=== PATIENT | male | born 1945 | race Caucasian/White ===

== ENCOUNTER 2023-03-12 09:05 | Emergency (ER) | payer MEDICARE, OTHER, SELFPAY ==
[2023-03-12 09:18] VITALS: BP 182/90; PULSE 52; RESP 16; TEMP 36.7; O2SAT 100; BMI 27.5
--- NOTE | 2023-03-12 09:23 | XR_ITS ---
The [address] [address] Patient Name: DAVID MCKINNEY MRN: [id number] date: 1945 Sex: M Assigned Patient Location: ER Current Patient Location: ED.MAIN Accession/Order Number: [id number] Exam Date: 03/12/2023 09:35 Report Date: 03/12/2023 10:13 At the request of: RADHA MCCALL Procedure: XR finger RT min 2V EXAM: XR finger RT min 2V HISTORY: injury , laceration to right middle finger COMPARISON: None. TECHNIQUE: 3 views of the right digit, third finger. FINDINGS: Metallic BB [place] area of concern. Bones: No acute or aggressive appearing bony lesion. Joints: Slight ulnar apex/flexion deformity of the third DIP joint, likely chronic in nature-clinical correlation is necessary. 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 Significant degenerative changes of the second DIP joint are also noted. Mild osteoarthritis of the third MCP joint. Soft tissues: There is focal soft tissue swelling at location of metallic BB in patient with known laceration. No radiopaque foreign body is demonstrated. XR/XR finger RT min 2V IMPRESSION: Significant soft tissue swelling at location of laceration without evidence of underlying acute bony change. Chronic findings as above. Electronically authenticated by: THALIA BLACKMON Date: 03/12/2023 10:13
[2023-03-12] MEDS: ADACEL DIPH,PERTUSS(ACELL),TET VAC/PF 0.5 ML ADULT SYRINGE IM (09:33)
[2023-03-12] MEDS: LIDOCAINE HCL 1% PF 20 MG/2 ML VIAL 5 ML INJ (09:59)
--- NOTE | 2023-03-12 10:26 | ED_ITS ---
HPI - General Adult General Chief complaint: Wound/Laceration Stated complaint: CUT FINGER ON R HAND Time Seen by Provider: 03/12/23 09:37 Source: patient Mode of arrival: walk-in Limitations: no limitations History of Present Illness HPI narrative: Patient is a 77-year-old male who is presenting to the Emergency Room with chief complaint of a right middle finger laceration of 3 cm, concave oblique laceration over the right proximal PIP joint of the right middle finger. Patient was working at home, this is not worker's comp related injury. Patient accidentally cut himself a piece of aluminum sheet metal when he is working on a project at home. Patient needs a tetanus update today. Patient is left-hand dominant. Patient is retired. 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 Patient had no pulsatile bleeding. Patient had no loss of motor or sensory function to the right middle finger. Patient has no other injury or acute complaints at this time. Patient blood pressure is elevated, it was checked manually in triage. Patient does take blood pressure medication. Patient is compliant medication. . All systems are negative except as noted/marked. All systems reviewed and otherwise negative. . Nurses note and vital signs reviewed and patient is not hypoxic. General: The patient appears well and in no apparent distress. Patient is resting comfortably on cart. Patient is not toxic, lethargic, or listless Skin: Warm, dry, no pallor noted. There is no rash noted. No petechiae, purpura. Patient has a 3 cm concave laceration with a oblique nature of the laceration over the right middle finger PIP joint, dorsal aspect. No venous or pulsatile bleeding at this time. Patient has full flexion and extension of the right middle finger with no difficulty. No tendon laceration noted. Patient has superficial and deep flexor tendons intact. Head: Normocephalic, atraumatic Eye: Normal conjunctiva, no drainage, EOMI. PERRL Ears, Nose, Mouth, and Throat: oral mucosa is moist. Nares patent. Mouth without vesicles. Cardiovascular: Regular Rate and Rhythm, no murmur, gallop, rub Respiratory: Patient is in no distress, no accessory muscle use, lungs are clear to auscultation, no wheezing, rales or rhonchi Musculoskeletal: Patient has full range of motion of all of the extremities, no motor, sensory, or focal neurological deficits. see skin assessment above Neurological: A&O x3, normal speech Psychiatric: Cooperative Related Data Previous Rx's Medication Instructions Recorded cephalexin 500 mg capsule 500 mg PO Q12H 7 days #14 caps 03/12/23 Allergies Allergy/AdvReac Type Severity Reaction Status Date / Time No Known Drug Allergies Allergy Verified 03/12/23 09:20 Exam Constitutional Vital Signs, click to edit/add: Last Vital Signs Temp 98.1 F 03/12/23 09:18 Pulse 52 L 03/12/23 09:18 Resp 16 03/12/23 09:18 BP 182/90 H 03/12/23 09:18 Pulse Ox 100 03/12/23 09:18 O2 Del Method Room Air 03/12/23 09:18 Course Vital Signs Vital signs: Vital Signs Temperature 98.1 F 03/12/23 09:18 Pulse Rate 52 L 03/12/23 09:18 Respiratory Rate 16 03/12/23 09:18 Blood Pressure 182/90 H 03/12/23 09:18 Pulse Oximetry 100 03/12/23 09:18 Oxygen Delivery Method Room Air 03/12/23 09:18 Temperature 98.1 F 03/12/23 09:18 Pulse Rate 52 L 03/12/23 09:18 Respiratory Rate 16 03/12/23 09:18 Blood Pressure 182/90 H 03/12/23 09:18 Pulse Oximetry 100 03/12/23 09:18 Oxygen Delivery Method Room Air 03/12/23 09:18 Medical Decision Making MDM Narrative Medical decision making narrative: Patient had a laceration working construction home project. Patient is left-hand dominant. Patient had a 3 cm concave somewhat irregular border stellate laceration over the right PIP joint of the right middle finger. Patient is left- hand dominant. Patient had 5 simple sutures placed. Patient's heart procedure well without difficulty. Patient is placed on Keflex prophylactically. Patient was sutures out in 9-[address] Serra will be taking sutures out. 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 Patient understands wound care but it was discussed anyway and on discharge paperwork. No questions at discharge. Discharge Plan Discharge Chief Complaint: Wound/Laceration Clinical Impression: Laceration Patient Disposition: Home, Self-Care Condition: Good Prescriptions / Home Meds: New cephalexin 500 mg capsule 500 mg PO Q12H 7 Days Qty: 14 0RF Instructions: Finger Laceration (ED) Additional Instructions: Sutures out in 9?10 days. Use topical antibiotic ointment 3-4 times a day to help with healing and prevent infection. Keep laceration clean and dry during the day, Leave it open to air and oxygen at nighttime to help with healing. Did not have your finger submerged underwater for the next 2 weeks, he can wash her hands and take a shower. We are finger aluminum splint for the next 3-4 days to help promote healing. Stand Alone Forms: Portal Instructions Referrals: ALEX SERRA [Primary Care Provider] - 1 week Procedures ED Procedure Instructions Procedures Procedures: Laceration repair done by Dr. Flores. Patient was cleaned, prepped, draped in normal sterile fashion. The patient was anesthetized with [4cc of 1 percent lidocaine]. Patient had a tourniquet placed for 15 minutes to the right middle finger. Patient had good anesthetic effect. Patient had his hand initially soaked in Hibiclens solution. Patient was cleaned with Betadine, patient was copiously irrigated with sterile water, approximately 100 mL. Using 3-0 Prolene suture, patient had 5 simple interrupted sutures placed To the 3 cm irregular, stellate flap with oblique nature. The base of the wound was seen. Patient had no tendon involvement. No pulsatile bleeding. Patient tolerated procedure well without difficulty. Patient's right middle finger was neurovascular intact Throughout after the tourniquet was removed. Normal cap refill.Patient was cleaned; bacitracin and dry dressing was placed. Patient had Telfa, dry dressing, and aluminum finger splint placed as well.
[2023-03-12] MEDS: BACITRACIN 0.9 GM PACKET 1 PACKET TOPICAL (10:33)
[2023-03-12 10:34] VITALS: BP 160/72
== END 2023-03-12 10:36 | disposition home or self-care (01) ==
PROVIDERS: Emergency Provider Emergency Medicine; PCP Family Medicine
DX: S61.212A Laceration without foreign body of right middle finger without damage to nail, initial encounter (principal); Z23 Encounter for immunization; W26.8XXA Contact with other sharp object(s), not elsewhere classified, initial encounter
CPT/HCPCS: 12002; 73140; 90471; 90715; 99284

== ENCOUNTER 2024-02-02 15:48 | Outpatient (OUT) | payer MEDICARE, OTHER, SELFPAY ==
--- NOTE | 2024-02-02 15:51 | US_ITS ---
The [address] [address] Patient Name: DAVID MCKINNEY MRN: [id number] date: 1945 Sex: M Assigned Patient Location: US Current Patient Location: US Accession/Order Number: [id number] Exam Date: 02/02/2024 16:00 Report Date: 02/02/2024 17:40 At the request of: SHUBHAM PAZ Procedure: US venous doppler UE LT EXAM: US venous doppler UE LT HISTORY: Left Arm Swelling With Redness, Left Arm Pain COMPARISON: None. TECHNIQUE: Multiple sonographic images of the deep veins of the left upper extremity were obtained, supplemented with Doppler. FINDINGS: The deep veins of the left upper extremity are fairly well visualized from the neck to the mid forearm. No filling defect is identified to indicate a thrombus. There is normal compression augmentation of flow to the accessible deep veins. US/US venous doppler UE LT IMPRESSION: There is no direct or indirect evidence of deep vein thrombosis in the left upper extremity at this time. Electronically authenticated by: ALICE TINEO Date: 02/02/2024 17:40
--- NOTE | 2024-02-02 15:51 | XR_ITS ---
The [address] [address] Patient Name: DAVID MCKINNEY MRN: [id number] date: 1945 Sex: M Assigned Patient Location: US Current Patient Location: Accession/Order Number: [id number] Exam Date: 02/02/2024 15:53 Report Date: 02/03/2024 07:31 At the request of: SHUBHAM PAZ Procedure: XR forearm LT 2V PROCEDURE: XR forearm LT 2V COMPARISON: None. HISTORY: Left Arm Swelling With Redness, Left Arm Pain FINDINGS: BONES:No acute fracture or dislocation. Joint space narrowing and subchondral cystic changes throughout the wrist. Chondrocalcinosis. No significant proliferative changes SOFT TISSUES:Negative. No visible soft tissue swelling. EFFUSION:None visible. OTHER: Negative. XR/XR forearm LT 2V IMPRESSION: Moderate erosive/inflammatory arthritis of the wrist Electronically authenticated by: SHRADDHA EAGLE Date: 02/03/2024 07:31
== END 2024-02-02 15:49 | disposition home or self-care (01) ==
LOC: US 15:48
PROVIDERS: PCP Family Medicine; Visit Provider Nurse Practitioner
DX: R60.0 Localized edema (principal); L53.9 Erythematous condition, unspecified; M79.632 Pain in left forearm; M13.832 Other specified arthritis, left wrist
CPT/HCPCS: 73090; 93971

== ENCOUNTER 2024-03-27 15:08 | Emergency (ER) | payer MEDICARE, OTHER, SELFPAY ==
[2024-03-27 15:16] VITALS: BP 168/72; PULSE 52; TEMP 36.3; O2SAT 98; BMI 24.8
--- OUTSIDE RECORDS SUMMARY | 2024-03-27 15:21 | XMS_ITS | CCD ---
Author Organization [facility]iniSyms Care Team Providers Care Trust Mail Clerk Name Role Phone DR NGOC WASHINGTON Attending Jeny WASHINGTON, DR NGOC Nguyen Admitting Unavailable SOMMER, DR NGOC Nguyen Primary Care Unavailable SOMMER, DR NGOC Nguyen Consulting Unavailable SOMMER, DR NGOC Nguyen Admitting Unavailable SOMMER, DR NGOC Nguyen Primary Care Unavailable SOMMER, DR NGOC Nguyen Consulting Unavailable SOMMER, DR NGOC Nguyen Attending Garima Anthony Primary Care Physician [phone] Yhoan Serra Attending Yohan Eli Attending Yohan Eli Attending Unavailable Yohan Serra Attending Garima Anthony Attending Garima Anthony Attending Unavailable Yohan Serra Attending Unavailable Yohan Serra Referring Unavailable John Whitt Attending John Hollis Attending Unavaila gage NONE, XXXX Referring Unavailable John Whitt Consulting John Hollis Admitting John Hollis Referring Griseldaa John Larkin Attending Griseldaa John Larkin Consulting Griseldaa John Larkin Consulting Unavaila Yohan Vega Attending Yohan Eli Attending Garima Anthony Attending Unavailable Allergies Allergy Classification Reported Allergen(s) Allergy Type Date of Onset Reaction(s) Facility (1 source) No Known Medication Allergies; Translations: [No Known Medication Allergies] Propensity to adverse reactions (disorder) [facility] Repository Medications Current Medications Medication Drug Class(es) Dates Sig (Normalized) Sig (Original) aspirin 81 mg delayed release oral tablet (3 sources) Platelet Aggregation Inhibitor, Nonsteroidal Anti-inflammatory Drug Start: 02-09-2019 take 1 mg by mouth once daily aspirin 81 mg Oral EC Tab mg tab(s), Oral, Daily, Refills(s) 0 Start Date: 02/09/19 Status: Ordered losartan potassium 100 mg oral tablet (3 sources) Angiotensin 2 Receptor Dimitry Start: 05-05-2023 take 1 tablet by mouth once daily losartan 100 mg Tab 100 mg = 1 tab(s), Oral, Daily, # 90 tab(s), Refills(s) 0, Pharmacy: [facility]/pharmacy #[id number], 158, cm, 05/05/23 10:49:00 EDT, Height/Length Dosing, 65.1, kg, 05/05/23 10:49:00 EDT, Weight Dosing Start Date: 05/05/23 Status: Ordered 24 hr metoprolol succinate 25 mg extended release oral tablet (3 sources) beta-Adrenergic Dimitry Start: 03-24-2023 take 1 tablet by mouth twice daily metoprolol 25 mg ER Tab 25 mg = 1 tab(s), Oral, BID, Refills(s) 0 Start Date: 03/24/23 Status: Ordered pantoprazole 40 mg extended release oral tablet (3 sources) Proton Pump Inhibitor Start: 02-09-2019 take 1 mg by mouth once daily pantoprazole 40 mg Oral EC Tab mg tab(s), Oral, Daily, Refills(s) 0 Start Date: 02/09/19 Status: Ordered rosuvastatin calcium 40 mg oral tablet (3 sources) HMG-CoA Reductase Inhibitor Start: 03-24-2023 take 1 tablet by mouth once daily rosuvastatin 40 mg Tab 40 mg = 1 tab(s), Oral, Daily, Refills(s) 0 Start Date: 03/24/23 Status: Ordered Problems Active Problems Problem Classification Problem Date Documented Date Episodic/Chronic Abdominal hernia (3 sources) Left inguinal hernia 02-09-2019 Episodic Conditions associated with dizziness or vertigo (3 sources) Dizziness 05-13-2023 Episodic Coronary atherosclerosis and other heart disease (3 sources) Coronary arteriosclerosis 02-09-2019 Chronic Esophageal disorders (3 sources) Gastroesophageal reflux disease 02-09-2019 Chronic Essential hypertension (3 sources) Hypertensive disorder 05-05-2023 Chronic Other injuries and conditions due to external causes (3 sources) Injury of finger 03-24-2023 Episodic Rheumatoid arthritis and related disease (3 sources) Rheumatoid arthritis 05-13-2023 Chronic Unclassified (3 sources) CONTACT W/AND (SUSP) EXPOS COVID-19; Translations: [CONTACT W/AND (SUSP) EXPOS COVID-19] Onset: 09-18-2020 Unclassified (3 sources) Patient encounter status 05-13-2023 Viral infection (1 source) COVID-19; Translations: [COVID-19] Onset: 09-06-2021 Past or Other Problems Problem Classification Problem Date Documented Da te Episodic/Chronic Unclassified (1 source) CONTACT W/AND (SUSP) EXPOS COVID-19; Translations: [CONTACT W/AND (SUSP) EXPOS COVID-19] Onset: 09-04-2021 Results Test Name Value Interpretation Reference Range Facil ity Physician Orderon 02-03-2024 Physician Order [id number]# 1.00TIFF [facility] RAD - MISCon 02-03-2024 RAD - MISC [id number]# 1.00TIFF [facility] RAD - Ultrasound Reporton RAD - Ultrasound Report [id number]# 1.00TIFF [facility] Ambulatory Visit Summaryon 0 02-02-2024 Ambulatory Visit Summary DAVID MCKINNEY :1945 Visit Date:02/02/2024 Ambulatory Visit Instructions Your Diagnosis Left arm swelling BMI 25.0-25.9,adult Non-smoker Wrist pain, left Your Care Team Attending Physician - Garima Arredondo Primary Care Physician - Garima Arredondo This Is Your Medications List aspirin (aspirin 81 mg Oral EC Tab) celecoxib (CeleBREX 200 mg Cap) losartan (losartan 100 mg Tab) methylPREDNISolone (Medrol 4 mg Tab) metoprolol (metoprolol 25 mg ER Tab) pantoprazole (Pantoprazole [address] Tab) rosuvastatin (rosuvastatin 40 mg Tab) tramadol (traMADOL 50 mg Tab) Procedures Performed Hip replacement (05/30/2020), Repair initial inguinal hernia, age 5 years or older; reducible (02/03/2019), Colonoscopy (09/29/2013), Placement of stent in cardiac conduit (08/25/2002), Repair of inguinal hernia (08/25/1979), Arthroscopy of knee. Discharge Vitals Heart Rate (Peripheral) 78 Respiratory Rate 18 Blood Pressure 152/72 Height 158.0 cm Height 62 in Weight 62.7 kg Weight 137.94 lb BMI 25.12 What to do next Scheduled Follow-Up Appointments Friday 8:00 AM EDT With: Where: [facility] Invalid Interpretation Code [address] [place] [address]- \.br\ Friday 8:15 AM EDT \.br\ With: Ponce ESPARZA, Yohan Rdz\.br\ Where: [facility] Family Medicine Office/Clini c Noteon 02-02-2024 Family Medicine Office/Clinic Note HPI Staff David is a 78 year old male presenting for acute visit Onset: Location: left hand/wrist Aggravated by: movement Relieved by: nothing Questions/Concerns: pt states he was cutting something and felt a pop left wrist. pt can't move hand and pain is aching burning sharp. 04/03, Has been taking Aleve and doesn't help it at all, Ice but didn't help, has been elevating. History of Present Illness pt presents today with left lower arm swelling and pain Review of Systems PHQ Score Initial Depression Screen Score: 0 SCORE Physical Exam Vitals & Measurements HR: 78(Peripheral) RR: 18 BP: 152/72 SpO2: 94% HT: 62 in HT: 158.0 cm WT: 62.7 kg WT: 137.94 lb BMI: 25.12 General: alert, no acute distress ENMT: oral mucosa moist, no pharyngeal erythema or exudate Cardiovascular: regular rate and rhythm, normal peripheral perfusion Respiratory: Lungs CTA, respirations non labored Extremities: no deformity, no trauma Neurological: oriented x 4, LOC appropriate for age, CN II-XII intact, motor strength equal & normal bilaterally, speech normal left lower arm is swollen, tender to touch or movement and warm to touch Assessment/Plan 1. Left arm swelling (M79.89: Other specified soft tissue disorders) pt was cutting siding and felt a pop in his left wrist on of last week. swelling didn't start until this weekend. left lower arm is swollen, tender to touch or any movement and red and warm to touch. will send to [facility] for doppler u/s and x ray. will call with results if those images are negative will order MRI. RTC 1 week Ordered: celecoxib, 200 mg = 1 cap(s), Oral, BID, # 60 cap(s), Refills(s) 0, Pharmacy: [facility]/pharmacy #[id number], 158, cm, 02/02/24 15:19:00 EDT, Height/Length Dosing, 62.7, kg, 02/02/24 15:19:00 EDT, Weight Dosing methylPREDNISolone, = 1 packet(s), Oral, As Directed, as directed on package labeling, X 6 day(s), # 21 tab(s), Refills(s) 0, Pharmacy: [facility]/pharmacy #[id number], 158, cm, 02/02/24 15:19:00 EDT, Height/Length Dosing, 62.7, kg, 02/02/24 15:19:00 EDT, Weight Dosing tramadol, 50 mg = 1 tab(s), Oral, Bedtime, # 12 tab(s), Refills(s) 0, Pharmacy: [facility]/pharmacy #[id number], 158, cm, 02/02/24 15:19:00 EDT, Height/Length Dosing, 62.7, kg, 02/02/24 15:19:00 EDT, Weight Dosing 2. BMI 25.0-25.9,adult (Z68.25: Body mass index [BMI] 25.0-25.9, adult) BMI education complete Ordered: celecoxib, 200 mg = 1 cap(s), Oral, BID, # 60 cap(s), Refills(s) 0, Pharmacy: [facility]/pharmacy #[id number], 158, cm, 02/02/24 15:19:00 EDT, Height/Length Dosing, 62.7, kg, 02/02/24 15:19:00 EDT, Weight Dosing methylPREDNISolone, = 1 packet(s), Oral, As Directed, as directed on package labeling, X 6 day(s), # 21 tab(s), Refills(s) 0, Pharmacy: [facility]/pharmacy #[id number], 158, cm, 02/02/24 15:19:00 EDT, Height/Length Dosing, 62.7, kg, 02/02/24 15:19:00 EDT, Weight Dosing tramadol, 50 mg = 1 tab(s), Oral, Bedtime, # 12 tab(s), Refills(s) 0, [id number] 158, cm, 02/02/24 15:19:00 EDT, Height/Length Dosing, 62.7, kg, 02/02/24 15:19:00 EDT, Weight Dosing 3. Non-smoker (Z78.9: Other specified health status) continue not smoking Ordered: celecoxib, 200 mg = 1 cap(s), Oral, BID, # 60 cap(s), Refills(s) 0, [id number], 158, cm, 02/02/24 15:19:00 EDT, Height/Length Dosing, 62.7, kg, 02/02/24 15:19:00 EDT, Weight Dosing methylPREDNISolone, = 1 packet(s), Oral, As Directed, as directed on package labeling, X 6 day(s), # 21 tab(s), Refills(s) 0, [id number], 158, cm, 02/02/24 15:19:00 EDT, Height/Length Dosing, 62.7, kg, 02/02/24 15:19:00 EDT, Weight Dosing tramadol, 50 mg = 1 tab(s), Oral, Bedtime, # 12 tab(s), Refills(s) 0, [id number], 158, cm, 02/02/24 15:19:00 EDT, Height/Length Dosing, 62.7, kg, 02/02/24 15:19:00 EDT, Weight Dosing Wrist pain, left (M25.532: Pain in left wrist) will send anti inflammatory, medrol dose pack and tramadol Ordered: tramadol, 50 mg = 1 tab(s), Oral, Bedtime, # 12 tab(s), Refills(s) 0, [id number], 158, cm, 02/02/24 15:19:00 EDT, Height/Length Dosing, 62.7, kg, 02/02/24 15:19:00 EDT, Weight Dosing Follow-up No qualifying data available Problem List/Past Medical History Ongoing BMI 27.0-27.9,adult CAD (coronary artery disease) Colon cancer screening Dizziness GERD (gastroesophageal reflux disease) HTN (hypertension) Hyperlipidemia Left arm swelling Left inguinal hernia RA (rheumatoid arthritis) Historical No qualifying data Procedure/Surgical History Hip replacement (05/30/2020), Repair initial inguinal hernia, age 5 years or older; reducible (02/03/2019), Colonoscopy (09/29/2013), Placement of stent in cardiac conduit (08/25/2002), Repair of inguinal hernia (08/25/1979), Arthroscopy of knee. Medications aspirin 81 mg Oral EC Tab, Oral, Daily CeleBREX 200 mg Cap, 200 mg= 1 cap(s), Oral, BID losartan 100 mg Tab, 100 mg= 1 tab(s), Oral, Daily, 1 refills Medrol 4 mg Tab, 1 packet(s), Oral, As Directed metopr (more content not included)... [facility] Comment on above: Result Comment: Elec tronically Signed By: Garima Arredondo\.br\Date and Time Signed: 02/02/24 15:39 EDT Ambulatory Visit Summaryon 0 12-23-2023 Ambulatory Visit Summary DAVID MCKINNEY :1945 Visit Date:12/23/2023 Ambulatory Visit Instructions Your Diagnosis HTN (hypertension) Dizziness RA (rheumatoid arthritis) CAD (coronary artery disease) BMI 26.0-26.9,adult Over weight Nonsmoker Your Care Team Attending Physician - Yohan Serra MD Primary Care Physician - Garima Arredondo This Is Your Medications List aspirin (aspirin 81 mg Oral EC Tab) losartan (losartan 100 mg Tab) metoprolol (metoprolol 25 mg ER Tab) pantoprazole (Pantoprazole [address] Tab) rosuvastatin (rosuvastatin 40 mg Tab) Procedures Performed Hip replacement (05/30/2020), Repair initial inguinal hernia, age 5 years or older; reducible (02/03/2019), Colonoscopy (09/29/2013), Placement of stent in cardiac conduit (08/25/2002), Repair of inguinal hernia (08/25/1979), Arthroscopy of knee. Discharge Vitals Temperature (Temporal Artery) 36.4 ?C Heart Rate (Peripheral) 58 Respiratory Rate 16 Blood Pressure 112/70 Height 158 cm Height 62 in Weight 65.8 kg Weight 144.76 lb BMI 26.36 What to do next Scheduled Follow-Up Appointments Friday 8:00 AM EDT With: Where: [facility] Invalid Interpretation Code [address] [place] [address]- \.br\ Friday 8:15 AM EDT \.br\ With: Ponce ESPARZA, Yohan Rdz\.br\ Where: [facility] Medicine Office/Clini c Noteon 12-23-2023 Family Medicine Office/Clinic Note HPI Staff David is a 78 year old male presenting for one month follow up htn and CAD Patient is here for follow up on hypertension. How often are you checking your blood pressure? occasionally What are your average readings? doing well Yearly BMP: 04/29/23 [facility] questions/concerns: saw supervisor carbon electrodes Jul 10 everything checked out okay Review of Systems PHQ Score Initial Depression Screen Score: 0 SCORE Physical Exam Vitals & Measurements T: 36.4 ?C(Temporal Artery) HR: 58(Peripheral) RR: 16 BP: 112/70 SpO2: 99% HT: 62 in HT: 158 cm WT: 65.8 kg WT: 144.76 lb BMI: 26.36 Assessment/Plan 1. HTN (hypertension) (I10: Essential (primary) hypertension) - At goal. - NO issues. - Will refill. - No issues with meds 2. Dizziness (R42: Dizziness and giddiness) - No dizziness today - Will monitor 3. RA (rheumatoid arthritis) (M06.9: Rheumatoid arthritis, unspecified) - Continue as before. - Follow up PRN - Not on meds 4. CAD (coronary artery disease) (I25.10: Atherosclerotic heart disease of [place] coronary artery without angina pectoris) - Stable. - Seeing cardio - No CP 5. BMI 26.0-26.9,adult (Z68.26: Body mass index [BMI] 26.0-26.9, adult) - BMI education given 6. Over weight (E66.3: Overweight) - Diet and exercise advised 7. Nonsmoker (Z78.9: Other specified health status) - Please continue to not smoke. Orders: losartan, 100 mg = 1 tab(s), Oral, Daily, # 90 tab(s), Refills(s) 1, Pharmacy: [facility]/pharmacy #[id number], 158, cm, 12/23/23 8:11:00 EDT, Height/Length Dosing, 65.8, kg, 12/23/23 8:11:00 EDT, Weight Dosing pantoprazole, 40 mg = 1 tab(s), Oral, Daily, # 90 tab(s), Refills(s) 1, Pharmacy: [facility]/pharmacy #[id number], 158, cm, 12/23/23 8:11:00 EDT, Height/Length Dosing, 65.8, kg, 12/23/23 8:11:00 EDT, Weight Dosing Follow-up No qualifying data available Patient Education BMI for Adults Problem List/Past Medical History Ongoing BMI 27.0-27.9,adult CAD (coronary artery disease) Colon cancer screening Dizziness GERD (gastroesophageal reflux disease) HTN (hypertension) Hyperlipidemia Left inguinal hernia RA (rheumatoid arthritis) Historical No qualifying data Procedure/Surgical History Hip replacement (05/30/2020), Repair initial inguinal hernia, age 5 years or older; reducible (02/03/2019), Colonoscopy (09/29/2013), Placement of stent in cardiac conduit (08/25/2002), Repair of inguinal hernia (08/25/1979), Arthroscopy of knee. Medications aspirin 81 mg Oral EC Tab, Oral, Daily losartan 100 mg Tab, 100 mg= 1 tab(s), Oral, Daily, 1 refills metoprolol 25 mg ER Tab, 25 mg= 1 tab(s), Oral, BID Pantoprazole [address] Tab, 40 mg= 1 tab(s), Oral, Daily, 1 refills rosuvastatin 40 mg Tab, 40 mg= 1 tab(s), Oral, Daily Allergies No Known Medication Allergies Social History Alcohol - Denies Alcohol Use, 02/17/2019 Current, Beer, Liquor, 1-2 times per month, 1 drinks/episode average. 2.00 drinks/episode maximum. Alcohol use interferes with work or home: No. Drinks more than intended: No. Others hurt by drinking: No. Ready to change: No. Household alcohol concerns: No., 04/15/2023 Substance Abuse - Denies Substance Abuse, 02/17/2019 Tobacco Never (less than 100 in lifetime) Tobacco Use:. Never Smokeless Tobacco Use:. Household tobacco concerns: No., 12/23/2023 Family History Cardiac arrest: Father. Immunizations Vaccine Date Status Comments influenza virus vaccine, inactivated 04/26/2023 Recorded influenza virus vaccine, inactivated 08/02/2022 Recorded SARS-CoV-2 (COVID-19) [id number] 08/02/2022 Recorded influenza virus vaccine, inactivated 08/28/2021 Recorded SARS-CoV-2 (COVID-19) mRNA BNT-162b2 vax 05/25/2021 Recorded 2023-03-24: TPV70 SARS-CoV-2 (COVID-19) mRNA BNT-162b2 vax 10/17/2020 Recorded 2023-03-24: TPV70 SARS-CoV-2 (COVID-19) mRNA BNT-162b2 vax 09/26/2020 Recorded 2023-03-24: TPV70 pneumococcal 13-valent vaccine 05/07/2020 Recorded influenza virus vaccine, inactivated 05/07/2020 Recorded influenza virus vaccine, inactivated 06/06/2019 Recorded [facility] Comment on above: Result Comment: Elec tronically Signed By: Ponce ESPARZA, Yohan Garcia.br\Date and Time Signed: 12/23/23 08:35 EDT Patient Educationon 12-23-19 Patient Education Nutrition BMI for Adults What is BMI? Body mass index (BMI) is a number that is calculated from a person's weight and height. BMI can help estimate how much of a person's weight is composed of fat. BMI does not measure body fat directly. Rather, it is an alternative to procedures that directly measure body fat, which can be difficult and expensive. BMI can help identify people who may be at higher risk for certain medical problems. What are BMI measurements used for? BMI is used as a screening tool to identify possible weight problems. It helps determine whether a person is obese, overweight, a healthy weight, or underweight. BMI is useful for: ? Identifying a weight problem that may be related to a medical condition or may increase the risk for medical problems. ? Promoting changes, such as changes in diet and exercise, to help reach a healthy weight. BMI screening can be repeated to see if these changes are working. How is BMI calculated? BMI involves measuring your weight in relation to your height. Both height and weight are measured, and the BMI is calculated from those numbers. This can be done either in [place] or metric measurements. Note that charts and online BMI calculators are available to help you find your BMI quickly and easily without having to do these calculations yourself. To calculate your BMI in [place] measurements: 1. Measure your weight in pounds (lb). 2. Multiply the number of pounds by 703. ? For example, for a person who weighs 180 lb, multiply that number by 703, which equals 126,540. 3. Measure your height in inches. Then multiply that number by itself to get a measurement called inches squared. ? For example, for a person who is 70 inches tall, the inches squared measurement is 70 inches x 70 inches, which equals 4,900 inches squared. 4. Divide the total from step 2 (number of lb x 703) by the total from step 3 (inches squared): 126,540 ? 4,900 = 25.8. This is your BMI. To calculate your BMI in metric measurements: 1. Measure your weight in kilograms (kg). 2. Measure your height in meters (m). Then multiply that number by itself to get a measurement called meters squared. ? For example, for a person who is 1.75 m tall, the meters squared measurement is 1.75 m x 1.75 m, which is equal to 3.1 meters squared. 3. Divide the number of kilograms (your weight) by the meters squared number. In this example: 70 ? 3.1 = 22.6. This is your BMI. What do the results mean? BMI charts are used to identify whether you are underweight, normal weight, overweight, or obese. The following guidelines will be used: ? Underweight: BMI less than 18.5. ? Normal weight: BMI between 18.5 and 24.9. ? Overweight: BMI between 25 and 29.9. ? Obese: BMI of 30 or above. Keep these notes in mind: ? Weight includes both fat and muscle, so someone with a muscular build, such as an athlete, may have a BMI that is higher than 24.9. In cases like these, BMI is not an accurate measure of body fat. ? To determine if excess body fat is the cause of a BMI of 25 or higher, further assessments may need to be done by a health care provider. ? BMI is usually interpreted in the same way for men and women. Where to find more information For more information about BMI, including tools to quickly calculate your BMI, go to these websites: ? Centers for Disease Control and Prevention: www.cdc.gov ? [place] [employer]: www.heart.org ? National Heart, Lung, and Blood [place]: www.nhlbi.nih.gov Summary ? Body mass index (BMI) is a number that is calculated from a person's weight and height. ? BMI may help estimate how much of a person's weight is composed of fat. BMI can help identify those who may be at higher risk for certain medical problems. ? BMI can be measured using [place] measurements or metric measurements. ? BMI charts are used to identify whether you are underweight, normal weight, overweight, or obese. This information is not intended to replace advice given to you by your health care provider. Make sure you discuss any questions you have with your health care provider. Document Revised: 05/03/2020 Document Reviewed: 03/10/2020 [employer] Savings Program Patient Education ? 2022 [employer]. [facility] Ambulatory Visit Summaryon 0 11-10-2023 Ambulatory Visit Summary DAVID MCKINNEY :1945 Visit Date:11/10/2023 Ambulatory Visit Instructions Your Diagnosis GERD (gastroesophageal reflux disease) HTN (hypertension) CAD (coronary artery disease) Hyperlipidemia RA (rheumatoid arthritis) Dizziness BMI 27.0-27.9,adult Your Care Team Attending Physician - Yohan Serra MD Primary Care Physician - Garima Arredondo This Is Your Medications List losartan (losartan 100 mg Tab) pantoprazole (Pantoprazole [address] Tab) Contact prescribing physician if questions or concerns aspirin (aspirin 81 mg Oral EC Tab) metoprolol (metoprolol 25 mg ER Tab) rosuvastatin (rosuvastatin 40 mg Tab) Procedures Performed Hip replacement (05/30/2020), Repair initial inguinal hernia, age 5 years or older; reducible (02/03/2019), Colonoscopy (09/29/2013), Placement of stent in cardiac conduit (08/25/2002), Repair of inguinal hernia (08/25/1979), Arthroscopy of knee. Discharge Vitals Heart Rate (Peripheral) 68 Blood Pressure 130/70 Height 62 in Height 158 cm Weight 149.82 lb Weight 68.1 kg BMI 27.28 What to do next Scheduled Follow-Up Appointments Friday 8:15 AM EDT With: Yohan Serra MD Where: [facility] Invalid Interpretation Code [address] [place] [address]- \.br\ Friday 8:00 AM EDT \.br\ With: Yohan Serra MD\.br\ Where: [facility] Medicine Office/Clini c Noteon 11-10-2023 Family Medicine Office/Clinic Note Chief Complaint follow up HPI Staff David is a 78 year old male presenting for 6 month follow up HTN, GERD, CAD Patient is here for follow up on hypertension. How often are you checking your blood pressure? occasionally What are your average readings? _ Yearly BMP: Here for follow up on GERD. Melena? no Dysphagia? no Weight loss? no Persistent vomiting? no Have you ever had an EGD? yes 2013 Refill needed?: no flu: UTD 04/26/23 History of Present Illness - Here for follow up. - NO issues - See staff HPI. Review of Systems PHQ Score Initial Depression Screen Score: 0 SCORE Physical Exam Vitals & Measurements HR: 68(Peripheral) BP: 130/70 SpO2: 96% HT: 62 in HT: 158 cm WT: 68.1 kg WT: 149.82 lb BMI: 27.28 General: alert, no acute distress ENMT: oral mucosa moist, Cardiovascular: regular rate and rhythm, normal peripheral perfusion Respiratory: Lungs CTA, respirations non labored Extremities: no deformity, no trauma Neurological: oriented x 4, LOC appropriate for age, CN II-XII intact, motor strength equal & normal bilaterally, speech normal, Changes noted in the DIP joints Abdomen: Soft, Nontender, Non-distended, + BS Assessment/Plan 1. GERD (gastroesophageal reflux disease) (K21.9: Gastro-esophageal reflux disease without esophagitis) - Well controlled. - Follow up PRN 2. HTN (hypertension) (I10: Essential (primary) hypertension) - Controlled - Will refill meds - Follow up with Cardiology 3. CAD (coronary artery disease) (I25.10: Atherosclerotic heart disease of [place] coronary artery without angina pectoris) - ASA and statins - No CP 4. Hyperlipidemia (E78.5: Hyperlipidemia, unspecified) - Continue on meds as before. 5. RA (rheumatoid arthritis) (M06.9: Rheumatoid arthritis, unspecified) - PRN NSAIDs - NO issues 6. Dizziness (R42: Dizziness and giddiness) - Improved - Intermittent 7. BMI 27.0-27.9,adult (Z68.27: Body mass index [BMI] 27.0-27.9, adult) - BMI education given Orders: losartan, 100 mg = 1 tab(s), Oral, Daily, # 90 tab(s), Refills(s) 1, [id number], 158, cm, 11/10/23 9:58:00 EDT, Height/Length Dosing, 68.1, kg, 11/10/23 9:58:00 EDT, Weight Dosing pantoprazole, 40 mg = 1 tab(s), Oral, Daily, # 90 tab(s), Refills(s) 1, [id number], 158, cm, 11/10/23 9:58:00 EDT, Height/Length Dosing, 68.1, kg, 11/10/23 9:58:00 EDT, Weight Dosing Follow-up No qualifying data available Patient Education BMI for Adults Problem List/Past Medical History Ongoing BMI 27.0-27.9,adult CAD (coronary artery disease) Colon cancer screening Dizziness GERD (gastroesophageal reflux disease) HTN (hypertension) Hyperlipidemia Left inguinal hernia RA (rheumatoid arthritis) Historical No qualifying data Procedure/Surgical History Hip replacement (05/30/2020), Repair initial inguinal hernia, age 5 years or older; reducible (02/03/2019), Colonoscopy (09/29/2013), Placement of stent in cardiac conduit (08/25/2002), Repair of inguinal hernia (08/25/1979), Arthroscopy of knee. Medications aspirin 81 mg Oral EC Tab, Oral, Daily losartan 100 mg Tab, 100 mg= 1 tab(s), Oral, Daily, 1 refills metoprolol 25 mg ER Tab, 25 mg= 1 tab(s), Oral, BID Pantoprazole [address] Tab, 40 mg= 1 tab(s), Oral, Daily, 1 refills rosuvastatin 40 mg Tab, 40 mg= 1 tab(s), Oral, Daily Allergies No Known Medication Allergies Social History Alcohol - Denies Alcohol Use, 02/17/2019 Current, Beer, Liquor, 1-2 times per month, 1 drinks/episode average. 2.00 drinks/episode maximum. Alcohol use interferes with work or home: No. Drinks more than intended: No. Others hurt by drinking: No. Ready to change: No. Household alcohol concerns: No., 04/15/2023 Substance Abuse - Denies Substance Abuse, 02/17/2019 Tobacco Never (less than 100 in lifetime) Tobacco Use:. Never Smokeless Tobacco Use:. Household tobacco concerns: No., 11/10/2023 Family History Cardiac arrest: Father. Immunizations Vaccine Date Status Comments influenza virus vaccine, inactivated 04/26/2023 Recorded influenza virus vaccine, inactivated 08/02/2022 Recorded SARS-CoV-2 (COVID-19) [id number] 08/02/2022 Recorded influenza virus vaccine, inactivated 08/28/2021 Recorded SARS-CoV-2 (COVID-19) mRNA BNT-162b2 vax 05/25/2021 Recorded 2023-03-24: TPV70 SARS-CoV-2 (COVID-19) mRNA BNT-162b2 vax 10/17/2020 Recorded 2023-03-24: TPV70 SARS-CoV-2 (COVID-19) mRNA BNT-162b2 vax 09/26/2020 Recorded 2023-03-24: TPV70 pneumococcal 13-valent vaccine 05/07/2020 Recorded influenza virus vaccine, inactivated 05/07/2020 Recorded influenza virus vaccine, inactivated 06/06/2019 Recorded Normal [facility] Comment on above: Result Comment: Elec tronically Signed By: Ponce ESPARZA, Yohan Velasquezbr\Date and Time Signed: 11/10/23 10:47 EDT Patient Educationon 03-18-20 24 Patient Education Nutrition BMI for Adults What is BMI? Body mass index (BMI) is a number that is calculated from a person's weight and height. BMI can help estimate how much of a person's weight is composed of fat. BMI does not measure body fat directly. Rather, it is an alternative to procedures that directly measure body fat, which can be difficult and expensive. BMI can help identify people who may be at higher risk for certain medical problems. What are BMI measurements used for? BMI is used as a screening tool to identify possible weight problems. It helps determine whether a person is obese, overweight, a healthy weight, or underweight. BMI is useful for: ? Identifying a weight problem that may be related to a medical condition or may increase the risk for medical problems. ? Promoting changes, such as changes in diet and exercise, to help reach a healthy weight. BMI screening can be repeated to see if these changes are working. How is BMI calculated? BMI involves measuring your weight in relation to your height. Both height and weight are measured, and the BMI is calculated from those numbers. This can be done either in [place] or metric measurements. Note that charts and online BMI calculators are available to help you find your BMI quickly and easily without having to do these calculations yourself. To calculate your BMI in [place] measurements: 1. Measure your weight in pounds (lb). 2. Multiply the number of pounds by 703. ? For example, for a person who weighs 180 lb, multiply that number by 703, which equals 126,540. 3. Measure your height in inches. Then multiply that number by itself to get a measurement called inches squared. ? For example, for a person who is 70 inches tall, the inches squared measurement is 70 inches x 70 inches, which equals 4,900 inches squared. 4. Divide the total from step 2 (number of lb x 703) by the total from step 3 (inches squared): 126,540 ? 4,900 = 25.8. This is your BMI. To calculate your BMI in metric measurements: 1. Measure your weight in kilograms (kg). 2. Measure your height in meters (m). Then multiply that number by itself to get a measurement called meters squared. ? For example, for a person who is 1.75 m tall, the meters squared measurement is 1.75 m x 1.75 m, which is equal to 3.1 meters squared. 3. Divide the number of kilograms (your weight) by the meters squared number. In this example: 70 ? 3.1 = 22.6. This is your BMI. What do the results mean? BMI charts are used to identify whether you are underweight, normal weight, overweight, or obese. The following guidelines will be used: ? Underweight: BMI less than 18.5. ? Normal weight: BMI between 18.5 and 24.9. ? Overweight: BMI between 25 and 29.9. ? Obese: BMI of 30 or above. Keep these notes in mind: ? Weight includes both fat and muscle, so someone with a muscular build, such as an athlete, may have a BMI that is higher than 24.9. In cases like these, BMI is not an accurate measure of body fat. ? To determine if excess body fat is the cause of a BMI of 25 or higher, further assessments may need to be done by a health care provider. ? BMI is usually interpreted in the same way for men and women. Where to find more information For more information about BMI, including tools to quickly calculate your BMI, go to these websites: ? Centers for Disease Control and Prevention: www.cdc.gov ? [place] [employer] Association: www.heart.org ? National Heart, Lung, and Blood [place]: www.nhlbi.nih.gov Summary ? Body mass index (BMI) is a number that is calculated from a person's weight and height. ? BMI may help estimate how much of a person's weight is composed of fat. BMI can help identify those who may be at higher risk for certain medical problems. ? BMI can be measured using [place] measurements or metric measurements. ? BMI charts are used to identify whether you are underweight, normal weight, overweight, or obese. This information is not intended to replace advice given to you by your health care provider. Make sure you discuss any questions you have with your health care provider. Document Revised: 05/03/2020 Document Reviewed: 03/10/2020 [employer] Patient Education ? 2022 [employer] [facility] Heart and Vascular Office/Cl inic Noteon 07-19-2023 Heart and Vascular Office/Clinic Note Chief Complaint here for test results History of Present Illness David Mckinney is a 78-year-old male who presents today for a follow-up evaluation of coronary artery disease, remote percutaneous coronary intervention, normal left ventricle function, had a nuclear stress which is negative, a carotid ultrasound also normal, and echocardiogram was normal. David Mckinney explains that he is doing well. His most recent carotid ultrasound did not reveal any blockages in his carotid arteries. His heart stress test and echocardiogram were normal. The patient has a history of cardiac stent procedures. The patient reports an episode of dizziness during which he felt a sensation of imminent fainting upon looking upwards. He denies experiencing any similar episodes since his last visit. Review of Systems Constitutional: no fever, no sweats, no weakness Skin: no rash, no lesions, no bruising/petechiae ENMT: no sore throat, no congestion, no hoarseness Respiratory: no shortness of breath, no cough, no orthopnea, no wheezing Cardiovascular: no chest pain, no palpitations, no edema Gastrointestinal: no nausea, no vomiting, no diarrhea, no GI bleeding Genitourinary: no anuria/oliguria no hematuria Musculoskeletal: no back pain, no trauma Neurologic: no headache, Positive dizziness, no numbness, no weakness Psychiatric: no sleeping problems, no irritability, no anxiety/depression. Heme/Lymph: no bleeding tendency, no bruising tendency Allergy/Immunologic: no recurrent infections, no impaired immunity Additional ROS info: Except as noted in the above Review of Systems and in the History of Present Illness all other systems have been reviewed and are negative or noncontributory Physical Exam Vitals & Measurements HR: 63(Peripheral) BP: 138/68 SpO2: 96% HT: 62 in HT: 158 cm WT: 67.5 kg WT: 148.5 lb BMI: 27.04 General: alert, no acute distress Skin: warm, dry intact Head: atraumatic, normocephalic Neck: trachea midline, no JVD, no bruit Eye: normal conjunctiva, sclera clear ENMT: oral mucosa moist Cardiovascular: regular rate and rhythm, no murmur, normal peripheral perfusion Respiratory: lungs CTA, respirations non labored Chest wall: no deformity. Gastrointestinal: soft, non-distended, no tenderness, no guarding. Back: no tenderness, normal ROM, normal alignment. Extremities: no edema, no deformity, no trauma Neurological: oriented x 4, LOC appropriate for age, sensation equal & normal bilaterally, speech normal Psychiatric: cooperative, affect appropriate for age, normal judgement, normal psychiatric thoughts. Assessment/Plan David Mckinney is a 78-year-old male with a history of coronary artery disease, remote percutaneous coronary intervention, normal left ventricle function, had a nuclear stress test which is negative, a carotid ultrasound and echocardiogram which were normal. His symptoms were caused by looking up, so we are going to recommend for now that we just avoid that action and that is probably vertigo. If this happens further, he will tell us. Follow up in 6 months. ATTESTATION: Portions of this record may have been created with voice recognition artificial intelligence software, specifically [employer] and or [employer]. Substitutions may have occurred due to the inherent limitations of voice recognition and artificial intelligence software. Documentation services were performed after patient or guardian consented to allow [employer] to record this visit. ION instructional technology specialist and provider reviewed before signing. ION: Irene Crespo Follow-up No qualifying data available Problem List/Past Medical History Ongoing CAD (coronary artery disease) Colon cancer screening Dizziness Finger injury GERD (gastroesophageal reflux disease) HTN (hypertension) Left inguinal hernia RA (rheumatoid arthritis) Historical No qualifying data Procedure/Surgical History Hip replacement (05/30/2020), Repair initial inguinal hernia, age 5 years or older; reducible (02/03/2019), Colonoscopy (09/29/2013), Placement of stent in cardiac conduit (08/25/2002), Repair of inguinal hernia (08/25/1979), Arthroscopy of knee. Medications aspirin 81 mg Oral EC Tab, Oral, Daily losartan 100 mg Tab, 100 mg= 1 tab(s), Oral, Daily metoprolol 25 mg ER Tab, 25 mg= 1 tab(s), Oral, BID pantoprazole 40 mg Oral EC Tab, Oral, Daily rosuvastatin 40 mg Tab, 40 mg= 1 tab(s), Oral, Daily Allergies No Known Medication Allergies Social History Alcohol - Denies Alcohol Use, 02/17/2019 Current, Beer, Liquor, 1-2 times per month, 1 drinks/episode average. 2.00 drinks/episode maximum. Alcohol use interferes with work or home: No. Drinks more than intended: No. Others hurt by drinking: No. Ready to change: No. Household alcohol concerns: No., 04/15/2023 Substance Abuse - Denies Substance Abuse, 02/17/2019 Tobacco Never (less than 100 in lifetime) Tobacco Use:. Never (more content not included)... [facility] Comment on above: Result Comment: Elec tronically Signed By: John Whitt MD\.br\Date and Time Signed: 07/19/23 12:36 EST\.br\Electronically Co-Signed By: Irene Crespo\.br\Date and Time Co-Signed: 07/10/23 17:06 EST Physician Orderon 07-11-2023 Physician Order [id number] 5#1.00TIFF [facility] Heart and Vascular Office/Cl inic Noteon 07-10-2023 Heart and Vascular Office/Clinic Note Chief Complaint here to establish care History of Present Illness HPI: David Mckinney is a 77-year-old male who presents today to establish care. The patient reports a sudden sensation of lightheadedness and near-syncope while installing running boards beneath his truck 2 months ago. Two days later, he had an appointment with Dr. Serra for evaluation of his symptoms and at that time, his blood pressure was more than 212 mmHg in systole. Subsequently, he experienced persistent episodes of lightheadedness, coupled with fluctuating blood pressure readings. His blood pressure has been well controlled since starting on blood pressure medications with a systolic pressure of above 116 mmHg and a diastolic pressure ranging from 60 to 70 mmHg. His pulse rate has been consistently in the range of 145 to 156 bpm. The patient states he had his carotids evaluated a few years ago through a program in [facility] and had no significant findings. The patient reports a history of 4 stents and notes no complications with them apart from occasional mild chest discomfort. He had an echocardiogram prior to his hip surgery on 05/30/2020 in [place]. It has been some time since his last stress test. 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 FAMILY HISTORY The patient's brother about 1 month ago. Review of Systems Constitutional: no fever, no sweats, no weakness Skin: no rash, no lesions, no bruising/petechiae ENMT: no sore throat, no congestion, no hoarseness Respiratory: no shortness of breath, no cough, no orthopnea, no wheezing Cardiovascular: no chest pain, no palpitations, no edema Gastrointestinal: no nausea, no vomiting, no diarrhea, no GI bleeding Genitourinary: no anuria/oliguria no hematuria Musculoskeletal: no back pain, no trauma Neurologic: no headache, no dizziness, no numbness, no weakness Psychiatric: no sleeping problems, no irritability, no anxiety/depression. Heme/Lymph: no bleeding tendency, no bruising tendency Allergy/Immunologic: no recurrent infections, no impaired immunity Additional ROS info: Except as noted in the above Review of Systems and in the History of Present Illness all other systems have been reviewed and are negative or noncontributory Physical Exam Vitals & Measurements HR: 51(Peripheral) BP: 140/78 SpO2: 96% HT: 62 in HT: 158 cm WT: 66.3 kg WT: 145.86 lb BMI: 26.56 General: alert, no acute distress Skin: warm, dry intact Head: atraumatic, normocephalic Neck: trachea midline, no JVD, carotid sound good, no bruit Eye: normal conjunctiva, sclera clear ENMT: oral mucosa moist Cardiovascular: regular rate and rhythm, no murmur, normal peripheral perfusion Respiratory: lungs CTA, respirations non labored Chest wall: no deformity. Gastrointestinal: soft, non-distended, no tenderness, no guarding. Back: no tenderness, normal ROM, normal alignment. Extremities: no edema, no deformity, no trauma Neurological: oriented x 4, LOC appropriate for age, sensation equal & normal bilaterally, speech normal Psychiatric: cooperative, affect appropriate for age, normal judgement, normal psychiatric thoughts. Assessment/Plan Assessment/Plan David Mckinney is a 77-year-old male with CAD, prior PCI, hypertension, and hyperlipidemia. He was recently hypertensive with some fprnqcelg-fd-twdhpbk blood pressure. He did improve after Dr. Serra changed his blood pressure medications. He is on a statin for hyperlipidemia. He has a left carotid bruit. We will schedule him for a carotid duplex. We will also get a Lexiscan nuclear stress test and a transthoracic echocardiogram to follow up his CAD. Chest pain (R07.9: Chest pain, unspecified) Follow Up: Follow up in 4 to 6 weeks. ATTESTATION Portions of this record may have been created with voice recognition artificial intelligence software, specifically [employer], [employer] and or [employer]. Substitutions may have occurred due to the inherent limitations of voice recognition and artificial intelligence software. Documentation services were performed after patient or guardian consented to allow [employer] to record this visit. ION instructional technology specialist and provider reviewed before signing. ION: Marycruz Roa. Follow-up No qualifying data available Problem List/Past Medical History Ongoing CAD (coronary artery disease) Colon cancer screening Dizziness Finger injury GERD (gastroesophageal reflux disease) HTN (hypertension) Left inguinal hernia RA (rheumatoid arthritis) Historical No qualifying data Procedure/Surgical History Hip replacement (05/30/2020), Repair initial inguinal hernia, age 5 years or older; reducible (02/03/2019), Colonoscopy (09/29/2013), Placement of stent in cardiac conduit (08/25/2002), Repair of inguinal hernia (08/25/1979), Arthroscopy of knee. Medications aspirin (more content not included)... [facility] Comment on above: Result Comment: Elec tronically Signed By: Jose Eduardo ESPARZA, John Trimble\.br\Date and Time Signed: 07/10/23 14:58 EST\.br\Electronically Co-Signed By: Marycruz Roa\.br\Date and Time Co-Signed: 06/05/23 15:02 EDT Stress EKG Tracingson 2022 Stress EKG Tracings [id number] #1.00TIFF [facility] NM Myocardial Spect Rest/Str ess 1 Dayon 07-02-2023 NM Myocardial Spect Rest/Stress 1 Day Exam Date/Time: 06/25/2023 11:28 EDT Reason for Exam: I25.10;CAD Coronary artery disease Report PROCEDURE: Lexiscan nuclear stress test. INDICATIONS: Coronary artery disease. PROCEDURE DETAILS: The patient was stressed according to Lexiscan protocol without event. Baseline EKG was sinus bradycardia. There were no significant EKG changes with stress. The patient received 10.3 mCi of Cardiolite for rest images and 31.3 mCi of Cardiolite for stress images. Review of raw images demonstrated no significant motion or soft tissue attenuation. FINDINGS: Uptake of the tracer was homogeneous with no identifiable ischemia or infarction. The TID ratio was 1.02. The ejection fraction was 74%. End-diastolic volume was 82 mL. CONCLUSIONS: Negative Lexiscan nuclear stress test. Overall low risk stress. FINAL REPORT Signed (Electronic Signature): 07/02/2023 8:50 pm Signed by: Jose Eduardo ESPARZA, John Trimble Transcribed by: trudy Technologist: JEREMY Technical Comments Rest Dose (mCi Tc99m Cardiolite): 10.3 Stress Dose (mCi Tc99M Cardiolite): 31.3 [facility] US Carotid Duplex Bilateralo n 06-26-2023 US Carotid Duplex Bilateral Exam Date/Time: 06/25/2023 12:11 EDT Reason for Exam: I25.10;CAD Coronary artery disease Report IMPRESSION: NEGATIVE STUDY. NO EVIDENCE OF SIGNIFICANT STENOSIS. CLINICAL HISTORY: CAD Coronary artery disease, I25.10 COMPARISON: NONE. COMMENT: Minimal plaques are identified at the bilateral common carotid arteries and bilateral carotid bifurcations. There is antegrade blood flow in the right and left vertebral arteries in the neck. On Doppler images, the peak systolic velocity measurements in centimeters per second are as follows: Right proximal common carotid artery is 101.0 / 15.7, right distal common carotid artery is 83.9 / 16.5, right proximal internal carotid artery is 69.6 / 19.9, right mid internal carotid artery is 99.6 / 29.8, right distal internal carotid artery is 99.6 / 27.7, right external carotid artery is 70.2 cm/s, left proximal common carotid artery is 72.2 / 14.7, left distal common carotid artery is 70.1 / 15.4, left proximal internal carotid artery is 65.2 / 16.1, left mid internal carotid artery is 70.8 / 23.1, left distal internal carotid artery is 96.2 / 24.3, left external carotid artery is 74.3 cm/s. The peak systolic internal carotid to common carotid artery ratio on the right is 1.2 and on the left is 1.4. Optimization of duplex velocity criteria for diagnosis of internal carotid artery (ICA) stenosis: A report of the Inter societal Accreditation Commission (IAC) Vascular Testing Division Carotid Diagnostic Criteria Committee. Vascular Medicine 2020; https://journals.sag epub.com/doi/full/10 .1177/5719319Y872228 253 Ordering Provider: John Whitt FINAL REPORT Dictated: 06/26/2023 11:17 am Harpal Anderson M.D. Signed (Electronic Signature): 06/26/2023 11:17 am Signed by: Harpal Anderson M.D. Transcribed by: MARIAM Technologist: SAUL Technical Comments Velocities Right Vert. Antegrade Yes Velocities Left Vert. Antegrade Yes [facility] Consent for Treatmenton 11-0 Consent for Treatment [id number] #1.00TIFF [facility] Physician Referralon 023 Physician Referral [id number] #1.00TIFF [facility] Physician Orderon 06-06-2023 Physician Order [id number] #1.00TIFF [facility] Transfer Inon 05-21-2023 Transfer In [id number] #1.00CD:127 [facility] Auth for Release of Medical Recordson 05-19-2023 Auth for Release of Medical Records [id number] #1.00CD:127 [facility] Historical Records Officeon 05-15-2023 Historical Records Office [id number]#1.00CD:127 [facility] Lab Reportson 05-15-2023 Lab Reports [id number]# 1.00CD:127 [facility] Patient Logson 05-15-2023 Patient Logs [id number] #1.00CD:127 [facility] Physician Referralon 023 Physician Referral [id number] #1.00CD:127 [facility] Ambulatory Visit Summaryon 0 05-13-2023 Ambulatory Visit Summary DAVID MCKINNEY :1945 Visit Date:05/13/2023 Ambulatory Visit Instructions Your Diagnosis CAD (coronary artery disease) GERD (gastroesophageal reflux disease) HTN (hypertension) BMI 26.0-26.9,adult Overweight Your Care Team Attending Physician - Yohan Serra MD Primary Care Physician - Garima Arredondo This Is Your Medications List aspirin (aspirin 81 mg Oral EC Tab) losartan (losartan 100 mg Tab) metoprolol (metoprolol 25 mg ER Tab) pantoprazole (pantoprazole 40 mg Oral EC Tab) rosuvastatin (rosuvastatin 40 mg Tab) Procedures Performed Hip replacement (05/30/2020), Repair initial inguinal hernia, age 5 years or older; reducible (02/03/2019), Colonoscopy (09/29/2013), Placement of stent in cardiac conduit (08/25/2002), Repair of inguinal hernia (08/25/1979), Arthroscopy of knee. Discharge Vitals Temperature (Oral) 37.0 ?C Heart Rate (Peripheral) 64 Respiratory Rate 14 Blood Pressure 116/62 Height 158 cm Height 62 in Weight 65.7 kg Weight 144.54 lb BMI 26.32 What to do next Scheduled Follow-Up Appointments Friday 10:00 AM EDT With: Yohan Serra MD Where: [facility] Normal [address] [place] [phone]- \.br\ Medications\.br\ What How Much When Instructions\.br\ Unchanged aspirin (aspirin 81 mg Oral EC Tab) By Mouth Every day\.br\ Unchanged losartan (losartan 100 mg Tab) 1 Tablets By Mouth Every day\.br\ Unchanged metoprolol (metoprolol 25 mg ER Tab) 1 Tablets By Mouth 2 times a day\.br\ Unchanged pantoprazole (pantoprazole 40 mg Oral EC Tab) By Mouth Every day\.br\ Unchanged rosuvastatin (rosuvastatin 40 mg Tab) 1 Tablets By Mouth Every day\.br\ Allergies\.br\ No Known Medication Allergies\.br\ Problems\.br\ Ongoing - Any problem that you are currently receiving treatment for.\.br\ CAD (coronary artery disease)\.br\ Finger injury\.br\ GERD (gastroesophageal reflux disease)\.br\ HTN (hypertension)\.b r\ Left inguinal hernia\.br\ \.br\ [facility] Medicine Office/Clini c Noteon 05-13-2023 Family Medicine Office/Clinic Note HPI Staff Simone is a 77 year old male here to establish care Establish Care: History: Htn, Gerd, CAD Last provider: Sommer Any recent labs: 04/29 23 [place] has labs with him Health Maintenance UTD: Colonoscopy: close to 10 years ? due PSA: ?? covid: UTD flu: UTD Acute: Current issues/complaints: follow up dizziness and neck pain says it's easing up, just a little lightheadedness. questions/concerns: he ? 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 Review of Systems PHQ Score Initial Depression Screen Score: 0 Physical Exam Vitals & Measurements T: 37.0 ?C(Oral) HR: 64(Peripheral) RR: 14 BP: 116/62 SpO2: 99% HT: 62 in HT: 158 cm WT: 65.7 kg WT: 144.54 lb BMI: 26.32 General: alert, no acute distress ENMT: oral mucosa moist, Cardiovascular: regular rate and rhythm, normal peripheral perfusion Respiratory: Lungs CTA, respirations non labored Extremities: no deformity, no trauma Neurological: oriented x 4, LOC appropriate for age, CN II-XII intact, motor strength equal & normal bilaterally, speech normal Abdomen: Soft, Nontender, Non-distended, + BS Assessment/Plan 1. CAD (coronary artery disease) (I25.10: Atherosclerotic heart disease of [place] coronary artery without angina pectoris) - Wants to see Anthony - Will order Ordered: Body Mass Index (BMI) documented 3008F Current tobacco non-user 1036F Depression Screening Negative 3352F [facility] External Ambulatory Referral [facility] Internal Ambulatory Referral Influenza immunization administered or previously received 4274F Most recent diastolic blood pressure <80 mm Hg 3078F Patient screen for fall risk: no falls in last year or 1 fall with no injury in last year 1101F Systolic BP <130 mm Hg (Most Recent) 3074F 2. Dizziness (R42: Dizziness and giddiness) - Improving - Follow up with PT Ordered: [facility] External Ambulatory Referral [facility] Internal Ambulatory Referral 3. GERD (gastroesophageal reflux disease) (K21.9: Gastro-esophageal reflux disease without esophagitis) - Stable Ordered: Body Mass Index (BMI) documented 3008F Current tobacco non-user 1036F Depression Screening Negative 3352F [facility] [place] External Ambulatory Referral [facility] [place] [place] Internal Ambulatory Referral Influenza immunization administered or previously received 4274F Most recent diastolic blood pressure <80 mm Hg 3078F Patient screen for fall risk: no falls in last year or 1 fall with no injury in last year 1101F Systolic BP <130 mm Hg (Most Recent) 3074F 4. HTN (hypertension) (I10: Essential (primary) hypertension) - At goal today. - Will look to reduce meds if his BPs stay under 120 Ordered: Body Mass Index (BMI) documented 3008F Current tobacco non-user 1036F Depression Screening Negative 3352F [facility] [place] External Ambulatory Referral [facility] [place] Internal Ambulatory Referral Influenza immunization administered or previously received 4274F Most recent diastolic blood pressure <80 mm Hg 3078F Patient screen for fall risk: no falls in last year or 1 fall with no injury in last year 1101F Systolic BP <130 mm Hg (Most Recent) 3074F 5. BMI 26.0-26.9,adult (Z68.26: Body mass index [BMI] 26.0-26.9, adult) - BMI education given Ordered: Body Mass Index (BMI) documented 3008F Current tobacco non-user 1036F Depression Screening Negative 3352F [facility] External Ambulatory Referral [facility] Internal Ambulatory Referral Influenza immunization administered or previously received 4274F Most recent diastolic blood pressure <80 mm Hg 3078F Patient screen for fall risk: no falls in last year or 1 fall with no injury in last year 1101F Systolic BP <130 mm Hg (Most Recent) 3074F 6. Overweight (E66.3: Overweight) - Discussed weight loss. - Will monitor Ordered: Body Mass Index (BMI) documented 3008F Current tobacco non-user 1036F Depression Screening Negative 3352F Influenza immunization administered or previously received 4274F Most recent diastolic blood pressure <80 mm Hg 3078F Patient screen for fall risk: no falls in last year or 1 fall with no injury in last year 1101F Systolic BP <130 mm Hg (Most Recent) 3074F 7. Colon cancer screening (Z12.11: Encounter for screening for malignant neoplasm of colon) - Will send to GI for colonoscopy 8. RA (rheumatoid arthritis) (M06.9: Rheumatoid arthritis, unspecified) - Stable Follow-up No qualifying data available Problem List/Past Medical History Ongoing CAD (coronary artery disease) Colon cancer screening Dizziness Finger injury GERD (gastroesophageal reflux disease) HTN (hypertension) Left inguinal hernia RA (rheumatoid arthritis) Historical No qualifying data Procedure/Surgical History Hip replacement (05/30/2020), Repair initial inguinal hernia, age 5 years or older; reducible (02/03/2019), [place] (more content not included)... [facility] Comment on above: Result Comment: Elec tronically Signed By: Ponce ESPARZA, Yohan Rdz\.br\Date and Time Signed: 05/13/23 15:40 EDT Physician Orderon 05-07-2023 Physician Order [id number] #1.00CD:127 [facility] Ambulatory Visit Summaryon 0 05-05-2023 Ambulatory Visit Summary HANK DAVID Lula :1945 Visit Date:05/05/2023 Ambulatory Visit Instructions Your Diagnosis HTN (hypertension) CAD (coronary artery disease) BMI 26.0-26.9,adult Over weight Your Care Team Attending Physician - Yohan Serra MD Primary Care Physician - Garima Arredondo This Is Your Medications List losartan (losartan 100 mg Tab) Contact prescribing physician if questions or concerns aspirin (aspirin 81 mg Oral EC Tab) metoprolol (metoprolol 25 mg ER Tab) pantoprazole (pantoprazole 40 mg Oral EC Tab) rosuvastatin (rosuvastatin 40 mg Tab) [Image Removed: STOP]Stop taking these medications meloxicam (meloxicam 15 mg Tab) Procedures Performed Hip replacement (05/30/2020), Repair initial inguinal hernia, age 5 years or older; reducible (02/03/2019), Colonoscopy (09/29/2013), Placement of stent in cardiac conduit (08/25/2002), Repair of inguinal hernia (08/25/1979), Arthroscopy of knee. Discharge Vitals Temperature (Oral) 36.4 ?C Heart Rate (Peripheral) 52 Respiratory Rate 14 Blood Pressure 180/80 Height 62 in Height 158 cm Weight 143.22 lb Weight 65.1 kg BMI 26.08 What to do next Scheduled Follow-Up Appointments Friday 2:20 PM EDT With: Ponce ESPARZA, Yohan Rdz Where: [facility] [address], [place] [id number]- \.br\ Medications\.br\ What How Much When Instructions\.br\ New losartan (losartan 100 mg Tab) 1 Tablets By Mouth Every day Pickup at [facility]/pharmacy #[id number]\.br\ Unchanged aspirin (aspirin 81 mg Oral EC Tab) By Mouth Every day Contact prescribing physician if questions or concerns \.br\ Unchanged metoprolol (metoprolol 25 mg ER Tab) 1 Tablets By Mouth 2 times a day Contact prescribing physician if questions or concerns \.br\ Unchanged pantoprazole (pantoprazole 40 mg Oral EC Tab) By Mouth Every day Contact prescribing physician if questions or concerns \.br\ Unchanged rosuvastatin (rosuvastatin 40 mg Tab) 1 Tablets By Mouth Every day Contact prescribing physician if questions or concerns \.br\ Pharmacy Information\.br\ [facility]/pharmacy #[id number]: [address], [place] [phone]\.br\ \.br\ What How Much When Comments\.br\ Stop Taking meloxicam (meloxicam 15 mg Tab) 1 Tablets By Mouth Every day\.br\ Allergies\.br\ No Known Medication Allergies\.br\ Problems\.br\ Ongoing - Any problem that you are currently receiving treatment for.\.br\ CAD (coronary artery disease)\.br\ Finger injury\.br\ GERD (gastroesophageal reflux disease)\.br\ HTN (hypertension)\.b r\ Left inguinal hernia\.br\ \.br\ [facility] Family Medicine Office/Clini c Noteon 05-05-2023 Family Medicine Office/Clinic Note HPI Staff David is a 77 year old male presenting for elevated blood pressure any symptoms: lightheaded. dizzy feels funny in the face Checking at home: has one he doesn't feel it's reliable [facility] 192/70 and after sat awhile it came down but he wasn't told flu: 04/26/23 questions/concerns: He's worried about a stroke Review of Systems PHQ Score Initial Depression Screen Score: 0 Physical Exam Vitals & Measurements T: 36.4 ?C(Oral) HR: 52(Peripheral) RR: 14 BP: 180/80 SpO2: 99% HT: 62 in HT: 158 cm WT: 65.1 kg WT: 143.22 lb BMI: 26.08 Assessment/Plan 1. HTN (hypertension) (I10: Essential (primary) hypertension) - Not at goal. - Will add losartan - Pt to call [employer] to see if he needs a stress test given his cardiac hx - Want to try and increase the HR given the dizziness. - I am hoping to cut the BB down a little. But need to get the BP under control first. 2. CAD (coronary artery disease) (I25.10: Atherosclerotic heart disease of [place] coronary artery without angina pectoris) - Continue on ASA and statin 3. BMI 26.0-26.9,adult (Z68.26: Body mass index [BMI] 26.0-26.9, adult) - BMI education given Ordered: Body Mass Index (BMI) documented 3008F Current tobacco non-user 1036F Depression Screening Negative 3352F Influenza immunization administered or previously received 4274F Most recent diastolic blood pressure >=90 mm Hg 3080F Most recent systolic blood pressure >= 140 mm Hg 3077F Patient screen for fall risk: no falls in last year or 1 fall with no injury in last year 1101F 4. Over weight (E66.3: Overweight) - As above Ordered: Body Mass Index (BMI) documented 3008F Current tobacco non-user 1036F Depression Screening Negative 3352F Influenza immunization administered or previously received 4274F Most recent diastolic blood pressure >=90 mm Hg 3080F Most recent systolic blood pressure >= 140 mm Hg 3077F Patient screen for fall risk: no falls in last year or 1 fall with no injury in last year 1101F Orders: losartan, 100 mg = 1 tab(s), Oral, Daily, # 90 tab(s), Refills(s) 0, Pharmacy: [facility]/pharmacy #[id number], 158, cm, 05/05/23 10:49:00 EDT, Height/Length Dosing, 65.1, kg, 05/05/23 10:49:00 EDT, Weight Dosing Follow-up No qualifying data available Problem List/Past Medical History Ongoing CAD (coronary artery disease) Finger injury GERD (gastroesophageal reflux disease) HTN (hypertension) Left inguinal hernia Historical No qualifying data Procedure/Surgical History Hip replacement (05/30/2020), Repair initial inguinal hernia, age 5 years or older; reducible (02/03/2019), Colonoscopy (09/29/2013), Placement of stent in cardiac conduit (08/25/2002), Repair of inguinal hernia (08/25/1979), Arthroscopy of knee. Medications aspirin 81 mg Oral EC Tab, Oral, Daily losartan 100 mg Tab, 100 mg= 1 tab(s), Oral, Daily metoprolol 25 mg ER Tab, 25 mg= 1 tab(s), Oral, BID pantoprazole 40 mg Oral EC Tab, Oral, Daily rosuvastatin 40 mg Tab, 40 mg= 1 tab(s), Oral, Daily Allergies No Known Medication Allergies Social History Alcohol - Denies Alcohol Use, 02/17/2019 Current, Beer, Liquor, 1-2 times per month, 1 drinks/episode average. 2.00 drinks/episode maximum. Alcohol use interferes with work or home: No. Drinks more than intended: No. Others hurt by drinking: No. Ready to change: No. Household alcohol concerns: No., 04/15/2023 Substance Abuse - Denies Substance Abuse, 02/17/2019 Tobacco Never (less than 100 in lifetime) Tobacco Use:. Never Smokeless Tobacco Use:. Household tobacco concerns: No., 05/05/2023 Family History Cardiac arrest: Father. Immunizations Vaccine Date Status Comments influenza virus vaccine, inactivated 04/26/2023 Recorded influenza virus vaccine, inactivated 08/02/2022 Recorded SARS-CoV-2 (COVID-19) [id number] 08/02/2022 Recorded influenza virus vaccine, inactivated 08/28/2021 Recorded SARS-CoV-2 (COVID-19) mRNA BNT-162b2 vax 05/25/2021 Recorded 2023-03-24: TPV70 SARS-CoV-2 (COVID-19) mRNA BNT-162b2 vax 10/17/2020 Recorded 2023-03-24: TPV70 SARS-CoV-2 (COVID-19) mRNA BNT-162b2 vax 09/26/2020 Recorded 2023-03-24: TPV70 pneumococcal 13-valent vaccine 05/07/2020 Recorded influenza virus vaccine, inactivated 05/07/2020 Recorded influenza virus vaccine, inactivated 06/06/2019 Recorded [facility] Comment on above: Result Comment: Elec tronically Signed By: Ponce ESPARZA, Yohan Weeks\Date and Time Signed: 05/05/23 11:21 EDT Immunization Recordson 04-29 Immunization Records [id number] #1.00CD:127 [facility] Auth for Release of Medical Recordson 04-17-2023 Auth for Release of Medical Records [id number] #1.00CD:127 [facility] Ambulatory Visit Summaryon 0 04-15-2023 Ambulatory Visit Summary DAVID MCKINNEY :1945 Visit Date:04/15/2023 Ambulatory Visit Instructions Your Diagnosis Annual visit for general adult medical examination with abnormal findings CAD (coronary artery disease) GERD (gastroesophageal reflux disease) Elevated blood pressure reading Overweight with body mass index (BMI) of 26 to 26.9 in adult Your Care Team Attending Physician - Garima Arredondo Primary Care Physician - Garima Arredondo This Is Your Medications List aspirin (aspirin 81 mg Oral EC Tab) meloxicam (meloxicam 15 mg Tab) metoprolol (metoprolol 25 mg ER Tab) pantoprazole (pantoprazole 40 mg Oral EC Tab) rosuvastatin (rosuvastatin 40 mg Tab) Procedures Performed Hip replacement (05/30/2020), Repair initial inguinal hernia, age 5 years or older; reducible (02/03/2019), Colonoscopy (09/29/2013), Placement of stent in cardiac conduit (08/25/2002), Repair of inguinal hernia (08/25/1979), Arthroscopy of knee. Discharge Vitals Heart Rate (Peripheral) 58 Blood Pressure 148/70 Height 158 cm Height 62 in Weight 67 kg Weight 147.4 lb BMI 26.84 What to do next Scheduled Follow-Up Appointments Friday 2:20 PM EDT With: Ponce ESPARZA, Yohan Rdz Where: [facility] [address] [id number]- \.br\ Medications\.br\ What How Much When Instructions\.br\ Unchanged aspirin (aspirin 81 mg Oral EC Tab) By Mouth Every day\.br\ Unchanged meloxicam (meloxicam 15 mg Tab) 1 Tablets By Mouth Every day\.br\ Unchanged metoprolol (metoprolol 25 mg ER Tab) 1 Tablets By Mouth 2 times a day\.br\ Unchanged pantoprazole (pantoprazole 40 mg Oral EC Tab) By Mouth Every day\.br\ Unchanged rosuvastatin (rosuvastatin 40 mg Tab) 1 Tablets By Mouth Every day\.br\ Allergies\.br\ No Known Medication Allergies\.br\ Problems\.br\ Ongoing - Any problem that you are currently receiving treatment for.\.br\ CAD (coronary artery disease)\.br\ Finger injury\.br\ GERD (gastroesophageal reflux disease)\.br\ Left inguinal hernia\.br\ Education Materials\.br\ Fall Prevention in the Home, Adult\.br\ Falls can cause injuries and affect people of all ages. There are many simple things that you can do to make your home safe and to help prevent falls. Ask for help when making these changes, if needed.\.br\ What actions can I take to prevent falls?\.br\ General instructions\.br\ ? \.br\ Use good lighting in all rooms. Replace any light bulbs that burn out, turn on lights if it is dark, and use night-lights.\.br \ ? \.br\ Place frequently used items in [id number]-ml-nzoox places. Lower the shelves around your home if necessary.\.br\ ? \.br\ Set up furniture so that there are clear paths around it. Avoid moving your furniture around.\.br\ ? \.br\ Remove throw rugs and other tripping hazards from the floor.\.br\ ? \.br\ Avoid walking on wet floors.\.br\ ? \.br\ Fix any uneven floor surfaces.\.br\ ? \.br\ Add color or contrast paint or tape to grab bars and handrails in your home. Place contrasting color strips on the first and last steps of staircases.\.br\ ? \.br\ When you use a stepladder, make sure that it is completely opened and that the sides and supports are firmly locked. Have someone hold the ladder while you are using it. Do not climb a closed stepladder.\.br\ ? \.br\ Know where your pets are when moving through your home.\.br\ What can I do in the bathroom?\.br\ \.br\ \.br\ ? \.br\ Keep the floor dry. Immediately clean up any water that is on the floor.\.br\ ? \.br\ Remove soap buildup in the tub or shower regularly.\.br\ ? \.br\ Use nonskid mats or decals on the floor of the tub or shower.\.br\ ? \.br\ Attach bath mats securely with double-sided, nonslip rug tape.\.br\ ? \.br\ If you need to sit down while you are in the shower, use a plastic, nonslip stool.\.br\ ? \.br\ Install grab bars by the toilet and in the tub and shower. Do not use towel bars as grab bars.\.br\ What can I do in the bedroom?\.br\ ? \.br\ Make sure that a bedside light is easy to reach.\.br\ ? \.br\ Do not use oversized bedding that reaches the floor.\.br\ ? \.br\ Have a firm chair that has side arms to use for getting dressed.\.br\ What can I do in the kitchen?\.br\ ? \.br\ Clean up any spills right away.\.br\ ? \.br\ If you need to reach for something above you, use a sturdy step stool that has a grab bar.\.br\ ? \.br\ Keep electrical cables out of the way.\.br\ ? \.br\ Do not use floor bengali or wax that makes floors slippery. If you must use wax, make sure that it is non-skid floor wax.\.br\ What can I do with my stairs?\.br\ ? \.br\ Do not leave any items on the stairs.\.br\ ? \.br\ Make sure that you have a light switch at the top and the bottom of the stairs. Have them installed if you do not have them.\.br\ ? \.br\ Make sure that there are handrails on both sides of the stairs. Fix handrails that are broken or loose. Make sure that handrails are as long as the staircases.\.br\ ? \.br\ Install non-slip stair treads on all stairs in your home.\.br\ ? \.br\ Avoid having throw rugs at the top or bottom of stairs, or secure the rugs with carpet tape to prevent them from moving.\.br\ ? \.br\ Choose a carpet design that does not hide the edge of steps on the stairs.\.br\ ? \.br\ Check any carpeting to make sure that it is firmly attached to the stairs. Fix any carpet that is loose or worn.\.br\ What can I do on the outside of my home?\.br\ ? \.br\ Use bright outdoor lighting.\.br\ ? \.br\ Regularly repair the edges of walkways and driveways and fix any cracks.\.br\ ? \.br\ Remove high doorway thresholds.\.br\ ? \.br\ Trim any shrubbery on the main path into your home.\.br\ ? \.br\ Regularly check that handrails are securely fastened and in good repair. Both sides of all steps should have handrails.\.br\ ? \.br\ Install guardrails along the edges of any raised decks or porches.\.br\ ? \.br\ Clear walkways of debris and clutter, including tools and rocks.\.br\ ? \.br\ Have leaves, snow, and ice cleared regularly.\.br\ ? \.br\ Use sand or salt on walkways during winter months.\.br\ ? \.br\ In the garage, clean up any spills right away, including grease or oil spills.\.br\ What other actions can I take?\.br\ ? \.br\ Wear closed-toe shoes that fit well and support your feet. Wear shoes that have rubber soles or low heels.\.br\ ? \.br\ Use mobility aids as needed, such as canes, walkers, scooters, and crutches.\.br\ ? \.br\ Review your medicines with your health care provider. Some medicines can cause dizziness or changes in blood pressure, which increase your risk of falling.\.br\ Talk with your health care provider about other ways that you can decrease your risk of falls. This may include working with a physical therapist or link trainer operator to improve your strength, balance, and endurance.\.br\ Where to find more information\.br\ ? \.br\ Centers for Disease Control and Prevention, STEADI: www.cdc.gov\.br\ ? \.br\ National [place] on Aging: www.maldonado.nih.gov\. br\ Contact a health care provider if:\.br\ ? \.br\ You are afraid of falling at home.\.br\ ? \.br\ You feel weak, drowsy, or dizzy at home.\.br\ ? \.br\ You fall at home.\.br\ Summary\.br\ ? \.br\ There are many simple things that you can do to make your home safe and to help prevent falls.\.br\ ? \.br\ Ways to make your home safe include removing tripping hazards and installing grab bars in the bathroom.\.br\ ? \.br\ Ask for help when making these changes in your home.\.br\ This information is not intended to replace advice given to you by your health care provider. Make sure you discuss any questions you have with your health care provider.\.br\ Document Revised: 05/13/2022 Document Reviewed: 03/14/2021 [employer] Patient Education ? 2022 [employer].br\ DASH Eating Plan\.br\ DASH stands for Dietary Approaches to Stop Hypertension. The DASH eating plan is a healthy eating plan that has been shown to:\.br\ ? \.br\ Reduce high blood pressure (hypertension).\. br\ ? \.br\ Reduce your risk for type 2 diabetes, heart disease, and stroke.\.br\ ? \.br\ Help with weight loss.\.br\ What are tips for following this plan?\.br\ Reading food labels\.br\ ? \.br\ Check food labels for the amount of salt (sodium) per serving. Choose foods with less than 5 percent of the Daily Value of sodium. Generally, foods with less than 300 milligrams (mg) of sodium per serving fit into this eating plan.\.br\ ? \.br\ To find whole grains, look for the word whole as the first word in the ingr [facility] Auth for Release of Medical Recordson 04-15-2023 Auth for Release of Medical Records [id number] #1.00CD:127 [facility] Family Medicine Office/Clini c Noteon 04-15-2023 Family Medicine Office/Clinic Note Chief Complaint Subsequent Medicare Wellness Visit Review of Systems PHQ Score Initial Depression Screen Score: 0 Physical Exam Vitals & Measurements HR: 58(Peripheral) BP: 148/70 SpO2: 98% HT: 158 cm HT: 62 in WT: 67 kg WT: 147.4 lb BMI: 26.84 Assessment/Plan 1. Annual visit for general adult medical examination with abnormal findings (Z00.01: Encounter for general adult medical examination with abnormal findings) The patient was given a customized and personalized print out of all the current AHRQ USPSTF?s recommendations for preventative services and all current CDC recommended immunizations, relevant risk recommendations and the following patient brochures were given. Reviewed Medicare preventative services checklist. CDC-Falls Prevention and home safety screening reviewed. Patient denies any falls in last 12 months, voices no worry about falling, exhibits no problems with sitting, standing, or ambulation. Pt voices understanding with keeping walk way area free of clutter to prevent tripping and/or falling. [place] Advance Directives reviewed, patient has on file at [facility], patient request that office obtain from [facility]. Patient denies any problems with ADL?s and Instrumental ADL?s. Cognitive screening completed with memory and clock face drawing, no deficits noted. Immunization Record reviewed with the patient. Discussed Shingrix vaccine with educational handout and availability. COVID vaccines have been administered, with 2 boosters, immunization record is up to date. Allergies and medications reviewed and up to date. Patient denies concerns with taking medication as prescribed, reviewed OTC medications with patient, medication list up to date. Blood tests were reviewed: patient completes labs at the [place], will have Apr. results sent to office. Colonoscopy up to date, last completed 2013, no longer screens. Reviewed pain symptoms with patient: patient denies any symptoms pr concerns with pain. Reviewed all outside providers that patient follows. Last visit summary notes available in chart and/or have been requested. Follow up scheduled, 04/25/2023. AWV has been scheduled, 04/19/2024. Abnormal findings with elevated BP, serial assessment completed and documented. Medicare provides yearly screening for alcohol and depression concerns. This is completed during our Medicare Wellness visit for those who do not have a current diagnosis of depression or concerns with alcohol use. I spent a total of 17 minutes on this date of service which included preparing to see the patient, face to face patient care, completing clinical documentation, obtaining and/or reviewing separately obtained history, counseling and educating the patient with handouts. Explanations were provided with reviewing questionnaires. AUDIT risk assessment screening completed, risk score 2, with patient denying concerns with use. Completed PHQ-2 risk assessment for depression with risk score 0, negative findings. Patient has been reminded to notify the provider if there would be a change or concerns with symptoms with fear, unable to sleep, worrying too much or feeling down and/or sad with lost of interest with daily activities. Will continue to monitor with screening yearly during Medicare wellness visits. 2. CAD (coronary artery disease) (I25.10: Atherosclerotic heart disease of [place] coronary artery without angina pectoris) Patient no longer follows with supervisor carbon electrodes. Patient denies any symptoms or concerns of CP, SOB, or chest tightness. Taking rosuvastatin and asa daily as directed. Reviewed Cardiac nutritional recommendations with handout provided. Patient voices understanding with signs and symptoms to monitor for and report to provider. 3. GERD (gastroesophageal reflux disease) (K21.9: Gastro-esophageal reflux disease without esophagitis) Patient is aware of diet changes with healthier eating habits, such as not eating late at night, losing or maintaining a healthy weight. Importance of not smoking and avoiding and/or reducing alcohol intake. Avoid tight clothing around the waist line and try to avoid spicy or high acid foods. Patient taking Protonix as directed with symptoms managed. Reviewed nutrition therapy with recommended foods to help control your symptoms. Patient will continue to follow up with PCP as needed. 4. Elevated blood pressure reading (R03.0: Elevated blood-pressure reading, without diagnosis of hypertension) Patient is taking metoprolol daily as directed. HTN stoplight reviewed with BP goal to be <140/90. Reviewed different factors that can alter blood pressure readings. Education handout provided with s/s to monitor for and report to provider. Patient is encouraged to increase portions of fruit, vegetables, fiber and increase exercise as much as tolerable. Reviewed importance with monitoring foods high in salt content and encouraged to limit intake, if unsure encouraged to discuss with their PCP. Encouraged to eat more chicken, fish and lean whit (more content not included)... [facility] Comment on above: Result Comment: Elec tronically Signed By: Garima Arredondo\.br\Date and Time Signed: 04/15/23 12:21 EDT\.br\Electronically Co-Signed By: Donny Long\.br\Date and Time Co-Signed: 04/15/23 11:15 EDT\.br\Electronically Co-Signed By: Donny Long\.br\Date and Time Co-Signed: 04/15/23 11:16 EDT Patient Educationon 04-15-20 23 Patient Education Caregiving Fall Prevention in the Home, Adult Falls can cause injuries and affect people of all ages. There are many simple things that you can do to make your home safe and to help prevent falls. Ask for help when making these changes, if needed. What actions can I take to prevent falls? General instructions ? Use good lighting in all rooms. Replace any light bulbs that burn out, turn on lights if it is dark, and use night-lights. ? Place frequently used items in gwsy-js-kwvto places. Lower the shelves around your home if necessary. ? Set up furniture so that there are clear paths around it. Avoid moving your furniture around. ? Remove throw rugs and other tripping hazards from the floor. ? Avoid walking on wet floors. ? Fix any uneven floor surfaces. ? Add color or contrast paint or tape to grab bars and handrails in your home. Place contrasting color strips on the first and last steps of staircases. ? When you use a stepladder, make sure that it is completely opened and that the sides and supports are firmly locked. Have someone hold the ladder while you are using it. Do not climb a closed stepladder. ? Know where your pets are when moving through your home. What can I do in the bathroom? ? Keep the floor dry. Immediately clean up any water that is on the floor. ? Remove soap buildup in the tub or shower regularly. ? Use nonskid mats or decals on the floor of the tub or shower. ? Attach bath mats securely with double-sided, nonslip rug tape. ? If you need to sit down while you are in the shower, use a plastic, nonslip stool. ? Install grab bars by the toilet and in the tub and shower. Do not use towel bars as grab bars. What can I do in the bedroom? ? Make sure that a bedside light is easy to reach. ? Do not use oversized bedding that reaches the floor. ? Have a firm chair that has side arms to use for getting dressed. What can I do in the kitchen? ? Clean up any spills right away. ? If you need to reach for something above you, use a sturdy step stool that has a grab bar. ? Keep electrical cables out of the way. ? Do not use floor bengali or wax that makes floors slippery. If you must use wax, make sure that it is non-skid floor wax. What can I do with my stairs? ? Do not leave any items on the stairs. ? Make sure that you have a light switch at the top and the bottom of the stairs. Have them installed if you do not have them. ? Make sure that there are handrails on both sides of the stairs. Fix handrails that are broken or loose. Make sure that handrails are as long as the staircases. ? Install non-slip stair treads on all stairs in your home. ? Avoid having throw rugs at the top or bottom of stairs, or secure the rugs with carpet tape to prevent them from moving. ? Choose a carpet design that does not hide the edge of steps on the stairs. ? Check any carpeting to make sure that it is firmly attached to the stairs. Fix any carpet that is loose or worn. What can I do on the outside of my home? ? Use bright outdoor lighting. ? Regularly repair the edges of walkways and driveways and fix any cracks. ? Remove high doorway thresholds. ? Trim any shrubbery on the main path into your home. ? Regularly check that handrails are securely fastened and in good repair. Both sides of all steps should have handrails. ? Install guardrails along the edges of any raised decks or porches. ? Clear walkways of debris and clutter, including tools and rocks. ? Have leaves, snow, and ice cleared regularly. ? Use sand or salt on walkways during winter months. ? In the garage, clean up any spills right away, including grease or oil spills. What other actions can I take? ? Wear closed-toe shoes that fit well and support your feet. Wear shoes that have rubber soles or low heels. ? Use mobility aids as needed, such as canes, walkers, scooters, and crutches. ? Review your medicines with your health care provider. Some medicines can cause dizziness or changes in blood pressure, which increase your risk of falling. Talk with your health care provider about other ways that you can decrease your risk of falls. This may include working with a physical therapist or link trainer operator to improve your strength, balance, and endurance. Where to find more information ? Centers for Disease Control and Prevention, [place]: www.cdc.gov ? National [place] on Aging: www.[place].nih.gov Contact a health care provider if: ? You are afraid of falling at home. ? You feel weak, drowsy, or dizzy at home. ? You fall at home. Summary ? There are many simple things that you can do to make your home safe and to help prevent falls. ? Ways to make your home safe include removing tripping hazards and installing grab bars in the bathroom. ? Ask for help when making these changes in your home. This information is not intended to replace advice given to you by your health ca (more content not included)... [facility] Screenson 04-15-2023 Screens [id number] #[id number] [facility] Covid-19 PCR (CVDTB)on 08-25 SARS-CoV-2 (COVID-19) RNA CUONG+probe Ql (Unsp spec) Detected Critically abnormal NOT DETECTED [facility] Comment on above: Result Comment: This test is not yet approved or cleared by the [place] FDA. When there are no FDA-approved or cleared tests available, and other criteria are met, FDA can make tests available under an emergency access mechanism called an Emergency Use Authorization (EUA). The EUA for this test is supported by the [employer] [place] [facility] of Health and Human Service's (HHS's) declaration that circumstances exist to justify the emergency use of in vitro diagnostics for the detection and/or diagnosis of the virus that causes COVID-19. This EUA will remain in effect (meaning this test can be used) for the duration of the COVID-19 declaration justifying emergency of IVDs, unless it is terminated or revoked by FDA (after which the test may no longer be used). Performed By: #### [facility] #### [facility] [address] [place] [address] Dr. Romeo Mcfadden Covid-19 PCR (CVDTB)on 08-26 EUA Statement SEE BELOW Normal [facility] Comment on above: Result Comment: This test is not yet approved or cleared by the [place] FDA. When there are no FDA-approved or cleared tests available, and other criteria are met, FDA can make tests available under an emergency access mechanism called an Emergency Use Authorization (EUA). The EUA for this test is supported by the [place] of Health and Human Service?s (HHS?s) declaration that circumstances exist to justify the emergency use of in vitro diagnostics for the detection and/or diagnosis of the virus that causes COVID-19. This EUA will remain in effect (meaning this test can be used) for the duration of the COVID-19 declaration justifying emergency of IVDs, unless it is terminated or revoked by FDA (after which the test may no longer be used). When diagnostic testing is negative, the possibility of a false negative should be considered in the context of a patients recent exposures and the presence of clinical signs and symptoms consistent with SARS-CoV-2. Performed By: #### C V[facility] #### [facility] [address] [place] [id number] Chaparrita Drummond SARS-CoV-2 (COVID-19) RNA CUONG+probe Ql (Unsp spec) Not detected Normal NOT DETECTED [facility] Comment on above: Result Comment: This test is not yet approved or cleared by the [place] FDA. When there are no FDA-approved or cleared tests available, and other criteria are met, FDA can make tests available under an emergency access mechanism called an Emergency Use Authorization (EUA). The EUA for this test is supported by the [place] of Health and Human Service's (HHS's) declaration that circumstances exist to justify the emergency use of in vitro diagnostics for the detection and/or diagnosis of the virus that causes COVID-19. This EUA will remain in effect (meaning this test can be used) for the duration of the COVID-19 declaration justifying emergency of IVDs, unless it is terminated or revoked by FDA (after which the test may no longer be used). Performed By: #### C VDTB #### [facility] [address] [place] [id number] Chaparrita Drummond Vital Signs Date Time Vital Sign Value Performing Clinician Macy patterson 07-10-2023 14:21-0500 Diastolic blood pressure 68 mm[Hg] John Whitt [facility] 07-10-2023 14:21-0500 Heart rate 63 /min John Whitt [facility] 07-10-2023 14:21-0500 SaO2% (BldA) [Mass fraction] 96 % John Whitt [facility] 07-10-2023 14:21-0500 Systolic blood pressure 138 mm[Hg] John Whitt [facility] 06-05-2023 12:51-0400 Diastolic blood pressure 78 mm[Hg] John Whitt [facility] 06-05-2023 12:51-0400 Heart rate 51 /min John Childersgena [facility] 06-05-2023 12:51-0400 SaO2% (BldA) [Mass fraction] 96 % John Jose Eduardo [facility] 06-05-2023 12:51-0400 Systolic blood pressure 140 mm[Hg] John Whitt [facility] Encounters Encounter Date Encounter Type Care Provider Facility Start: 02-02-2024 End: 02-02-2024 ambulatory Garima Garcia Facility:[facility] Start: 12-23-2023 End: 12-23-2023 ambulatory Yohan Serra Facility:[facility] Start: 11-10-2023 End: 11-10-2023 ambulatory Y[facility] Serar [facility] Start: 07-10-2023 End: 07-10-2023 ambulatory John Whitt Facility:[facility] Start: 07-10-2023 End: 07-10-2023 Patient encounter procedure John Whitt [facility] Start: 06-25-2023 End: 06-25-2023 ambulatory John Whitt Facility:[facility] Start: 06-25-2023 End: 06-25-2023 Patient encounter procedure John Whitt [facility] Start: 06-05-2023 End: 06-05-2023 ambulatory Yohan Serra Facility:[facility] Start: 06-05-2023 End: 06-05-2023 Patient encounter procedure John Whitt [facility] Start: 05-15-2023 ambulatory Yohan Serra [facility] Start: 05-13-2023 End: 05-13-2023 ambulatory Yohan Serra Facility:[facility] Start: 05-05-2023 ambulatory Garima Garcia Facility: [facility] Start: 05-05-2023 End: 05-05-2023 ambulatory Yohan Serra Facility:[facility] [place] Start: 04-15-2023 End: 04-15-2023 ambulatory Garima Bateman [facility] Facility:[facility] [place] Start: 09-04-2021 End: 09-04-[address] [facility] [place] Facility:[facility] Start: 09-13-2020 End: 09-13-[address] [facility] [place] Facility:[facility] Procedures Date Procedure Procedure Detail Performing Clinician Start: 05-30-2020 Insertion of hip prosthesis John Whitt Start: 02-03-2019 Rpr 1st ingun hrna a ge 5 yrs/> reducible John Whitt Comment on above: LEFT Start: 09-29-2013 Colonoscopy John celis Comment on above: EGD Start: 08-25-2002 Placement of stent i n cardiac conduit John Whitt Comment on above: X 4 Start: 08-25-1979 Repair of inguinal hernia John Whitt Comment on above: RIGHT Arthroscopy of knee John moses Comment on above: RIGHT Plan of Treatment Date Care Activity Detail Author Start: 06-22-2024 ambulatory Ambulatory Facility:[facility] Start: 05-10-2024 ambulatory Ambulatory Facility:[facility] [place] Start: 04-19-2024 ambulatory Ambulatory Facility:[facility] Immunizations Immunization Date Immunization Notes Care Provider Fa cilimagali 04-26-2023 influenza virus vaccine, unspecified formulation John Whitt [facility] 08-02-2022 influenza virus vaccine, unspecified formulation [facility]-2022 SARS-CoV-2 (COVID-19 ) [id number] John [facility] 08-28-2021 influenza virus vaccine, unspecified formulation John [facility] 05-25-2021 SARS-CoV-2 (COVID-19 ) mRNA BNT-162b2 vax John Whitt [facility] Comment on above: Result Comment: 2022: [id number] 10-17-2020 SARS-CoV-2 (COVID-19 ) mRNA BNT-162b2 vax John Whitt [facility] Comment on above: Result Comment: 2022: [id number] 09-26-2020 SARS-CoV-2 (COVID-19 ) mRNA BNT-162b2 vax John Whitt [facility] Comment on above: Result Comment: 2022: [id number] 05-07-2020 influenza virus vaccine, unspecified formulation John Jose Eduardo [facility] 05-07-2020 pneumococcal conjugate vaccine, 13 valent John Whitt [facility] 06-06-2019 influenza virus vaccine, unspecified formulation John Jose Eduardo [facility] Payers Date Payer Category Payer Medicare [id number] 1958 Unknown [id number] 1945 Unknown [id number] 2.16.84 [id number] 1945 Unknown [id number] 2.16.84 [id number] 1945 Unknown [id number] 2.16.8 [id number] 1945 Unknown [id number] 2.16.8 [id number] 1945 Unknown [id number] 2.16.8 40.1.013560.3.579.2.727 1945 Unknown [id number] 2.16.8 40.1.398440.3.579.2.727 1945 Unknown [id number] 2.16.8 40.1.935284.3.579.2.727 1945 Unknown [id number] 2.16.8 40.1.914446.3.579.2.727 1945 Unknown [id number] 2.16.8 40.1.580298.3.579.2.727 1945 Unknown [id number] 2.16.8 40.1.360997.3.579.2.727 1945 Unknown [id number] 2.16.8 40.1.544476.3.579.2.727 1945 Unknown [id number] 2.16.8 40.1.309211.3.579.2.727 1945 Unknown [id number] 2.16.8 40.1.798463.3.579.2.727 1945 Unknown [id number] 2.16.8 40.1.697034.3.579.2.727 1945 Unknown [id number] 2.16.8 [id number] Social History Date Type Detail Facility Start: 06-05-2023 Tobacco smoking status Never s moked tobacco (finding) [facility] Tobacco smoking status Never [facility] Sex Assigned At Male [facility] Functional Status Date Assessment Result Facility 07-10-2023 Functional Status No [facility] 06-05-2023 Functional Status No [facility] Clinical Note 06-25-2023 Note Date & Type Note Facility 06-25-2023 Note Echocardiology Procedure Exam Date/Time Accession # Ordering Dr. Fortune Transthoracic 06/25/2023 08:39 EDT [id number] John Whitt MD CPT code 93081 [id number] Reason for Exam (Echo Transthoracic Complete) I25.10;CAD Coronary artery disease Report [facility] [address] [place] [address] Adult Echocardiogram Report Name: DAVID MCKINNEY Study Date: 06/25/2023 07:55 AM BP: 151/70 mmHg Patient Location: [facility] HR: 50 : 1945 Gender: Male Height: 63 in Age: 77 yrs Ethnicity: [facility] Weight: 144 lb Reason For Study: CAD Coronary artery disease BSA: 1.7 m2 History: HTN,Stents Ordering Physician: Jose Eduardo^John^Nai Referring Physician: John Whitt Performed By: Brigette Carver, RDMS, RVT Interpretation Summary Ejection Fraction = 60-65%. Normal LV and RV. No significant valve disease. Dilated LA. Pseudonormal diastolic function. Normal estimated PA pressure. Procedure A complete two-dimensional transthoracic echocardiogram was performed (2D, M-mode, spectral and color flow Doppler). Study quality is good. Left Ventricle The left ventricle is normal in size. There is normal left ventricular wall thickness. Ejection Fraction = 60-65%. The left ventricular wall motion is normal. Diastolic dysfunction, Grade II (pseudonormalization pattern). Left Atrium The left atrium is moderate to severely dilated. Right Atrium Right atrial size is normal. Echocardiology Report Right Ventricle The right ventricular systolic function is normal. The right ventricle is normal size. The right ventricular wall motion is normal. Aortic Valve The aortic valve is trileaflet. No aortic regurgitation. There is no aortic stenosis. Mitral Valve The mitral valve is normal in structure and function. There is no mitral regurgitation noted. No mitral valve stenosis. Tricuspid Valve Structurally normal tricuspid valve. No evidence of tricuspid regurgitation. Pulmonic Valve No evidence of stenosis. There is no pulmonic valve regurgitation. Arteries The aortic root is normal in size. Normal ascending aorta. Pulmonary artery diameter is normal. Venous The inferior vena cava is normal in size, and collapses normally with respiration. Effusion There is no pericardial effusion. MMode/2D Measurements & Calculations RVDd: 3.8 cm LVIDd: 4.7 cm FS: 36.6 % Ao root diam: 3.4 cm IVSd: 1.1 cm LVIDs: 3.0 cm EDV(Teich): 101.3 ml Ao root area: 8.9 cm2 LVPWd: 0.98 cm ESV(Teich): 34.0 ml LA dimension: 5.3 cm EF(Teich): 66.4 % asc Aorta Diam: 2.9 cm LVOT diam: 2.0 cm LVLd ap4: 7.5 cm EDV(MOD-sp2): 53.5 ml LVOT area: 3.2 cm2 EDV(MOD-sp4): 89.4 ml ESV(MOD-sp2): 22.3 ml LVLs ap4: 6.6 cm EF(MOD-sp2): 58.3 % ESV(MOD-sp4): 36.4 ml EF(MOD-sp4): 59.3 % SV(MOD-sp4): 53.0 ml TAPSE: 2.5 cm IVC Diam: 1.7 cm RVIDd/LVIDd: 0.82 EF (MOD-bp): 59.2 % Doppler Measurements & Calculations MV E max tommie: 76.0 cm/sec MV dec time: 0.26 sec Ao V2 max: 116.0 cm/sec LV V1 max P.2 mmHg MV A max tommie: 41.0 cm/sec Ao max P.4 mmHg LV V1 mean P.0 mmHg MV E/A: 1.9 Ao V2 mean: 77.6 cm/sec LV V1 max: 102.0 cm/sec Echocardiology Report Lat Peak E' Tommie: 11.3 cm/sec Ao mean P.0 mmHg LV V1 mean: 61.2 cm/sec E/E' Lat: 6.7 Ao V2 VTI: 31.1 cm LV V1 VTI: 24.5 cm Med Peak E' Tommie: 7.0 cm/sec KVNG(I,D): 2.5 cm2 E/E' Med: 10.9 KVNG(V,D): 2.8 cm2 SV(LVOT): 78.3 ml TR max tommie: 186.2 cm/sec RAP systole: 3.0 mmHg AV VR: 0.88 TR max P.9 mmHg KVNG(VTI)/BSA_phl: 1.5 RVSP(TR): 16.9 mmHg FINAL REPORT Dictated: 06/25/2023 7:55 am John Whitt MD Signed (Electronic Signature): 06/25/2023 9:38 am Signed by: John Whitt MD Transcribed by: [facility] Technologist: [facility] Evaluation + Plan note Radiology Note Date & Type Note Facility Evaluation + Plan note Future Appointments Appointment Date:07/10/2023 02:15:00 PM Scheduled Provider:[facility] Whitt [facility] Appointment Type:Cardiology Follow Up (FT) Appointment Date:11/10/2023 10:00:00 AM Scheduled Provider:Yohan Serra MD Location:[facility] Appointment Type:FM Open Appointment Date:04/19/2024 08:00:00 AM Scheduled Provider: Location:[facility] Appointment Type:FM Medicare Wellness Subsequent Future Scheduled TestsNM Myocardial Spect Rest/Stress 1 Day 06/05/23Echo Transthoracic Complete 06/05/23US Carotid Duplex Bilateral 06/05/23 [facility] Evaluation + Plan note Note Date & Type Note Facility Evaluation + Plan note Future Appointments Appointment Date:07/10/2023 02:15:00 PM Scheduled Provider:John Whitt MD [facility] Appointment Type:Cardiology Follow Up (FT) Appointment Date:11/10/2023 10:00:00 AM Scheduled Provider:Yohan Serra MD [facility] Appoint[facility] Type:FM Open Appointment Date:04/19/2024 08:00:00 AM Scheduled Provider: Location:[facility] Appointment Type:FM Medicare Wellness Subsequent [facility] Evaluation + Plan note Note Date & Type Note Facility Evaluation + Plan note Future Appointments Appointment Date:11/10/2023 10:00:00 AM Scheduled Provider:Yohan Serra MD [facility] Appointment Type:FM Open Appointment Date:04/19/2024 08:00:00 AM Scheduled Provider: Location:[facility] Appointment Type:FM Medicare Wellness Subsequent [facility] Hospital course Narrative Note Date & Type Note Facility Hospital course Narrative No data available for this section [facility] Hospital Discharge instructions Note Date & Type Note Facility Hospital Discharge instructions No data available for this section [facility] Progress note Note Date & Type Note Facility Progress note No data available for this section [facility] Summary Purpose Family History No Family History Records Found No data available for this section No data available for this section No data available for this section No Family History Records Found Advance Directives No Advanced Directives Records FoundNo Advanced Directives Records Found Additional Source Comments (unrecognized sect ion and content) No Status Records FoundNo Status Records Found INFORMATION SOURCE (unrecogn ized section and content) DATE CREATED AUTHOR 09/07/2021 [facility] DATE CREATED AUTHOR AUTHOR'S ORGANIZ ATION 03/26/2024 [facility] [facility] Patient Care team informatio n (unrecognized section and content) Personnel Name: RadhaGarima Herrera Address: Address: [address] [place] [address]- Personnel Name: Radhaab LYNCH Garima Bateman Address: Address: [address] [place] [address]- Personnel Name: Radhaab LYNCH Garima Bateman Address: Address: [address] [place] [address]- FOR RECORDS PERTAINING TO PATIENTS WHO ARE OR HAVE BEEN ENROLLED IN A CHEMICAL DEPENDENCY/SUBSTANCEABUSE PROGRAM, SOME INFORMATION MAY BE OMITTED. This clinical summary was aggregated from multiple sources. Caution should be exercised in using it in the provision of clinical care. This summary normalizes information from multiple sources, and as a consequence, information in this document may materially change the coding, format and clinical context of patient data. In addition, data may be omitted in some cases. CLINICAL DECISIONS SHOULD BE BASED ON THE PRIMARY CLINICAL RECORDS. [facility]. provides no warranty or guarantee of the accuracy or completeness of information in this document.
--- NOTE | 2024-03-27 15:30 | CT_ITS ---
The [address] [address] Patient Name: DAVID MCKINNEY MRN: [id number] date: 1945 Sex: M Assigned Patient Location: ED.MAIN Current Patient Location: Accession/Order Number: [id number] Exam Date: 03/27/2024 15:40 Report Date: 03/27/2024 16:41 At the request of: BENJAMIN MCGOVERN Procedure: CT abdomen pelvis wo con EXAMINATION: CT abdomen pelvis wo con HISTORY: left flank pain, r/o stone COMPARISON: No relevant comparison available. TECHNIQUE: Axial, Coronal, and Sagittal images were obtained without and/or with IV contrast as indicated by examination type. Dose reduction techniques were achieved by using automated exposure control and/or adjustment of mA and/or kV according to patient size and/or use of iterative reconstruction technique. FINDINGS: LUNG BASES: No visible pulmonary or pleural disease. LIVER: No enlargement, atrophy, suspicious density, or significant focal lesion. BILIARY: No dilatation or calcification. PANCREAS: No lesion, fluid collection, or abnormal duct dilatation. SPLEEN: No enlargement or focal lesion. ADRENALS: No mass or enlargement. KIDNEYS: Mild left hydronephrosis and slight ureteral stranding. 4 mm stone suspected to be within the distal left ureter. BOWEL/MESENTERY: Large hiatal hernia. Diverticulosis of distal colon without acute inflammatory changes. No visible mass, obstruction, or bowel wall thickening. AORTA/VASCULAR: No aneurysm or dissection. RETROPERITONEUM: No mass or adenopathy. LYMPH NODES: No adenopathy. URINARY BLADDER: No visible focal wall thickening, lesion, or calculus. PELVIC ORGANS: No visible mass. Pelvic organs appropriate for patient age. ABDOMINAL WALL: No mass or hernia. BONES: Prior left hip replacement. No bony lesion or fracture. OTHER: Negative. CT/CT abdomen pelvis wo con IMPRESSION: 1. Mild left hydronephrosis and suspected 4 mm stone within distal ureter. Evaluation of the distal ureter is limited due to metallic streak artifact from right hip replacement. 2. Colonic diverticulosis. No appreciable acute diverticulitis. Electronically authenticated by: NANCY OSCAR Date: 03/27/2024 16:41
--- NOTE | 2024-03-27 15:30 | ED.MALEGU1 ---
HPI - Male Genitourinary General Chief complaint: Urogenital-Male Stated complaint: Flank Pain Time Seen by Provider: 03/27/24 15:28 Source: patient Mode of arrival: walk-in Limitations: no limitations History of Present Illness HPI Narrative: 78-year-old male presents to the emergency department for left flank pain. He thinks it might be a kidney stone. It started off dull yesterday and it got a bit worse today and it is radiating to his left inguinal area. No gross hematuria or fever. He has had kidney stones before and it feels the same. He describes the pain is moderate and now it is continuous. No injury. Related Data Previous Rx's ?Medication ?Instructions ?Recorded cephalexin 500 mg capsule 500 mg PO Q12H 7 days #14 caps 03/12/23 acetaminophen 300 mg-codeine 30 mg 1 tab PO Q6H PRN pain 5 days #20 03/27/24 tablet tabs ondansetron 4 mg disintegrating 4 mg PO Q6H PRN nausea and 03/27/24 tablet vomiting #20 tabs tamsulosin 0.4 mg capsule (Flomax) 0.4 mg PO DAILY #7 caps 03/27/24 Allergies Allergy/AdvReac Type Severity Reaction Status Date / Time No Known Drug Allergies Allergy Verified 03/12/23 09:20 Review of Systems ROS Narrative A ten point review of systems is negative except as noted above. Exam Narrative Exam Narrative: Nurses note and vital signs reviewed and patient is not hypoxic. General: The patient appears well and in no apparent distress. Patient is resting comfortably on cart. Skin: Warm, dry, no pallor noted. There is no rash noted. Head: Normocephalic, atraumatic Eye: Normal conjunctiva, no drainage Ears, Nose, Mouth, and Throat: oral mucosa is moist. Nares patent. Cardiovascular: Regular Rate and Rhythm Respiratory: Patient is in no distress, no accessory muscle use, lungs are clear to auscultation, no wheezing, rales or rhonchi Back: non-tender, no CVA tenderness bilaterally to percussion. GI: Soft and nontender Musculoskeletal: The patient has no evidence of calf tenderness, no pitting edema, symmetrical pulses noted bilaterally Neurological: A&O, normal speech Psychiatric: Cooperative Constitutional Vital Signs, click to edit/add: Last Vital Signs Temp 97.4 F L 03/27/24 15:16 Pulse 53 L 03/27/24 16:30 Resp 18 03/27/24 16:30 BP 156/72 H 03/27/24 16:30 Pulse Ox 97 03/27/24 16:30 O2 Del Method Room Air 03/27/24 15:16 Course Vital Signs Vital signs: Vital Signs Temperature 97.4 F L 03/27/24 15:16 Pulse Rate 52 L 03/27/24 15:16 Respiratory Rate 16 03/27/24 15:16 Blood Pressure 168/72 H 03/27/24 15:16 Pulse Oximetry 98 03/27/24 15:16 Oxygen Delivery Method Room Air 03/27/24 15:16 Temperature 97.4 F L 03/27/24 15:16 Pulse Rate 53 L 03/27/24 16:30 Respiratory Rate 18 03/27/24 16:30 Blood Pressure 156/72 H 03/27/24 16:30 Pulse Oximetry 97 03/27/24 16:30 Oxygen Delivery Method Room Air 03/27/24 15:16 MDM - Male Genitourinary MDM Narrative Medical decision making narrative: 4 mm distal kidney stone is identified. He is comfortable and is able to be discharged home and he is referred to urology. Treatment diagnosis and follow-up were discussed with the patient. Differential Diagnosis Differential diagnosis: Likely urinary tract infection, acute retention of urine and other (Kidney stone) Lab Data Attestation: I reviewed the patient's lab results. Labs: Lab Results 03/27/24 03/27/24 Range/Units 15:23 17:15 WBC 7.1 (4.0-11.0) 10^3/uL RBC 4.84 (4.70-6.10) 10^6/uL Hgb 14.2 (14.0-18.0) g/dL Hct 42.9 (42.0-54.0) % MCV 88.6 (80.0-94.0) fL MCH 29.3 (25.9-34.0) pg MCHC 33.1 (29.9-35.2) g/dL RDW 14.2 (11.0-15.0) % Plt Count 188 (150-450) 10^3/uL MPV 10.8 (9.5-13.5) fL Neut % (Auto) 58.9 (43.0-75.0) % Lymph % (Auto) 28.5 (20.5-60.0) % Carter % (Auto) 7.8 (1.7-12.0) % Eos % (Auto) 3.4 (0.9-7.0) % Baso % (Auto) 1.1 (0.2-2.0) % Neut # (Auto) 4.2 (1.4-6.5) 10^3/uL Lymph # (Auto) 2.0 (1.2-3.8) 10^3/uL Carter # (Auto) 0.6 (0.3-0.8) 10^3/uL Eos # (Auto) 0.2 (0.0-0.7) 10^3/uL Baso # (Auto) 0.1 (0.0-0.1) 10^3/uL Abs Immat Gran (auto) 0.02 (0.00-0.03) 10^3/uL Imm/Tot Granulo (auto) 0.3 (0.0-0.5) % Sodium 141 (136-145) mmol/L Potassium 4.2 (3.5-5.1) mmol/L Chloride 105 (98-107) mmol/L Carbon Dioxide 25.2 (21.0-32.0) mmol/L Anion Gap 15.0 BUN 25.0 H (7.0-18.0) mg/dL Creatinine 1.41 H (0.70-1.30) mg/dL Est GFR ( Amer) 59 L (>=60) Est GFR (Non-Af Amer) 49 L (>=60) BUN/Creatinine Ratio 17.7 Glucose 137 H (74-106) mg/dL Calcium 9.4 (8.5-10.1) mg/dL Urine Color Lt. yellow (YELLOW) Urine Clarity Clear (CLEAR) Urine pH 7.0 (5.0-9.0) Ur Specific [place] 1.015 (1.005-1.025) Urine Protein Negative (NEG/TRACE) mg/dL Urine Glucose (UA) Negative (NEGATIVE) mg/dL Urine Ketones Negative (NEGATIVE) mg/dL Urine Occult Blood Large A (NEGATIVE) Urine Nitrite Negative (NEGATIVE) Urine Bilirubin Negative (NEGATIVE) Urine Urobilinogen 1.0 (0.2-1.0) EU/dL Ur Leukocyte Esterase Negative (NEGATIVE) Urine RBC 75-100 A (0-2) #/HPF Urine WBC 0-2 A (NONE SEEN) #/HPF Ur Squamous Epith Cells Rare (NONE/RARE) #/LPF Urine Crystals None seen (None Seen) #/HPF Urine Bacteria Trace A (NONE SEEN) #/HPF Urine Casts None seen (NONE SEEN) #/LPF Urine Mucus Trace A (NONE SEEN) Ur Culture Indicated? No Imaging Data CT scan - abdomen: Radiologist's impression: ITS Impressions Abdomen/Pelvis CT 03/27/24 15:30 IMPRESSION: 1. Mild left hydronephrosis and suspected 4 mm stone within distal ureter. Evaluation of the distal ureter is limited due to metallic streak artifact from right hip replacement. 2. Colonic diverticulosis. No appreciable acute diverticulitis. Electronically authenticated by: NANCY OSCAR Date: 03/27/2024 16:41 Discharge Plan Discharge Stand Alone Forms: Portal Instructions Chief Complaint: Urogenital-Male Clinical Impression: Kidney stone Patient Disposition: Home, Self-Care Time of Disposition Decision: 17:57 Condition: Good Mode of Transportation: Private Vehicle Prescriptions / Home Meds: New acetaminophen-codeine 300-30 mg tablet 1 tab PO Q6H PRN (Reason: pain) 5 Days Qty: 20 0RF tamsulosin [Flomax] 0.4 mg capsule 0.4 mg PO DAILY Qty: 7 0RF ondansetron 4 mg tablet,disintegrating 4 mg PO Q6H PRN (Reason: nausea and vomiting) Qty: 20 0RF No Action cephalexin 500 mg capsule 500 mg PO Q12H 7 Days Qty: 14 0RF Print Language: Belizean Instructions: Kidney Stones (ED) Referrals: Joshua Neil MD [Physician] - 1 week ALEX HAZEL [Primary Care Provider] - 1 week
[2024-03-27] MEDS: ONDANSETRON PF 4 MG/2 ML VIAL IV (15:38)
[2024-03-27] MEDS: MORPHINE SULFATE 4 MG/ML VIAL IV (15:38)
[2024-03-27 15:46] LABS: Basophils Absolute Auto 0.1 10^3/uL (0.0-0.1); Basophils Percent Auto 1.1 % (0.2-2.0); Eosinophils Absolute Auto 0.2 10^3/uL (0.0-0.7); Eosinophils Percent Auto 3.4 % (0.9-7.0); Hematocrit 42.9 % (42.0-54.0); Hemoglobin 14.2 g/dL (14.0-18.0); Immature Granulocytes Abs Auto 0.02 10^3/uL (0.00-0.03); Immature Granulocytes Pct Auto 0.3 % (0.0-0.5); Lymphocytes Percent Auto 28.5 % (20.5-60.0); Mean Corpuscular HGB Conc 33.1 g/dL (29.9-35.2); Mean Corpuscular Hemoglobin 29.3 pg (25.9-34.0); Mean Corpuscular Volume 88.6 fL (80.0-94.0); Mean Platelet Volume 10.8 fL (9.5-13.5); Monocytes Absolute Auto 0.6 10^3/uL (0.3-0.8); Monocytes Percent Auto 7.8 % (1.7-12.0); Neutrophils Absolute Auto 4.2 10^3/uL (1.4-6.5); Neutrophils Percent Auto 58.9 % (43.0-75.0); Platelet Count 188 10^3/uL (150-450); Red Blood Count 4.84 10^6/uL (4.70-6.10); Red Cell Distribution Width 14.2 % (11.0-15.0); White Blood Count 7.1 10^3/uL (4.0-11.0)
[2024-03-27 16:23] LABS: BUN Creatinine Ratio 17.7; Calcium 9.4 mg/dL (8.5-10.1); Carbon Dioxide 25.2 mmol/L (21.0-32.0); Chloride 105 mmol/L (98-107); Estimated GFR (African America 59 (>=60); Estimated GFR (Non-African Ame 49 (>=60); Glucose 137 mg/dL (74-106); Potassium 4.2 mmol/L (3.5-5.1); Sodium 141 mmol/L (136-145)
[2024-03-27 16:30] VITALS: BP 156/72; PULSE 53; O2SAT 97
[2024-03-27 17:26] LABS: Bilirubin Urine NEGATIVE (NEGATIVE); Blood Urine LARGE (NEGATIVE); Clarity Urine CLEAR (CLEAR); Color Urine LT. YELLOW (YELLOW); Glucose Urine UA NEGATIVE (NEGATIVE); Ketones Urine NEGATIVE (NEGATIVE); Leukocyte Esterase Urine NEGATIVE (NEGATIVE); Nitrite Urine NEGATIVE (NEGATIVE); Protein Urine NEGATIVE (NEG/TRACE); Specific Gravity Urine 1.015 (1.005-1.025)
[2024-03-27 17:37] LABS: Bacteria Urine TRACE #/HPF (NONE SEEN); Mucus Urine TRACE (NONE SEEN); RBC Urine 75-100 #/HPF (0-2); WBC Urine 0-2 #/HPF (NONE SEEN)
[2024-03-27 17:38] LABS: Cast Seen? NONE SEEN #/LPF (NONE SEEN); Crystals Seen? None Seen #/HPF (None Seen); Squamous Epithelial Cell Urine RARE #/LPF (NONE/RARE); Urine Culture Indicated NO
[2024-03-27] MEDS: TAMSULOSIN HCL 0.4 MG CAPSULE PO (18:04)
[2024-03-27 18:06] VITALS: BP 130/54; PULSE 52; O2SAT 96
== END 2024-03-27 18:07 | disposition home or self-care (01) ==
PROVIDERS: Emergency Provider Emergency Medicine; PCP Family Medicine
DX: N20.0 Calculus of kidney (principal)
CPT/HCPCS: 36415; 74176; 80048; 81001; 85025; 96374; 96375; 99285; J2270; J2405

== ENCOUNTER 2024-04-13 09:43 | Outpatient (OUT) | payer MEDICARE, OTHER, SELFPAY ==
--- NOTE | 2024-04-13 09:46 | US_ITS ---
The [address] [address] Patient Name: DAVID MCKINNEY MRN: [id number] date: 1945 Sex: M Assigned Patient Location: US Current Patient Location: US Accession/Order Number: [id number] Exam Date: 04/13/2024 09:55 Report Date: 04/14/2024 06:31 At the request of: MORRO RICHARDSON Procedure: US renal BI EXAMINATION: US renal BI HISTORY: Ureteral Stone, History Of Kidney Stones COMPARISON: CT abdomen pelvis 03/27/2024 TECHNIQUE: Ultrasound examination was performed of the kidneys and urinary bladder. FINDINGS: RIGHT KIDNEY: Contains several nonobstructing echogenic foci, largest is 5 mm. Normal parenchymal echogenicity. Color Doppler demonstrates blood flow within the kidney. Kidney: 9.3 x 5.7 x 5.3 cm LEFT KIDNEY: Contain several nonobstructing echogenic foci, largest is 7 mm. Mildly dilated renal pelvis and calyces. Normal parenchymal echogenicity. Color Doppler demonstrates blood flow within the kidney. Kidney: 9.6 x 4.8 x 6.2 cm BLADDER: No visible wall thickening, mass, or calculi. US/US renal BI IMPRESSION: 1. Bilateral nonobstructing stones within the kidneys. These are not visible on the recent CT study suggesting noncalcified stones. 2. Mild left hydronephrosis, but less than seen on prior CT study. Electronically authenticated by: NANCY OSCAR Date: 04/14/2024 06:31
--- NOTE | 2024-04-13 09:53 | XR_ITS ---
The [address] [address] Patient Name: DAVID MCKINNEY MRN: [id number] date: 1945 Sex: M Assigned Patient Location: US Current Patient Location: Accession/Order Number: [id number] Exam Date: 04/13/2024 09:50 Report Date: 04/14/2024 06:28 At the request of: MORRO RICHARDSON Procedure: XR abdomen 1V EXAMINATION: XR abdomen 1V HISTORY: Ureteral Stone, History Of Kidney Stones COMPARISON: CT abdomen pelvis 03/27/2024, ultrasound kidneys 04/13/2024, XR abdomen with PA chest 03/09/2020 FINDINGS: KIDNEY/URETER - RIGHT: No visible renal or ureteral calcifications. KIDNEY/URETER - LEFT: No visible renal or ureteral calcifications. PELVIS: No convincing ureteral stones. Chronic pelvic calcifications favoring phleboliths. BOWEL: No abnormal dilation or deviation. BONES: Prior left hip replacement. OTHER: Negative. No abnormal gaseous collections. XR/XR abdomen 1V IMPRESSION: 1. No appreciable urinary tract calculi on today's abdominal radiograph. Electronically authenticated by: NANCY OSCAR Date: 04/14/2024 06:28
--- OUTSIDE RECORDS SUMMARY | 2024-04-13 10:01 | XMS_ITS | CCD ---
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 Role Phone DR NGOC WASHINGTON Attending Jeny WASHINGTON, DR NGOC Nguyen Admitting Unavailable SOMMER, DR NGOC Nguyen Primary Care Unavailable SOMMER, DR NGOC Nguyen Consulting Unavailable SOMMER, DR NGOC Nguyen Admitting Unavailable SOMMER, DR NGOC Nguyen Primary Care Unavailable SOMMER, DR NGOC Nguyen Consulting Unavailable SOMMER, DR NGOC Nguyen Attending Garima Anthony Primary Care Physician Yohan Serra Attending Yohan Eli Attending Garima Anthony Attending Unavailable Garima Garcia Attending Unavailable Yohan Serra Attending Unavailable KAREEN RICHARDSON Attending Unavailable John Whitt Attending Unavaila gage NONE, XXXX Referring Unavailable John Whitt Attending Yohan Hernandez Referring Unavailable John Whitt Consulting John Hollis Attending Griseldaa John Larkin Referring Unavaila John Larkin Admitting Griseldaa John Larkin Consulting Griseldaa John Larkin Consulting UnavailYohan Vu Attending Unavailable Yohan Serra Attending Unavailable oYhan Serra Attending Unavailable Garima Garcia Attending Yohan Eli Attending Yohan Eli Attending Unavailable Allergies Allergy Classification Reported Allergen(s) Allergy Type Date of Onset Reaction(s) Facility (1 source) No Known Medication Allergies; Translations: [No Known Medication Allergies] Propensity to adverse reactions (disorder) [facility] Repository Medications Current Medications Medication Drug Class(es) Dates Sig (Normalized) Sig (Original) aspirin 81 mg delayed release oral tablet (4 sources) Platelet Aggregation Inhibitor, Nonsteroidal Anti-inflammatory Drug Start: 02-09-2019 take 1 mg by mouth once daily aspirin 81 mg Oral EC Tab mg tab(s), Oral, Daily, Refills(s) 0 Start Date: 02/09/19 Status: Ordered celecoxib 200 mg oral capsule (2 sources) Nonsteroidal Anti-inflammatory Drug Start: 03-02-2024 take 1 capsule by mouth twice daily celecoxib 200 mg Cap See Instructions, TAKE 1 CAPSULE BY MOUTH TWICE A DAY, # 60 cap(s), Refills(s) 0, Pharmacy: [facility] [id number], 158, cm, 02/02/24 15:19:00 EDT, Height/Length Dosing, 62.7, kg, 02/02/24 15:19:00 EDT, Weight Dosing Start Date: 03/31/24 Status: Ordered losartan potassium 100 mg oral tablet (3 sources) Angiotensin 2 Receptor Dimitry Start: 05-05-2023 take 1 tablet by mouth once daily losartan 100 mg Tab 100 mg = 1 tab(s), Oral, Daily, # 90 tab(s), Refills(s) 0, [id number] 158, cm, 05/05/23 10:49:00 EDT, Height/Length Dosing, 65.1, kg, 05/05/23 10:49:00 EDT, Weight Dosing Start Date: 05/05/23 Status: Ordered 24 hr metoprolol succinate 25 mg extended release oral tablet (4 sources) beta-Adrenergic Dimitry Start: 03-24-2023 take 1 tablet by mouth twice daily metoprolol 25 mg ER Tab 25 mg = 1 tab(s), Oral, BID, Refills(s) 0 Start Date: 03/24/23 Status: Ordered pantoprazole 40 mg delayed release oral tablet (4 sources) Proton Pump Inhibitor Start: 12-23-2023 take 1 tablet by mouth once daily Pantoprazole [address] Tab 40 mg = 1 tab(s), Oral, Daily, # 90 tab(s), Refills(s) 1, Pharmacy: [facility]/pharmacy #[id number], 158, cm, 12/23/23 8:11:00 EDT, Height/Length Dosing, 65.8, kg, 12/23/23 8:11:00 EDT, Weight Dosing Start Date: 12/23/23 Status: Ordered Start: 02-09-2019 take 1 mg by mouth once daily pantoprazole 40 mg Oral EC Tab mg tab(s), Oral, Daily, Refills(s) 0 Start Date: 02/09/19 Status: Ordered rosuvastatin calcium 40 mg oral tablet (4 sources) HMG-CoA Reductase Inhibitor Start: 03-24-2023 take 1 tablet by mouth twice daily rosuvastatin 40 mg Tab 40 mg = 1 tab(s), Oral, BID, Refills(s) 0 Start Date: 03/24/23 Status: Ordered Start: 03-24-2023 take 1 tablet by christine th once daily rosuvastatin 40 mg Tab 40 mg = 1 tab(s), Oral, Daily, Refills(s) 0 Start Date: 03/24/23 Status: Ordered tamsulosin hydrochloride 0.4 mg oral capsule (1 source) alpha-Adrenergic Dimitry Start: 04-06-2024 take 1 capsule by mouth once daily tamsulosin 0.4 mg Cap 0.4 mg = 1 cap(s), Oral, Daily, TAKE 1 TABLET BY MOUTH DAILY Start Date: 04/06/24 Status: Ordered Problems Active Problems Problem Classification Problem Date Documented Date Episodic/Chronic Abdominal hernia (4 sources) Left inguinal hernia 02-09-2019 Episodic Calculus of urinary tract (2 sources) History of calculus of kidney; Translations: [Personal history of urinary calculi] Onset: 04-06-2024 Episodic Conditions associated with dizziness or vertigo (4 sources) Dizziness 05-13-2023 Episodic Coronary atherosclerosis and other heart disease (4 sources) Coronary arteriosclerosis 02-09-2019 Chronic Disorders of lipid metabolism (1 source) Hyperlipidemia 11-07-2023 Chronic Comment on above: Noted in c arelydio note and 05/19/2023 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 Esophageal disorders (4 sources) Gastroesophageal reflux disease 02-09-2019 Chronic Essential hypertension (4 sources) Hypertensive disorder 05-05-2023 Chronic Other diseases of kidney and ureters (1 source) Urinary tract obstruction; Translations: [Hydronephrosis with renal and ureteral calculous obstruction] Onset: 04-06-2024 Episodic Other injuries and conditions due to external causes (3 sources) Injury of finger 03-24-2023 Episodic Other nutritional; endocrine; and metabolic disorders (1 source) Overweight in adulthood with body mass index of 25 or more but less than 30 11-10-2023 Episodic Other skin disorders (1 source) Swelling of upper limb 02-02-2024 Episodic Rheumatoid arthritis and related disease (4 sources) Rheumatoid arthritis 05-13-2023 Chronic Unclassified (3 sources) CONTACT W/AND (SUSP) EXPOS COVID-19; Translations: [CONTACT W/AND (SUSP) EXPOS COVID-19] Onset: 09-18-2020 Unclassified (4 sources) Patient encounter status 05-13-2023 Viral infection (1 source) COVID-19; Translations: [COVID-19] Onset: 09-06-2021 Past or Other Problems Problem Classification Problem Date Documented Da te Episodic/Chronic Unclassified (1 source) CONTACT W/AND (SUSP) EXPOS COVID-19; Translations: [CONTACT W/AND (SUSP) EXPOS COVID-19] Onset: 09-04-2021 Results Test Name Value Interpretation Reference Range Facil ity Ambulatory Visit Summaryon 0 04-06-2024 Ambulatory Visit Summary Ambulatory Visit Summary DAVID MCKINNEY :1945 Visit Date:04/06/2024 Ambulatory Visit Instructions Your Diagnosis Ureteral stone with hydronephrosis History of kidney stones Tests Performed US Renal -- Results Pending -- XR Abdomen 1 View -- Results Pending -- Please visit your patient portal for your results or contact your primary care physician. Your Care Team Attending Physician - KAREEN RICHARDSON PA-C Primary Care Physician - Garima Arredondo This Is Your Medications List Contact prescribing physician if questions or concerns aspirin (aspirin 81 mg Oral EC Tab) celecoxib (celecoxib 200 mg Cap) celecoxib (celecoxib 200 mg Cap) metoprolol (metoprolol 25 mg ER Tab) pantoprazole (Pantoprazole [address] Tab) rosuvastatin (rosuvastatin 40 mg Tab) tamsulosin (tamsulosin 0.4 mg Cap) Procedures Performed Hip replacement (05/30/2020), Repair initial inguinal hernia, age 5 years or older; reducible (02/03/2019), Colonoscopy (09/29/2013), Placement of stent in cardiac conduit (08/25/2002), Repair of inguinal hernia (08/25/1979), Arthroscopy of knee. Discharge Vitals Temperature (Temporal Artery) 36.6 ?C Heart Rate (Peripheral) 53 Respiratory Rate 16 Blood Pressure 149/89 Height 63 in Height 160 cm Weight 137.94 lb Weight 62.7 kg BMI 24.49 What to do next Scheduled Follow-Up Appointments Friday 8:00 AM EDT With: Where: [address] [address]- Friday 9:00 AM EDT With: Richard Bradley MD Where: [facility] [place] Friday 8:15 AM EDT With: Yohan Serra MD Where: [address] [address]- Friday 8:15 AM EDT With: Yohan Serra MD Where: [address] [id number]- You Need to Schedule the Following Appointments Follow Up with KAREEN RICHARDSON PA-C, URL When: Where: [address] [place] [address] [phone] Medications What How Much When Instructions Unchanged aspirin (aspirin 81 mg Oral EC Tab) By Mouth Every day Contact prescribing physician if questions or concerns Unchanged celecoxib (celecoxib 200 mg Cap) See instructions TAKE 1 CAPSULE BY MOUTH TWICE A DAY Contact prescribing physician if questions or concerns Unchanged celecoxib (celecoxib 200 mg Cap) See instructions TAKE 1 CAPSULE BY MOUTH TWICE A DAY Contact prescribing physician if questions or concerns Unchanged metoprolol (metoprolol 25 mg ER Tab) 1 Tablets By Mouth 2 times a day Contact prescribing physician if questions or concerns Unchanged pantoprazole (Pantoprazole [address] Tab) 1 Tablets By Mouth Every day Contact prescribing physician if questions or concerns Unchanged rosuvastatin (rosuvastatin 40 mg Tab) 1 Tablets By Mouth 2 times a day Contact prescribing physician if questions or concerns Unchanged tamsulosin (tamsulosin 0.4 mg Cap) 1 Capsules By Mouth Every day TAKE 1 TABLET BY MOUTH DAILY Contact prescribing physician if questions or concerns Allergies No Known Medication Allergies Problems Ongoing - Any problem that you are currently receiving treatment for. BMI 27.0-27.9,adult CAD (coronary artery disease) Colon cancer screening Dizziness GERD (gastroesophageal reflux disease) History of kidney stones HTN (hypertension) Hyperlipidemia Left arm swelling Left inguinal hernia RA (rheumatoid arthritis) Patient Survey You may receive a survey via text or e-mail asking about your office visit. Please share your experience with us by completing your survey. We appreciate your feedback and thank you for choosing us for your care. [facility] Ambulatory Visit Summary Ambulatory Visit Summary DAVID MCKINNEY :1945 Visit Date:04/06/2024 Ambulatory Visit Instructions Your Diagnosis Ureteral stone with hydronephrosis History of kidney stones Tests Performed US Renal -- Results Pending -- XR Abdomen 1 View -- Results Pending -- Please visit your patient portal for your results or contact your primary care physician. Your Care Team Attending Physician - KAREEN RICHARDSON PA-C Primary Care Physician - Garima Arredondo This Is Your Medications List aspirin (aspirin 81 mg Oral EC Tab) celecoxib (celecoxib 200 mg Cap) celecoxib (celecoxib 200 mg Cap) metoprolol (metoprolol 25 mg ER Tab) pantoprazole (Pantoprazole [address] Tab) rosuvastatin (rosuvastatin 40 mg Tab) tamsulosin (tamsulosin 0.4 mg Cap) Procedures Performed Hip replacement (05/30/2020), Repair initial inguinal hernia, age 5 years or older; reducible (02/03/2019), Colonoscopy (09/29/2013), Placement of stent in cardiac conduit (08/25/2002), Repair of inguinal hernia (08/25/1979), Arthroscopy of knee. Discharge Vitals Temperature (Temporal Artery) 36.6 ?C Heart Rate (Peripheral) 53 Respiratory Rate 16 Blood Pressure 149/89 Height 63 in Height 160 cm Weight 137.94 lb Weight 62.7 kg BMI 24.49 What to do next Scheduled Follow-Up Appointments Friday 8:00 AM EDT With: Where: [facility] [address] [address]- Friday 9:00 AM EDT With: Kirk ESPARZA, Richard Zhang Where: [facility] [place] Friday 8:15 AM EDT With: Yohan Serra MD Where: [address] [address]- Friday 8:15 AM EDT With: Yohan Serra MD Where: [address] [address]- You Need to Schedule the Following Appointments Follow Up with KAREEN RICHARDSON PA-C, URL When: Where: [address] [facility] [place] [address] [phone] Medications What How Much When Instructions Unchanged aspirin (aspirin 81 mg Oral EC Tab) By Mouth Every day Unchanged celecoxib (celecoxib 200 mg Cap) See instructions TAKE 1 CAPSULE BY MOUTH TWICE A DAY Unchanged celecoxib (celecoxib 200 mg Cap) See instructions TAKE 1 CAPSULE BY MOUTH TWICE A DAY Unchanged metoprolol (metoprolol 25 mg ER Tab) 1 Tablets By Mouth 2 times a day Unchanged pantoprazole (Pantoprazole [address] Tab) 1 Tablets By Mouth Every day Unchanged rosuvastatin (rosuvastatin 40 mg Tab) 1 Tablets By Mouth 2 times a day Unchanged tamsulosin (tamsulosin 0.4 mg Cap) 1 Capsules By Mouth Every day TAKE 1 TABLET BY MOUTH DAILY Allergies No Known Medication Allergies Problems Ongoing - Any problem that you are currently receiving treatment for. BMI 27.0-27.9,adult CAD (coronary artery disease) Colon cancer screening Dizziness GERD (gastroesophageal reflux disease) History of kidney stones HTN (hypertension) Hyperlipidemia Left arm swelling Left inguinal hernia RA (rheumatoid arthritis) Patient Survey You may receive a survey via text or e-mail asking about your office visit. Please share your experience with us by completing your survey. We appreciate your feedback and thank you for choosing us for your care. [facility] Urology Office/Clinic Noteon 04-06-2024 Urology Office/Clinic Note Urology Office/Clinic Note Chief Complaint New patient, ER follow up from [facility] 03/27/24 HPI Staff Pt is a new pt. Never before seen in our office. (Verified on DA) Here today to f/u to [facility] ER 03/27/24 CC: Lt Flank Pain CT ap wo *4mm distal ureteral stone w/mild Lt hydro IPSS: 2, REGGIE: 2 Dysuria: denies Incomplete bladder emptying: denies Hematuria: denies visible blood Frequency: denies Urgency: denies Nocturia: once a night Stream: denies hesitancy, has steady stream Leaking: denies Post void dripping: denies Wearing pads/ Depends: denies Urge incontinence: denies Stress incontinence: denies Incontinence without Sensory Awareness: denies Abdominal pain: denies Flank pain: denies Sexual complaints: _ History of Present Illness staff HPI reviewed and agree. Review of Systems PHQ Score Initial Depression Screen Score: 0 SCORE no fever, chills, malaise, myalgia. no rash/lesions. no chest pain, palpitations, or SOB. no abdominal pain, nausea, vomiting. no unilateral calf swelling, redness, pain Physical Exam Vitals & Measurements T: 36.6 ?C(Temporal Artery) HR: 53(Peripheral) RR: 16 BP: 149/89 HT: 63 in HT: 160 cm WT: 62.7 kg WT: 137.94 lb BMI: 24.49 General: nontoxic, NAD Mouth: moist mucosa Lungs: normal respiratory effort Cardio: regular rate, good distal perfusion Abdomen: nondistended, no suprapubic distention or tenderness, no CVA tenderness Neurologic: Grossly normal Skin: No rashes or suspicious lesions Assessment/Plan David is a 78 yo male new pt here for [facility] ER f/u due to ureteral stone. No PSAs found on [facility]. IPSS 2. REGGIE 2. 1. Ureteral stone with hydronephrosis (N13.2: Hydronephrosis with renal and ureteral calculous obstruction) [facility] ER visit 03/27/24 due to L flank pain. CT AP wo con 03/27/24 [facility] - 4 mm stone in distal L ureter. Mild L hydro and slight ureteral stranding. Evaluation is limited due to metallic streak artifact from hip replacement. Renal fxn 03/27/24 - BUN 25, Cr 1.41, GFR 49 Discharged from ER with Tamsulosin. Denies any awareness of stone passage. No longer having any pain. UA today shows trace-intact blood only. Discussed need for imaging to evaluate if stone is still present or not. Pt understands. Shares he drinks iced tea and gatorade. Educated pt on dietary modifications for stone prevention. -Schedule GUSTAVO and KUB. If stone still present, will need to continue MET & consider ureteroscopy in a few weeks. If imaging neg, f/u prn. -Increase water intake, avoid dark colored beverages 2. History of kidney stones (Z87.442: Personal history of urinary calculi) Reports history of stones. Has passed a few throughout the years. Has been >10 yrs since most recent. Follow-up With When Contact Information DEBRA COYLE, KAREEN Nguyen, URL [address] [place] [address] [phone] Additional Instructions: f/u pending KUB and GUSTAVO Patient Education Kidney Stones, [id number] Documentation recorded by the amanda Martinez accurately reflects the services(s) I performed and decisions made by me. Authenticated by Kareen Richardson PA-C on 04/06/2024 12:27:00. I, Elena Martinez, personally scribed for Kareen Richardson PA-C on 04/06/2024 11:52:26. . Problem List/Past Medical History Ongoing BMI 27.0-27.9,adult CAD (coronary artery disease) Colon cancer screening Dizziness GERD (gastroesophageal reflux disease) History of kidney stones HTN (hypertension) Hyperlipidemia Left arm swelling Left inguinal hernia RA (rheumatoid arthritis) Historical No qualifying data Procedure/Surgical History Hip replacement (05/30/2020), Repair initial inguinal hernia, age 5 years or older; reducible (02/03/2019), Colonoscopy (09/29/2013), Placement of stent in cardiac conduit (08/25/2002), Repair of inguinal hernia (08/25/1979), Arthroscopy of knee. Medications aspirin 81 mg Oral EC Tab, Oral, Daily celecoxib 200 mg Cap, See Instructions celecoxib 200 mg Cap, See Instructions metoprolol 25 mg ER Tab, 25 mg= 1 tab(s), Oral, BID Pantoprazole [address] Tab, 40 mg= 1 tab(s), Oral, Daily, 1 refills rosuvastatin 40 mg Tab, 40 mg= 1 tab(s), Oral, BID tamsulosin 0.4 mg Cap, 0.4 mg= 1 cap(s), Oral, Daily Allergies No Known Medication Allergies [...] Smokeless Tobacco Use:. Household tobacco concerns: No., 04/06/2024 Family History Cardiac arrest: Father. Immunizations Vaccine Date Status Comments zoster vaccine, inactivated (more content not included)... [facility] Comment on above: Result Comment: Elec tronically Signed By: KAREEN RICHARDSON PA-C\.br\Date and Time Signed: 04/06/24 12:28 EDT\.br\Electronically Co-Signed By: Elena Martinez\.br\Date and Time Co-Signed: 04/06/24 11:52 EDT Physician Orderon 02-03-2024 Physician Order [id number]# 1.00TIFF [facility] RAD - MISCon 02-03-2024 RAD - MISC [id number]# 1.00TIFF [facility] RAD - Ultrasound Reporton RAD - Ultrasound Report [id number]# 1.00TIFF [facility] Ambulatory Visit Summaryon 0 02-02-2024 Ambulatory Visit [...] Appointments Friday 8:00 AM EDT With: Where: [facility] Invalid Interpretation Code [address] [place] [address]- \.br\ Friday 8:15 AM EDT \.br\ With: Yohan Serra MD\.br\ Where: [facility] Family Medicine Office/Clini c Noteon [...] and warm to touch. will send to [facility] for doppler u/s and x ray. will call with results if those images are negative will order MRI. RTC 1 week Ordered: celecoxib, 200 mg = 1 cap(s), Oral, BID, # 60 cap(s), Refills(s) 0, Pharmacy: [facility]/pharmacy #[id number], 158, cm, 02/02/24 15:19:00 EDT, Height/Length Dosing, 62.7, kg, 02/02/24 15:19:00 EDT, Weight Dosing methylPREDNISolone, = 1 packet(s), Oral, As Directed, as directed on package labeling, X 6 day(s), # 21 tab(s), Refills(s) 0, Pharmacy: [facility]/pharmacy #[id number], 158, cm, 02/02/24 15:19:00 EDT, Height/Length Dosing, 62.7, kg, 02/02/24 15:19:00 EDT, Weight Dosing tramadol, 50 mg = 1 tab(s), Oral, Bedtime, # 12 tab(s), Refills(s) 0, Pharmacy: [facility]/pharmacy #[id number], 158, cm, 02/02/24 15:19:00 EDT, Height/Length Dosing, 62.7, kg, 02/02/24 15:19:00 EDT, Weight Dosing 2. BMI 25.0-25.9,adult (Z68.25: Body mass index [BMI] 25.0-25.9, adult) BMI education complete Ordered: celecoxib, 200 mg = 1 cap(s), Oral, BID, # 60 cap(s), Refills(s) 0, [id number], 158, cm, 02/02/24 15:19:00 EDT, Height/Length Dosing, 62.7, kg, 02/02/24 15:19:00 EDT, Weight Dosing methylPREDNISolone, = 1 packet(s), Oral, As Directed, as directed on package labeling, X 6 day(s), # 21 tab(s), Refills(s) 0, [id number], 158, cm, 02/02/24 15:19:00 EDT, Height/Length Dosing, 62.7, kg, 02/02/24 15:19:00 EDT, Weight Dosing tramadol, 50 mg = 1 tab(s), Oral, Bedtime, # 12 tab(s), Refills(s) 0, [id number], 158, cm, 02/02/24 15:19:00 EDT, Height/Length Dosing, 62.7, kg, 02/02/24 15:19:00 EDT, Weight Dosing 3. Non-smoker (Z78.9: Other specified health status) continue not smoking Ordered: celecoxib, 200 mg = 1 cap(s), Oral, BID, # 60 cap(s), Refills(s) 0, [id number], 158, cm, 02/02/24 15:19:00 EDT, Height/Length Dosing, 62.7, kg, 02/02/24 15:19:00 EDT, Weight Dosing methylPREDNISolone, = 1 packet(s), Oral, As Directed, as directed on package labeling, X 6 day(s), # 21 tab(s), Refills(s) 0, [id number], 158, cm, 02/02/24 15:19:00 EDT, Height/Length Dosing, 62.7, kg, 02/02/24 15:19:00 EDT, Weight Dosing tramadol, 50 mg = 1 tab(s), Oral, Bedtime, # 12 tab(s), Refills(s) 0, [id number], 158, cm, 02/02/24 15:19:00 EDT, Height/Length Dosing, 62.7, kg, 02/02/24 15:19:00 EDT, Weight Dosing Wrist pain, left (M25.532: Pain in left wrist) will send anti inflammatory, medrol dose pack and tramadol Ordered: tramadol, 50 mg = 1 tab(s), Oral, Bedtime, # 12 tab(s), Refills(s) 0, Pharmacy: [facility]/pharmacy #[id number], 158, cm, 02/02/24 15:19:00 EDT, Height/Length [...] Directed metopr (more content not included)... [facility] Comment on above: Result Comment: Elec tronically Signed By: Garima Arredondo\.br\Date and Time Signed: 02/02/24 15:39 EDT Ambulatory Visit Summaryon 0 12-23-2023 Ambulatory Visit Summary DAVID MCKINNEY :1945 Visit Date:12/23/2023 Ambulatory Visit Instructions Your Diagnosis HTN (hypertension) Dizziness RA (rheumatoid arthritis) CAD (coronary artery disease) BMI 26.0-26.9,adult Over weight Nonsmoker Your Care Team Attending Physician - Ponce ESPARZA, Yohan Rdz Primary Care Physician - Garima Arredondo This [...] Appointments Friday 8:00 AM EDT With: Where: [facility] Invalid Interpretation Code [address] [place] [address]- \.br\ Friday 8:15 AM EDT \.br\ With: Yohan Serra MD\.br\ Where: [facility] Family Medicine Office/Clini c Noteon 12-23-2023 Family Medicine Office/Clinic Note HPI Staff David is a 78 year old male presenting for one month follow up htn and CAD Patient is here for follow up on hypertension. How often are you checking your blood pressure? occasionally What are your average readings? 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 [...] Daily, # 90 tab(s), Refills(s) 1, Pharmacy: [facility]/pharmacy #[id number], 158, cm, 12/23/23 8:11:00 EDT, Height/Length Dosing, 65.8, kg, 12/23/23 8:11:00 EDT, Weight Dosing pantoprazole, 40 mg = 1 tab(s), Oral, Daily, # 90 tab(s), Refills(s) 1, Pharmacy: [facility]/pharmacy #[id number], 158, cm, 12/23/23 8:11:00 EDT, Height/Length [...] virus vaccine, inactivated 08/02/2022 Recorded SARS-CoV-2 (COVID-19) [id number] 08/02/2022 Recorded influenza virus vaccine, inactivated 08/28/2021 Recorded SARS-CoV-2 (COVID-19) mRNA BNT-162b2 vax 05/25/2021 Recorded 2023-03-24: TPV70 SARS-CoV-2 (COVID-19) mRNA BNT-162b2 vax 10/17/2020 Recorded 2023-03-24: TPV70 SARS-CoV-2 (COVID-19) mRNA BNT-162b2 vax 09/26/2020 Recorded 2023-03-24: TPV70 pneumococcal 13-valent vaccine 05/07/2020 Recorded influenza virus vaccine, inactivated 05/07/2020 Recorded influenza virus vaccine, inactivated 06/06/2019 Recorded [facility] Comment on above: Result Comment: Elec tronically [...] numbers. This can be done either in [place] or metric measurements. Note that charts and online BMI calculators are available to help you find your BMI quickly and easily without having to do these calculations yourself. To calculate your BMI in [place] measurements: 1. Measure your weight in [...] for Disease Control and Prevention: www.cdc.gov ? [place] [employer]: www.heart.org ? National Heart, Lung, and Blood [place]: www.nhlbi.nih.gov Summary ? Body mass index (BMI) is a number that is calculated from a person's weight and height. ? BMI may help estimate how much of a person's weight is composed of fat. BMI can help identify those who may be at higher risk for certain medical problems. ? BMI can be measured using [place] measurements or metric measurements. ? BMI charts are used to identify whether you are underweight, normal weight, overweight, or obese. This information is not intended to replace advice given to you by your health care provider. Make sure you discuss any questions you have with your health care provider. Document Revised: 05/03/2020 Document Reviewed: 03/10/2020 [employer] Patient Education ? 2022 [employer] 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) - ASA [...] Daily, # 90 tab(s), Refills(s) 1, Pharmacy: [facility]/pharmacy #[id number], 158, cm, 11/10/23 9:58:00 EDT, Height/Length Dosing, 68.1, kg, 11/10/23 9:58:00 EDT, Weight Dosing pantoprazole, 40 mg = 1 tab(s), Oral, Daily, # 90 tab(s), Refills(s) 1, Pharmacy: [facility]/pharmacy #[id number], 158, cm, 11/10/23 9:58:00 EDT, Height/Length [...] virus vaccine, inactivated 08/02/2022 Recorded SARS-CoV-2 (COVID-19) mRNAMUL.ORD![id number] 08/02/2022 Recorded influenza virus vaccine, inactivated 08/28/2021 Recorded SARS-CoV-2 (COVID-19) mRNA BNT-162b2 vax 05/25/2021 Recorded 2023-03-24: TPV70 SARS-CoV-2 (COVID-19) mRNA BNT-162b2 vax 10/17/2020 Recorded 2023-03-24: TPV70 SARS-CoV-2 (COVID-19) mRNA BNT-162b2 vax 09/26/2020 Recorded 2023-03-24: TPV70 pneumococcal 13-valent vaccine 05/07/2020 Recorded influenza virus vaccine, inactivated 05/07/2020 Recorded influenza virus vaccine, inactivated 06/06/2019 Recorded Normal [facility] Comment on above: Result Comment: Elec tronically Signed By: Ponce ESPARZA, Yohan Garcia.br\Date and Time Signed: 11/10/23 10:47 EDT Patient Educationon 11-10-19 Patient Education Nutrition BMI for Adults What [...] numbers. This can be done either in [place] ([place] or metric measurements. Note that charts and online BMI calculators are available to help you find your BMI quickly and easily without having to do these calculations yourself. To calculate your BMI in [place] ([place] measurements: 1. Measure your weight in [...] for Disease Control and Prevention: www.cdc.gov ? [place] Heart Association: www.heart.org ? National Heart, Lung, and Blood [place]: www.nhlbi.nih.gov Summary ? Body mass index (BMI) is a number that is calculated from a person's weight and height. ? BMI may help estimate how much of a person's weight is composed of fat. BMI can help identify those who may be at higher risk for certain medical problems. ? BMI can be measured using [place] measurements or metric measurements. ? BMI charts are used to identify whether you are underweight, normal weight, overweight, or obese. This information is not intended to replace advice given to you by your health care provider. Make sure you discuss any questions you have with your health care provider. Document Revised: 05/03/2020 Document Reviewed: 03/10/2020 [employer] Patient Education ? 2022 [employer] Tim [facility] Heart and Vascular Office/Cl inic Noteon [...] with voice recognition artificial intelligence software, specifically TrustedID, [employer] and or CrossTx. Substitutions may have occurred due to the inherent limitations of voice recognition and artificial intelligence software. Documentation services were performed after patient or guardian consented to allow [facility] to record this visit. ION onboarding specialist and provider reviewed before signing. ION: [...] Tobacco Use:. Never (more content not included)... [facility] Comment on above: Result Comment: Elec tronically Signed By: John Whitt MD\.br\Date and Time Signed: 07/19/23 12:36 EST\.br\Electronically Co-Signed By: Irene Crespo\.br\Date and Time Co-Signed: 07/10/23 17:06 EST Physician Orderon 07-11-2023 Physician Order [id number] 5#1.00TIFF [facility] Heart and Vascular Office/Cl inic Noteon 07-10-2023 [...] few years ago through a program in [facility] and had no significant findings. The patient reports a history of 4 stents and notes no complications with them apart from occasional mild chest discomfort. He had an echocardiogram prior to his hip surgery on 05/30/2020 in [place]. It has been some time since his last stress test. 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 FAMILY [...] hyperlipidemia. He was recently hypertensive with some vlsxicywt-fz-yztgfdo blood pressure. He did improve after Dr. [...] with voice recognition artificial intelligence software, specifically TrustedID, [employer] and or CrossTx. Substitutions may have occurred due to the inherent limitations of voice recognition and artificial intelligence software. Documentation services were performed after patient or guardian consented to allow [facility] to record this visit. ION onboarding specialist and provider reviewed before signing. ION: [...] Medications aspirin (more content not included)... [facility] Comment on above: Result Comment: Elec tronically Signed By: Jose Eduardo ESPARZA, John Trimble\.br\Date and Time Signed: 07/10/23 14:58 EST\.br\Electronically Co-Signed By: Marycruz Roa.br\Date and Time Co-Signed: 06/05/23 15:02 EDT Stress EKG Tracingson 2022 Stress EKG Tracings [id number] #1.00TIFF [facility] NM Myocardial Spect Rest/Str ess 1 [...] Stress Dose (mCi Tc99M Cardiolite): 31.3 Normal [facility] US Carotid Duplex Bilateralo n 06-26-2023 [...] Criteria Committee. Vascular Medicine 2020; https://journals.sag epub.com/doi/full/10 .1177/1324349T367777 253 Ordering Provider: John Whitt FINAL REPORT Dictated: 06/26/2023 11:17 am Harpal Anderson M.D. Signed (Electronic Signature): 06/26/2023 11:17 am Signed by: Harpal Anderson M.D. Transcribed by: MARIAM Technologist: SAUL Technical Comments Velocities Right Vert. Antegrade Yes Velocities Left Vert. Antegrade Yes [facility] Consent for Treatmenton Consent for Treatment [id number] #1.00TIFF [facility] Physician Referralon 023 Physician Referral [id number] #1.00TIFF [facility] Physician Orderon 06-06-2023 Physician Order [id number] #1.00TIFF [facility] Transfer Inon 05-21-2023 Transfer In [id number] #1.00CD:127 [facility] Auth for Release of Medical Recordson 05-19-2023 Auth for Release of Medical Records [id number] #1.00CD:127 [facility] Historical Records Officeon 05-15-2023 Historical Records Office [id number] 9#1.00CD:127 [facility] Lab Reportson 05-15-2023 Lab Reports [id number]# 1.00CD:127 [facility] Patient Logson 05-15-2023 Patient Logs [id number] #1.00CD:127 [facility] Physician Referralon 023 Physician Referral [id number] #1.00CD:127 Normal [facility] Ambulatory Visit Summaryon 0 05-13-2023 Ambulatory [...] AM EDT With: Yohan Serra MD Where: [facility] Normal [address] [place] [address]- \.br\ Medications\.br\ What How Much When Instructions\.br\ [...] (hypertension)\.b r\ Left inguinal hernia\.br\ \.br\ [facility] Family Medicine Office/Clini c Noteon 05-13-2023 Family Medicine Office/Clinic Note HPI Staff Bill is a 77 year old male here [...] - Dizziness is improving - Needs new tuber machine 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 as his has 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 - HTN are [...] artery disease) (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 Dizziness (R42: Dizziness and giddiness) - Improving - Follow up with PT Ordered: [facility] External Ambulatory Referral [facility] Internal Ambulatory Referral 3. GERD (gastroesophageal reflux disease) (K21.9: Gastro-esophageal reflux disease without esophagitis) - Stable Ordered: Body Mass Index (BMI) documented 3008F Current tobacco non-user 1036F Depression Screening Negative 3352F [facility] External Ambulatory Referral [facility] Internal Ambulatory Referral Influenza immunization administered or [...] tobacco non-user 1036F Depression Screening Negative 3352F [facility] External Ambulatory Referral [facility] Internal Ambulatory Referral Influenza immunization administered or [...] tobacco non-user 1036F Depression Screening Negative 3352F [facility] External Ambulatory Referral [facility] Internal Ambulatory Referral Influenza immunization administered or [...] age 5 years or older; reducible (02/03/2019), [place] (more content not included)... Normal [facility] Comment on above: Result Comment: Elec tronically Signed By: Ponce ESPARZA, Yohan Rdz\.lily\Date and Time Signed: 05/13/23 15:40 EDT Physician Orderon 05-07-2023 Physician Order [id number] #1.00CD:127 Normal [facility] Ambulatory Visit Summaryon 0 05-05-2023 Ambulatory Visit Summary DAVID MCKINNEY :1945 Visit Date:05/05/2023 Ambulatory Visit Instructions Your [...] Follow-Up Appointments Friday 2:20 PM EDT With: Yohan Serra MD Where: [facility] [address] [place] [address] \.br\ Medications\.br\ What How Much When Instructions\.br\ New losartan (losartan 100 mg Tab) 1 Tablets By Mouth Every day Pickup at [facility]/pharmacy #[id number]\.br\ Unchanged aspirin (aspirin 81 mg Oral EC [...] if questions or concerns \.br\ Pharmacy Information\.br\ [facility]/pharmacy #[id number]: [address], [place] [id number] [phone]\.br\ \.br\ What How Much When Comments\.br\ Stop Taking meloxicam (meloxicam 15 mg Tab) 1 Tablets By Mouth Every day\.br\ Allergies\.br\ No Known Medication Allergies\.br\ Problems\.br\ Ongoing - Any problem that you are currently receiving treatment for.\.br\ CAD (coronary artery disease)\.br\ Finger injury\.br\ GERD (gastroesophageal reflux disease)\.br\ HTN (hypertension)\.b r\ Left inguinal hernia\.br\ \.br\ [facility] Family Medicine Office/Clini c Noteon 05-05-2023 Family [...] Will add losartan - Pt to call [facility] to see if he needs a stress test given his cardiac hx - Want to try and increase the HR given the dizziness. - I am hoping to cut the BB down a little. But need to get the BP under control first. 2. CAD (coronary artery disease) (I25.10: Atherosclerotic heart disease of viejas coronary artery without angina pectoris) - Continue [...] Daily, # 90 tab(s), Refills(s) 0, Pharmacy: [facility]/pharmacy #[id number], 158, cm, 05/05/23 10:49:00 EDT, Height/Length [...] virus vaccine, inactivated 08/02/2022 Recorded SARS-CoV-2 (COVID-19) mRNAMUL.ORD![id number] 08/02/2022 Recorded influenza virus vaccine, inactivated 08/28/2021 Recorded SARS-CoV-2 (COVID-19) mRNA BNT-162b2 vax 05/25/2021 Recorded 2023-03-24: TPV70 SARS-CoV-2 (COVID-19) mRNA BNT-162b2 vax 10/17/2020 Recorded 2023-03-24: TPV70 SARS-CoV-2 (COVID-19) mRNA BNT-162b2 vax 09/26/2020 Recorded 2023-03-24: TPV70 pneumococcal 13-valent vaccine 05/07/2020 Recorded influenza virus vaccine, inactivated 05/07/2020 Recorded influenza virus vaccine, inactivated 06/06/2019 Recorded Normal [facility] Comment on above: Result Comment: Elec tronically Signed By: Ponce ESPARZA, Yohan Garcia.br\Date and Time Signed: 05/05/23 11:21 EDT Immunization Recordson 04-29 Immunization Records [id number] #1.00CD:127 [facility] Auth for Release of Medical Recordson 04-17-2023 Auth for Release of Medical Records [id number] #1.00CD:127 [facility] Ambulatory Visit Summaryon 0 04-15-2023 Ambulatory Visit [...] EDT With: Ponce ESPARZA, Yohan Rdz Where: [place] [id number] \.br\ Medications\.br\ What How Much When Instructions\.br\ [...] ? \.br\ Place frequently used items in oeym-pe-wcbpv places. Lower the shelves around your home [...] way.\.br\ ? \.br\ Do not use floor citizen of the [place] or wax that makes floors slippery. If [...] include working with a physical therapist or product trainer to improve your strength, balance, and endurance.\.br\ Where to find more information\.br\ ? \.br\ Centers for Disease Control and Prevention, [place]: www.cdc.gov\.br\ ? \.br\ National [place] on Aging: www.maldon[place].nih.gov\. br\ Contact a health [...] provider.\.br\ Document Revised: 05/13/2022 Document Reviewed: 03/14/2021 [employer] Patient Education ? 2022 [employer].br\ DASH Eating Plan\.br\ DASH stands for [...] as the first word in the ingr [facility] Auth for Release of Medical Recordson 04-15-2023 Auth for Release of Medical Records [id number] #1.00CD:127 Normal [facility] Family Medicine Office/Clini c Noteon 04-15-2023 [...] of clutter to prevent tripping and/or falling. [place] Advance Directives reviewed, patient has on file at [facility], patient request that office obtain from [facility]. 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 Patient denies any symptoms or concerns of [...] lean whit (more content not included)... Normal [facility] Comment on above: Result Comment: Elec [...] night-lights. ? Place frequently used items in xhft-ga-tlkwf places. Lower the shelves around your home [...] the way. ? Do not use floor citizen of the [place] or wax that makes floors slippery. If [...] include working with a physical therapist or product trainer to improve your strength, balance, and endurance. Where to find more information ? Centers for Disease Control and Prevention, [place]: www.cdc.gov ? National [place] on Aging: www.maldonado.nih.gov Contact a health care [...] health ca (more content not included)... Normal [facility] Screenson 04-15-2023 Screens [id number] #1.00CD:127 [facility] Covid-19 PCR (CVDTB)on 08-25 SARS-CoV-2 (COVID-19) RNA CUONG+probe Ql (Unsp spec) Detected Critically abnormal NOT DETECTED [facility] Comment on above: Result Comment: This test is not yet approved or cleared by the [place] FDA. When there are no FDA-approved or cleared tests available, and other criteria are met, FDA can make tests available under an emergency access mechanism called an Emergency Use Authorization (EUA). The EUA for this test is supported by the [place] of Health and Human Service's (HHS's) declaration [...] used). Performed By: #### C VDTB #### [facility] [address] [place] [address] Dr. Romeo Mcfadden Covid-19 PCR (CVDTBH)on 08-26 EUA Statement SEE BELOW Normal [facility] Comment on above: Result Comment: This test is not yet approved or cleared by the [place] FDA. When there are no FDA-approved or cleared tests available, and other criteria are met, FDA can make tests available under an emergency access mechanism called an Emergency Use Authorization (EUA). The EUA for this test is supported by the [place] Professor of Health and Human Service?s (HHS?s) declaration [...] consistent with SARS-CoV-2. Performed By: #### C VDTB #### [facility] [address] [place] [address] Chaparrita Drummond SARS-CoV-2 (COVID-19) RNA CUONG+probe Ql (Unsp spec) Not detected Normal NOT DETECTED [facility] Comment on above: Result Comment: This test is not yet approved or cleared by the [place] FDA. When there are no FDA-approved or cleared tests available, and other criteria are met, FDA can make tests available under an emergency access mechanism called an Emergency Use Authorization (EUA). The EUA for this test is supported by the [place] of Health and Human Service's (HHS's) declaration [...] longer be used). Performed By: #### C VDTBH #### [facility] [address] [place], [place] [id number] Chaparrita Drummond Vital Signs Date Time Vital Sign Value Performing Clinician Macy patterson 04-06-2024 11:39-0400 Diastolic blood pressure 89 mm[Hg] KAREEN DEBRA [facility] 04-06-2024 11:39-0400 Mean blood pressure 109 mm[Hg] KAREEN DEBRA [facility] 04-06-2024 11:39-0400 Systolic blood pressure 149 mm[Hg] KAREEN DEBRA [facility] 04-06-2024 11:27-0400 Body temperature 97.88 [degF] KAREEN DEBRA [facility] 04-06-2024 11:27-0400 Diastolic blood pressure 79 mm[Hg] KAREEN DEBRA [facility] 04-06-2024 11:27-0400 Heart rate 53 /min KAREEN DEBRA [facility] 04-06-2024 11:27-0400 Respiratory rate 16 /min KAREEN DEBRA [facility] 04-06-2024 11:27-0400 Systolic blood pressure 149 mm[Hg] KAREEN DEBRA [facility] 07-10-2023 14:21-0500 Diastolic blood pressure 68 mm[Hg] John Whitt [facility] 07-10-2023 14:21-0500 Heart rate 63 /min John Whitt [facility] 07-10-2023 14:21-0500 SaO2% (BldA) [Mass fraction] 96 % John Whitt [facility] 07-10-2023 14:21-0500 Systolic blood pressure 138 mm[Hg] John Jose Eduardo [facility] 06-05-2023 12:51-0400 Diastolic blood pressure 78 mm[Hg] John Jose Eduardo [facility] 06-05-2023 12:51-0400 Heart rate 51 /min John Jose Eduardo [facility] 06-05-2023 12:51-0400 SaO2% (BldA) [Mass fraction] 96 % John Jose Eduardo [facility] 06-05-2023 12:51-0400 Systolic blood pressure 140 mm[Hg] John Whitt [facility] Encounters Encounter Date Encounter Type Care Provider Facility Start: 04-06-2024 End: 04-06-2024 ambulatory KAREEN RICHARDSON Facility:[facility] Start: 04-06-2024 End: 04-06-2024 Patient encounter procedure KAREEN RICHARDSON [facility] Start: 03-29-2024 End: 03-29-2024 ambulatory Yohan Serra Facility:[facility] Start: 02-02-2024 End: 02-02-2024 ambulatory Garima Garcia Facility:[facility] Start: 12-23-2023 End: 12-23-2023 ambulatory Yohan Serra Facility:[facility] Start: 11-10-2023 End: 11-10-2023 ambulatory [facility] Serra [facility] Start: 07-10-2023 End: 07-10-2023 ambulatory John Whitt Facility:[facility] Start: 07-10-2023 End: 07-10-2023 Patient encounter procedure John Whitt [facility] Start: 06-25-2023 End: 06-25-2023 ambulatory John Whitt Facility:[facility] Start: 06-25-2023 End: 06-25-2023 Patient encounter procedure John Whitt [facility] Start: 06-05-2023 End: 06-05-2023 ambulatory Jhon Whitt Facility:[facility] Start: 06-05-2023 End: 06-05-2023 Patient encounter procedure John Whitt [facility] Start: 05-15-2023 ambulatory Yohan Serra Facility: [facility] Start: 05-13-2023 End: 05-13-2023 ambulatory Yohan Serra Facility:[facility] Start: 05-05-2023 ambulatory Garima Garcia Facility: [facility] Start: 05-05-2023 End: 05-05-2023 ambulatory Yohan Serra Facility: [facility] Start: 04-15-2023 End: 04-15-2023 ambulatory Garima Garcia Facility:[facility] Start: 09-04-2021 End: 09-04-[address] NGOC [place] Facility: Start: 09-13-2020 End: 09-13-[address] NGOC [...] Activity Detail Author Start: 06-22-2024 ambulatory Ambulatory Facility:[facility] Start: 05-10-2024 ambulatory Ambulatory Facility:[facility] [place] Start: 04-19-2024 ambulatory Ambulatory Facility:[facility] Immunizations Immunization Date Immunization Notes Care Provider Fa ziyad 09-14-2023 zoster vaccine recombinant KAREEN DEBRA [facility] 07-01-2023 zoster vaccine recombinant KAREEN DEBRA [facility] 04-26-2023 influenza virus vaccine, unspecified formulation John Whitt [facility] 08-02-2022 influenza virus vaccine, unspecified formulation John Whitt [facility] 08-02-2022 SARS-CoV-2 (COVID-19 ) mRNAMUL.ORD![id number] John Whitt [facility] 08-28-2021 influenza virus vaccine, unspecified formulation John Whitt [facility] 05-25-2021 SARS-CoV-2 (COVID-19 ) mRNA BNT-162b2 vax John Whitt [facility] Comment on above: Result Comment: 2022: TPV70 10-17-2020 SARS-CoV-2 (COVID-19 ) mRNA BNT-162b2 vax John Whitt [facility] Comment on above: Result Comment: 2022: TPV70 09-26-2020 SARS-CoV-2 (COVID-19 ) mRNA BNT-162b2 vax John Whitt [facility] Comment on above: Result Comment: 2022: TPV70 05-07-2020 influenza virus vaccine, unspecified formulation John Whitt [facility] 05-07-2020 pneumococcal conjugate vaccine, 13 valent John Whitt [facility] 06-06-2019 influenza virus vaccine, unspecified formulation John Whitt [facility] Payers Date Payer Category Payer Medicare [id number] 1958 Unknown [id number] 1945 Unknown [id number] 2.16.84 [id number] 1945 Unknown [id number] 2.16.84 0.1.544366.3.579.2.593 1945 Unknown [id number] 2.16.8 40.1.054408.3.579.2.727 1945 Unknown [id number] 2.16.8 40.1.609234.3.579.2.727 1945 Unknown [id number] 2.16.8 40.1.331662.3.579.2.727 1945 Unknown [id number] 2.16.8 40.1.428274.3.579.2.727 1945 Unknown [id number] 2.16.8 40.1.478681.3.579.2.727 1945 Unknown [id number] 2.16.8 40.1.623931.3.579.2.727 1945 Unknown [id number] 2.16.8 40.1.854747.3.579.2.727 1945 Unknown [id number] 2.16.8 40.1.695445.3.579.2.727 1945 Unknown [id number] 2.16.8 40.1.273172.3.579.2.727 1945 Unknown [id number] 2.16.8 40.1.145832.3.579.2.727 1945 Unknown [id number] 2.16.8 40.1.883241.3.579.2.727 1945 Unknown [id number] 2.16.8 [id number] 1945 Unknown [id number] 2.16.8 [id number] 1945 Unknown [id number] 2.16.8 [id number] 1945 Unknown [id number] 2.16.8 [id number] Social History Date Type Detail Facility Start: 06-05-2023 End: 04-06-2024 Tobacco smoking status Never smoked tobacco (finding) [facility] Tobacco smoking status Never [facility] Sex Assigned At Male [facility] Functional Status Date Assessment Result Facility 04-06-2024 Functional Status N/A [facility] 07-10-2023 Functional Status No [facility] 06-05-2023 Functional Status No [facility] Hospital Discharge instructions 04-06-2024 Note Date & Type Note Facility 04-06-2024 Hospital Discharg e instructions Patient Education 04/06/2024 11:52:01 Kidney Stones, [id number] Kidney Stones Kidney stones are rock-like masses that form inside of the kidneys. Kidneys are organs that make pee (urine). A kidney stone may move into other parts of the urinary tract, including: The tubes that connect the kidneys to the bladder (ureters). The bladder. The tube that carries urine out of the body (urethra). Kidney stones can cause very bad pain and can block the flow of pee. The stone usually leaves your body (passes) through your pee. You may need to have a doctor take out the stone. What are the causes? Kidney stones may be caused by: A condition in which certain glands make too much parathyroid hormone (primary hyperparathyroidism). A buildup of a type of crystals in the bladder made of a chemical called uric acid. The body makes uric acid when you eat certain foods. Narrowing (stricture) of one or both of the ureters. A kidney blockage that you were born with. Past surgery on the kidney or the ureters, such as gastric bypass surgery. What increases the risk? You are more likely to develop this condition if: You have had a kidney stone in the past. You have a family history of kidney stones. You do not drink enough water. You eat a diet that is high in protein, salt (sodium), or sugar. You are overweight or very overweight (obese). What are the signs or symptoms? Symptoms of a kidney stone may include: Pain in the side of the belly, right below the ribs (flank pain). Pain usually spreads (radiates) to the groin. Needing to pee often or right away (urgently). Pain when going pee (urinating). Blood in your pee (hematuria). Feeling like you may vomit (nauseous). Vomiting. Fever and chills. How is this treated? Treatment depends on the size, location, and makeup of the kidney stones. The stones will often pass out of the body through peeing. You may need to: Drink more fluid to help pass the stone. In some cases, you may be given fluids through an IV tube put into one of your veins at the hospital. Take medicine for pain. Make changes in your diet to help keep kidney stones from coming back. Sometimes, medical procedures are needed to remove a kidney stone. This may involve: A procedure to break up kidney stones using a beam of light (laser) or shock waves. Surgery to remove the kidney stones. Follow these instructions at home: Medicines Take dcoi-ahg-jlczxfv and prescription medicines only as told by your doctor. Ask your doctor if the medicine prescribed to you requires you to avoid driving or using heavy machinery. Eating and drinking Drink enough fluid to keep your pee pale yellow. You may be told to drink at least 8 10 glasses of water each day. This will help you pass the stone. If told by your doctor, change your diet. This may include: ?Limiting how much salt you eat. ?Eating more fruits and vegetables. ?Limiting how much meat, poultry, fish, and eggs you eat. Follow instructions from your doctor about eating or drinking restrictions. General instructions Collect pee samples as told by your doctor. You may need to collect a pee sample: ?24 hours after a stone comes out. ?8 12 weeks after a stone comes out, and every 6 12 months after that. Strain your pee every time you pee (urinate), for as long as told. Use the strainer that your doctor recommends. Do not throw out the stone. Keep it so that it can be tested by your doctor. Keep all follow-up visits as told by your doctor. This is important. You may need follow-up tests. How is this prevented? To prevent another kidney stone: Drink enough fluid to keep your pee pale yellow. This is the best way to prevent kidney stones. Eat healthy foods. Avoid certain foods as told by your doctor. You may be told to eat less protein. Stay at a healthy weight. Where to find more information National Kidney Foundation (NKF): www.kidney.org Urology Care Foundation (UCF): www.urologyhealth.org Contact a doctor if: You have pain that gets worse or does not get better with medicine. Get help right away if: You have a fever or chills. You get very bad pain. You get new pain in your belly (abdomen). You pass out (faint). You cannot pee. Summary Kidney stones are rock-like masses that form inside of the kidneys. Kidney stones can cause very bad pain and can block the flow of pee. The stones will often pass out of the body through peeing. Drink enough fluid to keep your pee pale yellow. This information is not intended to replace advice given to you by your health care provider. Make sure you discuss any questions you have with your health care provider. Document Revised: 04/15/2022 Document Reviewed: 04/15/2022 [employer] Patient Education 2022 [employer]. Follow Up Care 03/29/2024 09:23:26 With:DEBRA COYLE, KAREEN Nguyen, URL Address: [address] [place] [address] [id number] When: Unknown [facility] Clinical Note 04-06-2024 Note Date & Type Note Facility 04-06-2024 Note Patient Education Urology Kidney Stones Kidney stones are rock-like masses that form inside of the kidneys. Kidneys are organs that make pee (urine). A kidney stone may move into other parts of the urinary tract, including: ? The tubes that connect the kidneys to the bladder (ureters). ? The bladder. ? The tube that carries urine out of the body (urethra). Kidney stones can cause very bad pain and can block the flow of pee. The stone usually leaves your body (passes) through your pee. You may need to have a doctor take out the stone. What are the causes? Kidney stones may be caused by: ? A condition in which certain glands make too much parathyroid hormone (primary hyperparathyroidism). ? A buildup of a type of crystals in the bladder made of a chemical called uric acid. The body makes uric acid when you eat certain foods. ? Narrowing (stricture) of one or both of the ureters. ? A kidney blockage that you were born with. ? Past surgery on the kidney or the ureters, such as gastric bypass surgery. What increases the risk? You are more likely to develop this condition if: ? You have had a kidney stone in the past. ? You have a family history of kidney stones. ? You do not drink enough water. ? You eat a diet that is high in protein, salt (sodium), or sugar. ? You are overweight or very overweight (obese). What are the signs or symptoms? Symptoms of a kidney stone may include: ? Pain in the side of the belly, right below the ribs (flank pain). Pain usually spreads (radiates) to the groin. ? Needing to pee often or right away (urgently). ? Pain when going pee (urinating). ? Blood in your pee (hematuria). ? Feeling like you may vomit (nauseous). ? Vomiting. ? Fever and chills. How is this treated? Treatment depends on the size, location, and makeup of the kidney stones. The stones will often pass out of the body through peeing. You may need to: ? Drink more fluid to help pass the stone. In some cases, you may be given fluids through an IV tube put into one of your veins at the hospital. ? Take medicine for pain. ? Make changes in your diet to help keep kidney stones from coming back. Sometimes, medical procedures are needed to remove a kidney stone. This may involve: ? A procedure to break up kidney stones using a beam of light (laser) or shock waves. ? Surgery to remove the kidney stones. Follow these instructions at home: Medicines ? Take zlar-max-kwyptaw and prescription medicines only as told by your doctor. ? Ask your doctor if the medicine prescribed to you requires you to avoid driving or using heavy machinery. Eating and drinking ? Drink enough fluid to keep your pee pale yellow. You may be told to drink at least 8?10 glasses of water each day. This will help you pass the stone. ? If told by your doctor, change your diet. This may include: ? Limiting how much salt you eat. ? Eating more fruits and vegetables. ? Limiting how much meat, poultry, fish, and eggs you eat. ? Follow instructions from your doctor about eating or drinking restrictions. General instructions ? Collect pee samples as told by your doctor. You may need to collect a pee sample: ? 24 hours after a stone comes out. ? 8?12 weeks after a stone comes out, and every 6?12 months after that. ? Strain your pee every time you pee (urinate), for as long as told. Use the strainer that your doctor recommends. ? Do not throw out the stone. Keep it so that it can be tested by your doctor. ? Keep all follow-up visits as told by your doctor. This is important. You may need follow-up tests. How is this prevented? To prevent another kidney stone: ? Drink enough fluid to keep your pee pale yellow. This is the best way to prevent kidney stones. ? Eat healthy foods. ? Avoid certain foods as told by your doctor. You may be told to eat less protein. ? Stay at a healthy weight. Where to find more information ? National Kidney Foundation (NKF): www.kidney.org ? Urology Care Foundation (UCF): www.urologyhealth.org Contact a doctor if: ? You have pain that gets worse or does not get better with medicine. Get help right away if: ? You have a fever or chills. ? You get very bad pain. ? You get new pain in your belly (abdomen). ? You pass out (faint). ? You cannot pee. Summary ? Kidney stones are rock-like masses that form inside of the kidneys. ? Kidney stones can cause very bad pain and can block the flow of pee. ? The stones will often pass out of the body through peeing. ? Drink enough fluid to keep your pee pale yellow. This information is not intended to replace advice given to you by your health care provider. Make sure you discuss any questions you have with your health care provider. Document Revised: 04/15/2022 Document Reviewed: 04/15/2022 [employer] Patient Education ? 2022 [employer]. [facility] Clinical Note 06-25-2023 Note Date & Type Note Facility 06-25-2023 Note Echocardiology Procedure Exam Date/Time Accession # Ordering Dr. Fortune Transthoracic 06/25/2023 08:39 EDT [id number] John Whitt MD CPT code 16217 [id number] Reason for Exam (Echo Transthoracic Complete) I25.10;CAD Coronary artery disease Report [facility] [address] [place] [address] Adult Echocardiogram Report Name: DAVID MCKINNEY Study Date: 06/25/2023 07:55 AM BP: 151/70 mmHg Patient Location: [facility] HR: 50 : 1945 Gender: Male Height: 63 in Age: 77 yrs Ethnicity: [facility] Weight: 144 lb Reason For Study: CAD Coronary artery disease BSA: 1.7 m2 History: HTN,Stents Ordering Physician: Jose Eduardo^John^Nai Referring Physician: John Whitt Performed By: Brigette Carver, ANGYMS, RVT Interpretation Summary Ejection Fraction = 60-65%. [...] Signed by: John Whitt MD Transcribed by: [facility] Technologist: VIVIEN [facility] Evaluation + Plan note Radiology Note Date & Type Note Facility Evaluation + Plan note Future Appointments Appointment Date:07/10/2023 02:15:00 PM Scheduled Provider:John Whitt MD Location[facility] Appointment Type:Cardiology Follow Up (FT) Appointment Date:11/10/2023 10:00:00 AM Scheduled Provider:Yohan Serra MD Location:[facility] Appointment Type: Open Appointment Date:04/19/2024 08:00:00 AM Scheduled Provider: Location:[facility] Appointment Type: Medicare Wellness Subsequent Future Scheduled TestsNM Myocardial Spect Rest/Stress 1 Day 06/05/23Echo Transthoracic Complete 06/05/23US Carotid Duplex Bilateral 06/05/23 [facility] Evaluation + Plan note Note Date & Type Note Facility Evaluation + Plan note Future Appointments Appointment Date:07/10/2023 02:15:00 PM Scheduled Provider:John Whitt MD Location:[facility] Appointment Type:Cardiology Follow Up (FT) Appointment Date:11/10/2023 10:00:00 AM Scheduled Provider:Yohan Serra MD Location[facility] Appointment Type:FM Open Appointment Date:04/19/2024 08:00:00 AM Scheduled Provider: Location:[facility] Appointment Type:FM Medicare Wellness Subsequent [facility] Evaluation + Plan note Note Date & Type Note Facility Evaluation + Plan note Future Appointments Appointment Date:11/10/2023 10:00:00 AM Scheduled Provider:Yohan Serra MD Location[facility] Appointment Type:FM Open Appointment Date:04/19/2024 08:00:00 AM Scheduled Provider: Location:[facility] Appointment Type:FM Medicare Wellness Subsequent [facility] Evaluation + Plan note Note Date & Type Note Facility Evaluation + Plan note Future Appointments Appointment Date:04/19/2024 08:00:00 AM Scheduled Provider: Location:[facility] Appointment Type:FM Medicare Wellness Subsequent Appointment Date:04/30/2024 09:00:00 AM Scheduled Provider:Richard Bradley MD [facility] [place] App[facility] Type:Cardiology Follow Up (FT) Appointment Date:05/10/2024 08:15:00 AM Scheduled Provider:Yohan Serra MD Location:[facility] Appointment Type:FM Open Appointment Date:06/22/2024 08:15:00 AM Scheduled Provider:Yohan Serra MD [facility]: Open [facility] Hospital course Narrative Note Date & Type Note Facility Hospital course Narrative No data available for this section [facility] Hospital Discharge instructions Note Date & Type Note Facility Hospital Discharge instructions No data available for this section [facility] Progress note Note Date & Type Note Facility Progress note No data available for this section [facility] Summary Purpose Family History No Family [...] [facility] DATE CREATED AUTHOR AUTHOR'S ORGANRENE ATION 04/08/2024 [facility] Patient Care team informatio n (unrecognized section and content) Personnel Name: Garima Arredondo Address: Address: [address] [place] [address]- Personnel Name: Garima Arredondo Address: Address: [address] [place] [address]- Personnel Name: Garima Arredondo Address: Address: [address] [place] [address]- Personnel Name: Garima Arredondo Address: Address: [address] [place] [address]- FOR RECORDS PERTAINING TO PATIENTS WHO ARE [...] BE BASED ON THE PRIMARY CLINICAL RECORDS. [employer] provides no warranty or guarantee of the accuracy or completeness of information in this document.
== END 2024-04-13 09:44 | disposition home or self-care (01) ==
LOC: US 09:43
PROVIDERS: PCP Family Medicine; Visit Provider Physician Assistant
DX: N13.2 Hydronephrosis with renal and ureteral calculous obstruction (principal); Z87.442 Personal history of urinary calculi
CPT/HCPCS: 74018; 76775

== ENCOUNTER 2024-04-22 07:52 | Outpatient (OUT) | payer MEDICARE, OTHER, SELFPAY ==
--- NOTE | 2024-04-22 07:54 | CT_ITS ---
The [address] [address] Patient Name: DAVID MCKINNEY MRN: [id number] date: 1945 Sex: M Assigned Patient Location: CT Current Patient Location: Accession/Order Number: [id number] Exam Date: 04/22/2024 07:57 Report Date: 04/23/2024 09:30 At the request of: ELEAZAR STACK Procedure: CT abdomen pelvis wo con EXAM: CT abdomen pelvis wo con HISTORY: History Of Kidney Stones COMPARISON: CT abdomen and pelvis 03/27/2024 TECHNIQUE: Axial soft tissue windows of the abdomen and pelvis with coronal and sagittal reformats. CT dose reduction technique was used including Automated Exposure Control. Findings: Lack of intravenous contrast limits evaluation. The liver, gallbladder, pancreas, and adrenal glands are unremarkable. Mild nonspecific bilateral perinephric fat stranding. No renal stones or collecting system dilatation. The bilateral ureters are nondilated. Evaluation of the bowel is limited given the absence of oral contrast. Large hiatal hernia. There are colonic diverticula. No bowel junction. The appendix is nondilated definitely identified. The aorta is normal caliber. Mild atherosclerotic disease. No enlarged abdominal lymph nodes or free abdominal fluid. Pelvis: Evaluation is limited due to streak artifact generated by the left hip arthroplasty. Differential bladder wall thickening likely relates to lack of distention. No bladder calculi. The prostate is nonenlarged No enlarged pelvic lymph nodes or free pelvic fluid. Grade 1 anterolisthesis of L4 on L5. Multilevel degenerative spondylosis no aggressive sclerotic or lytic osseous lesions. CT/CT abdomen pelvis wo con IMPRESSION: 1. No renal stones or collecting. 2. Large hiatal hernia. 3. Other nonemergent findings, as described above. Electronically authenticated by: KELSEY APARICIO Date: 04/23/2024 09:30
--- OUTSIDE RECORDS SUMMARY | 2024-04-22 08:06 | XMS_ITS | CCD ---
Author Organization [facility] CliniSyor Care Team Providers Care Patient Experience Coordinator Name Role Phone DR NGOC WASHINGTON Attending Jeny WASHINGTON, DR NGOC Nguyen Admitting Unavailable SOMMER, DR NGOC Nguyen Primary Care Unavailable SOMMER, DR NGOC Nguyen Consulting Unavailable SOMMER, DR NGOC Nguyen Admitting Unavailable SOMMER, DR NGOC Nguyen Primary Care Unavailable SOMMER, DR NGOC Nguyen Consulting Unavailable SOMMER, DR NGOC Nguyen Attending Garima Anthony Primary Care Physician Garima Garcia Attending Yohan Eli Attending Yohan Eli Attending Unavailable KAREEN RICHARDSON Attending Unavailable John Whitt Attending UnavailYohan Vu Referring Unavailable John Whitt Attending Unavaila gage NONE, XXXX Referring Unavailable John Whitt Attending John Hollis Referring Unavaila John Larkin Admitting John Hollis Consulting MD John Hollis Consulting Unava ilJohn Loo Consulting Garima Rodrigues Attending Unavailable Garima Garcia Attending Unavailable Yohan Serra Attending Unavailable Yohan Serra Attending Unavailable Yohan Serra Attending Unavailable Yohan Serra Attending Unavailable Yohan Serra Attending Unavailable Garima Garcia Attending Unavailable Yohan Serra Attending Unavailable Allergies Allergy Classification Reported Allergen(s) Allergy Type Date of Onset Reaction(s) Facility (1 source) No Known Medication Allergies; Translations: [No Known Medication Allergies] Propensity to adverse reactions (disorder) [facility] Repository Medications Current Medications Medication Drug [...] DAY, # 60 cap(s), Refills(s) 0, Pharmacy: [facility] [id number], 158, cm, 02/02/24 15:19:00 EDT, Height/Length Dosing, 62.7, kg, 02/02/24 15:19:00 EDT, Weight Dosing Start Date: 03/31/24 Status: Ordered losartan potassium 100 mg oral tablet (3 sources) Angiotensin 2 Receptor Dimitry Start: 05-05-2023 take 1 tablet by mouth once daily losartan 100 mg Tab 100 mg = 1 tab(s), Oral, Daily, # 90 tab(s), Refills(s) 0, Pharmacy: [facility]/pharmacy #[id number], 158, cm, 05/05/23 10:49:00 EDT, [...] Daily, # 90 tab(s), Refills(s) 1, Pharmacy: [facility]/pharmacy #[id number], 158, cm, 12/23/23 8:11:00 EDT, [...] Noted in c arelydio note and 05/19/2023 Najma nutrition services assistant note, added per outpatient CDI policy. Esophageal [...] Range Facil ity Ambulatory Visit Summaryon 0 04-19-2024 Ambulatory Visit Summary Ambulatory Visit Summary DAVID MCKINNEY :1945 Visit Date:04/19/2024 Ambulatory Visit Instructions Your Diagnosis Bradycardia BMI 25.0-25.9,adult Non-smoker Overweight Your Care Team Attending Physician - Garima Arredondo Primary Care Physician - Garima Arredondo This Is Your Medications List aspirin (aspirin 81 mg Oral EC Tab) celecoxib (celecoxib 200 mg Cap) metoprolol (metoprolol [...] Arthroscopy of knee. Discharge Vitals Temperature (Oral) 36.5 ?C Heart Rate (Peripheral) 42 Respiratory Rate 16 Blood Pressure 136/70 Height 157 cm Height 62 in Weight 63.9 kg Weight 140.58 lb BMI 25.92 What to do next Scheduled Follow-Up Appointments Friday 9:00 AM EDT With: Kirk ESPARZA, Richard Zhang Where: [facility] Friday 8:45 AM EST With: Ponce ESPARZA, Yohan Rdz Where: [address] [address]- Friday 8:00 AM EDT With: Where: [address] [address]- Medications What How Much When Instructions Unchanged [...] you are currently receiving treatment for. BMI 24.0-24.9, adult Bradycardia CAD (coronary artery disease) Dizziness GERD (gastroesophageal reflux disease) History of kidney stones HTN (hypertension) Hyperlipidemia Left arm swelling Left inguinal hernia RA (rheumatoid arthritis) Historical - Any problem that you are no longer receiving treatment for. BMI 27.0-27.9,adult Colon cancer screening Patient Survey You may receive a survey via text or e-mail asking about your office visit. Please share your experience with us by completing your survey. We appreciate your feedback and thank you for choosing us for your care. Normal [facility] Family Medicine Office/Clini c Noteon 04-19-2024 Family Medicine Office/Clinic Note Family Medicine Office/Clinic Note Chief Complaint Low Pulse HPI Staff Pt presents today due to low pulse at time of medicare wellness check. Pt denies lightheadedness. SOB. Does have brain picker visit scheduled on 04/30/24 History of Present Illness pt was seen at [facility] visit and heart rate was low. Review of Systems PHQ Score Initial Depression Screen Score: 0 SCORE Physical Exam Vitals & Measurements T: 36.5 ?C(Oral) HR: 42(Peripheral) RR: 16 BP: 136/70 SpO2: 96% HT: 62 in HT: 157 cm WT: 63.9 kg WT: 140.58 lb BMI: 25.92 General: alert, no acute distress ENMT: oral mucosa moist, no pharyngeal erythema or exudate Cardiovascular: regular rate and rhythm, normal peripheral perfusion Respiratory: Lungs CTA, respirations non labored Extremities: no deformity, no trauma Neurological: oriented x 4, LOC appropriate for age, CN II-XII intact, motor strength equal & normal bilaterally, speech normal Assessment/Plan 1. Bradycardia (R00.1: Bradycardia, unspecified) patient was at [facility] visit and pulse was 42 so he was placed on the schedule to be seen. pt is feeling well and denies any SOB, fatigue or chest pain. Dr. Serra encouraged him to cut metoprolol in half until he sees cardiology in a couple days. pt encouraged to see medical attention if he has SOB or chest pain. RTC as needed 2. BMI 25.0-25.9,adult (Z68.25: Body mass index [BMI] 25.0-25.9, adult) BMI education given 3. Non-smoker (Z78.9: Other specified health status) continue not smoking 4. Overweight (E66.3: Overweight) see above Orders: celecoxib, See Instructions, TAKE 1 CAPSULE BY MOUTH TWICE A DAY, # 60 cap(s), Refills(s) 0, Pharmacy: [id number], 158, cm, 02/02/24 15:19:00 EDT, Height/Length Dosing, 62.7, kg, 02/02/24 15:19:00 EDT, Weight Dosing Follow-up No qualifying data available Problem List/Past Medical History Ongoing BMI 24.0-24.9, adult Bradycardia CAD (coronary artery disease) Dizziness GERD (gastroesophageal reflux disease) History of kidney stones HTN (hypertension) Hyperlipidemia Left arm swelling Left inguinal hernia RA (rheumatoid arthritis) Historical BMI 27.0-27.9,adult Colon cancer screening Procedure/Surgical History Hip replacement (05/30/2020), Repair initial inguinal hernia, age 5 years or older; reducible (02/03/2019), Colonoscopy (09/29/2013), Placement of stent in cardiac conduit (08/25/2002), Repair of inguinal hernia (08/25/1979), Arthroscopy of knee. Medications aspirin 81 mg Oral EC Tab, Oral, Daily celecoxib 200 mg Cap, See Instructions metoprolol [...] to change: No. Household alcohol concerns: No., 04/19/2024 Substance Abuse - Denies Substance Abuse, 02/17/2019 Tobacco - Denies Tobacco Use, 04/19/2024 Never (less than 100 in lifetime) Tobacco Use:. Never Smokeless Tobacco Use:. Household tobacco concerns: No. Yes, 04/19/2024 Family History Cardiac arrest: Father. Immunizations Vaccine Date Status Comments zoster vaccine, inactivated 09/14/2023 Recorded zoster vaccine, inactivated 07/01/2023 Recorded influenza virus vaccine, inactivated 04/26/2023 Recorded influenza virus vaccine, inactivated 08/02/2022 Recorded SARS-CoV-2 (COVID-19) [id number].[id number] 08/02/2022 Recorded influenza virus vaccine, inactivated 08/28/2021 Recorded SARS-CoV-2 (COVID-19) mRNA BNT-162b2 vax 05/25/2021 Recorded 2023-03-24: TPV70 SARS-CoV-2 (COVID-19) mRNA BNT-162b2 vax 10/17/2020 Recorded 2023-03-24: TPV70 SARS-CoV-2 (COVID-19) mRNA BNT-162b2 vax 09/26/2020 Recorded 2023-03-24: TPV70 pneumococcal 13-valent vaccine 05/07/2020 Recorded influenza virus vaccine, inactivated 05/07/2020 Recorded influenza virus vaccine, inactivated 06/06/2019 Recorded Normal [facility] Comment on above: Result Comment: Elec tronically Signed By: Garima Arredondo\.br\Date and Time Signed: 04/19/24 10:00 EDT Ambulatory Visit Summaryon 0 04-06-2024 Ambulatory Visit [...] Appointments Friday 8:00 AM EDT With: Where: [facility] [address] [address]- Friday 9:00 AM EDT With: Richard Bradley MD Where: [facility] Friday 8:15 AM EDT With: Yohan Serra MD Where: [address] [phone]- Friday 8:15 AM EDT With: Yohan Serra MD Where: [address] [address]- You Need to Schedule the Following Appointments Follow Up with KAREEN RICHARDSON PA-C, URL When: Where: [address] [place] [address] [phone] Medications What How Much When Instructions Unchanged [...] for choosing us for your care. Normal [facility] Ambulatory Visit Summary Ambulatory Visit Summary DAVID [...] Appointments Friday 8:00 AM EDT With: Where: [address] [address]- Friday 9:00 AM EDT With: Richard Bradley MD Where: [facility] Friday 8:15 AM EDT With: Yohan Serra MD Where: [address] [address]- Friday 8:15 AM EDT With: Yohan Serra MD Where: [address] [address]- You Need to Schedule the Following Appointments Follow Up with DEBRA COYLE, KARI SEARS When: Where: [address] [place] [address] [phone] Medications What How Much When Instructions Unchanged [...] you for choosing us for your care. Tim [facility] Urology Office/Clinic Noteon 04-06-2024 Urology Office/Clinic Note Urology Office/Clinic Note Chief Complaint New patient, ER follow up from [facility] 03/27/24 HPI Staff Pt is a new pt. Never before seen in our office. (Verified on DA) Here today to f/u to [facility] ER 03/27/24 CC: Lt Flank Pain CT [...] 78 yo male new pt here for [facility] ER f/u due to ureteral stone. No PSAs found on [facility]. IPSS 2. REGGIE 2. 1. Ureteral stone with hydronephrosis (N13.2: Hydronephrosis with renal and ureteral calculous obstruction) [facility] ER visit 03/27/24 due to L flank [...] Contact Information DEBRA COYLE, KAREEN Nguyen, URL [address] [place] [address] [phone] Additional Instructions: f/u pending KUB and GUSTAVO Patient Education Kidney Stones, Zjit-mp-Qiyd Documentation recorded by the scribsultana Martinez accurately reflects the services(s) I performed [...] zoster vaccine, inactivated (more content not included)... [facility] Comment on above: Result Comment: Elec tronically Signed By: KAREEN RICHARDSON PA-C\.br\Date and Time Signed: 04/06/24 12:28 EDT\.br\Electronically Co-Signed By: Elena Martinez\.br\Date and Time Co-Signed: 04/06/24 11:52 EDT Physician Orderon 02-03-2024 Physician Order [id number]# 1.00TIFF [facility] RAD - MISCon 02-03-2024 RAD - MISC [id number]# 1.00TIFF [facility] RAD - Ultrasound Reporton RAD - Ultrasound Report [id number]# 1.00TIFF [facility] Ambulatory Visit Summaryon 0 02-02-2024 Ambulatory Visit Summary DAVID MCKINNEY Lula :1945 Visit Date:02/02/2024 Ambulatory Visit Instructions Your [...] Appointments Friday 8:00 AM EDT With: Where: [facility] Invalid Interpretation Code [address] [place] [address]- \.br\ Friday 8:15 AM EDT \.br\ With: Ponce ESPARZA, Yohan Rdz\.br\ Where: [facility] Medicine Office/Clini c Noteon 02-02-2024 Family Medicine [...] and warm to touch. will send to [facility] for doppler u/s and x ray. will call with results if those images are negative will order MRI. RTC 1 week Ordered: celecoxib, 200 mg = 1 cap(s), Oral, BID, # 60 cap(s), Refills(s) 0, [id number], 158, cm, 02/02/24 15:19:00 EDT, Height/Length Dosing, 62.7, kg, 02/02/24 15:19:00 EDT, Weight Dosing methylPREDNISolone, = 1 packet(s), Oral, As Directed, as directed on package labeling, X 6 day(s), # 21 tab(s), Refills(s) 0, Pharmacy: [facility]/pharmacy #[id number], 158, cm, 02/02/24 15:19:00 EDT, Height/Length Dosing, 62.7, kg, 02/02/24 15:19:00 EDT, Weight Dosing tramadol, 50 mg = 1 tab(s), Oral, Bedtime, # 12 tab(s), Refills(s) 0, Pharmacy: [facility]/pharmacy #[id number], 158, cm, 02/02/24 15:19:00 EDT, Height/Length Dosing, 62.7, kg, 02/02/24 15:19:00 EDT, Weight Dosing 2. BMI 25.0-25.9,adult (Z68.25: Body mass index [BMI] 25.0-25.9, adult) BMI education complete Ordered: celecoxib, 200 mg = 1 cap(s), Oral, BID, # 60 cap(s), Refills(s) 0, Pharmacy: [facility]/pharmacy #[id number], 158, cm, 02/02/24 15:19:00 EDT, Height/Length Dosing, 62.7, kg, 02/02/24 15:19:00 EDT, Weight Dosing methylPREDNISolone, = 1 packet(s), Oral, As Directed, as directed on package labeling, X 6 day(s), # 21 tab(s), Refills(s) 0, [id number], 158, cm, 02/02/24 15:19:00 EDT, Height/Length Dosing, 62.7, kg, 02/02/24 15:19:00 EDT, Weight Dosing tramadol, 50 mg = 1 tab(s), Oral, Bedtime, # 12 tab(s), Refills(s) 0, [id number], 158, cm, 02/02/24 15:19:00 EDT, Height/Length Dosing, 62.7, kg, 02/02/24 15:19:00 EDT, Weight Dosing 3. Non-smoker (Z78.9: Other specified health status) continue not smoking Ordered: celecoxib, 200 mg = 1 cap(s), Oral, BID, # 60 cap(s), Refills(s) 0, [id number], 158, cm, 02/02/24 15:19:00 EDT, Height/Length Dosing, 62.7, kg, 02/02/24 15:19:00 EDT, Weight Dosing methylPREDNISolone, = 1 packet(s), Oral, As Directed, as directed on package labeling, X 6 day(s), # 21 tab(s), Refills(s) 0, [id number], 158, cm, 02/02/24 15:19:00 EDT, Height/Length Dosing, 62.7, kg, 02/02/24 15:19:00 EDT, Weight Dosing tramadol, 50 mg = 1 tab(s), Oral, Bedtime, # 12 tab(s), Refills(s) 0, [id number], 158, cm, 02/02/24 15:19:00 EDT, Height/Length Dosing, 62.7, kg, 02/02/24 15:19:00 EDT, Weight Dosing Wrist pain, left (M25.532: Pain in left wrist) will send anti inflammatory, medrol dose pack and tramadol Ordered: tramadol, 50 mg = 1 tab(s), Oral, Bedtime, # 12 tab(s), Refills(s) 0, Pharmacy: [facility]/pharmacy #[id number], 158, cm, 02/02/24 15:19:00 EDT, [...] Directed metopr (more content not included)... Normal [facility] Comment on above: Result Comment: Elec tronically Signed By: Garima Arredondo\.br\Date and Time Signed: 02/02/24 15:39 EDT Ambulatory Visit Summaryon 0 12-23-2023 Ambulatory Visit Summary HANK DAVID Lula :1945 Visit Date:12/23/2023 Ambulatory Visit Instructions Your [...] Appointments Friday 8:00 AM EDT With: Where: [facility] Invalid Interpretation Code [address] [place] [address]- \.br\ Friday 8:15 AM EDT \.br\ With: Ponce ESPARZA, Yohan Rdz\.br\ Where: [facility] Medicine Office/Clini c Noteon 12-23-2023 Family Medicine Office/Clinic Note HPI Staff David is a 78 year old male presenting for one month follow up htn and CAD Patient is here for follow up on hypertension. How often are you checking your blood pressure? occasionally What are your average readings? doing well Yearly BMP: 04/29/23 MA questions/concerns: saw brain picker Jul 10 everything checked out okay Review [...] artery disease) (I25.10: Atherosclerotic heart disease of [place] coronary artery without angina pectoris) - Stable. [...] Daily, # 90 tab(s), Refills(s) 1, Pharmacy: [facility]/pharmacy #[id number], 158, cm, 12/23/23 8:11:00 EDT, Height/Length Dosing, 65.8, kg, 12/23/23 8:11:00 EDT, Weight Dosing pantoprazole, 40 mg = 1 tab(s), Oral, Daily, # 90 tab(s), Refills(s) 1, Pharmacy: [facility]/pharmacy #[id number], 158, cm, 12/23/23 8:11:00 EDT, [...] virus vaccine, inactivated 08/02/2022 Recorded SARS-CoV-2 (COVID-19) [id number].[id number] 08/02/2022 Recorded influenza virus vaccine, inactivated 08/28/2021 Recorded SARS-CoV-2 (COVID-19) mRNA BNT-162b2 vax 05/25/2021 Recorded 2023-03-24: TPV70 SARS-CoV-2 (COVID-19) mRNA BNT-162b2 vax 10/17/2020 Recorded 2023-03-24: TPV70 SARS-CoV-2 (COVID-19) mRNA BNT-162b2 vax 09/26/2020 Recorded 2023-03-24: TPV70 pneumococcal 13-valent vaccine 05/07/2020 Recorded influenza virus vaccine, inactivated 05/07/2020 Recorded influenza virus vaccine, inactivated 06/06/2019 Recorded Normal [facility] Comment on above: Result Comment: [...] numbers. This can be done either in [place] ([place] or metric measurements. Note that charts and online BMI calculators are available to help you find your BMI quickly and easily without having to do these calculations yourself. To calculate your BMI in [place] ([place] measurements: 1. Measure your weight in [...] for Disease Control and Prevention: www.cdc.gov ? [place] [employer] Heart Association: www.heart.org ? National Heart, Lung, and Blood Lucas: www.nhlbi.nih.gov Summary ? Body mass index (BMI) is a number that is calculated from a person's weight and height. ? BMI may help estimate how much of a person's weight is composed of fat. BMI can help identify those who may be at higher risk for certain medical problems. ? BMI can be measured using [place] measurements or metric measurements. ? BMI charts are used to identify whether you are underweight, normal weight, overweight, or obese. This information is not intended to replace advice given to you by your health care provider. Make sure you discuss any questions you have with your health care provider. Document Revised: 05/03/2020 Document Reviewed: 03/10/2020 TeamLINKS Patient Education ? 2022 [facility]. [facility] Ambulatory Visit Summaryon 0 11-10-2023 Ambulatory Visit Summary DAVID MCKINNEY Lula :1945 Visit Date:11/10/2023 Ambulatory Visit Instructions Your [...] AM EDT With: Yohan Serra MD Where: [facility] Invalid Interpretation Code [address] [place] [address]- \.br\ Friday 8:00 AM EDT \.br\ With: Yohan Serra MD\.br\ Where: [facility] Medicine Office/Clini c Noteon 11-10-2023 [...] artery disease) (I25.10: Atherosclerotic heart disease of [place] coronary artery without angina pectoris) - ASA [...] Daily, # 90 tab(s), Refills(s) 1, Pharmacy: [facility]/pharmacy #[id number], 158, cm, 11/10/23 9:58:00 EDT, Height/Length Dosing, 68.1, kg, 11/10/23 9:58:00 EDT, Weight Dosing pantoprazole, 40 mg = 1 tab(s), Oral, Daily, # 90 tab(s), Refills(s) 1, Pharmacy: [facility]/pharmacy #[id number], 158, cm, 11/10/23 9:58:00 EDT, Height/Length [...] virus vaccine, inactivated 08/02/2022 Recorded SARS-CoV-2 (COVID-19) [id number].[id number] 08/02/2022 Recorded influenza virus vaccine, inactivated 08/28/2021 Recorded SARS-CoV-2 (COVID-19) mRNA BNT-162b2 vax 05/25/2021 Recorded 2023-03-24: TPV70 SARS-CoV-2 (COVID-19) mRNA BNT-162b2 vax 10/17/2020 Recorded 2023-03-24: TPV70 SARS-CoV-2 (COVID-19) mRNA BNT-162b2 vax 09/26/2020 Recorded 2023-03-24: TPV70 pneumococcal 13-valent vaccine 05/07/2020 Recorded influenza virus vaccine, inactivated 05/07/2020 Recorded influenza virus vaccine, inactivated 06/06/2019 Recorded Normal [facility] Comment on above: Result Comment: [...] numbers. This can be done either in [place] ([place] or metric measurements. Note that charts and online BMI calculators are available to help you find your BMI quickly and easily without having to do these calculations yourself. To calculate your BMI in [place] ([place] measurements: 1. Measure your weight in [...] for Disease Control and Prevention: www.cdc.gov ? [place] [employer] Heart Association: www.heart.org ? National Heart, Lung, and Blood Lucas: www.nhlbi.nih.gov Summary ? Body mass index (BMI) is a number that is calculated from a person's weight and height. ? BMI may help estimate how much of a person's weight is composed of fat. BMI can help identify those who may be at higher risk for certain medical problems. ? BMI can be measured using [place] measurements or metric measurements. ? BMI charts are used to identify whether you are underweight, normal weight, overweight, or obese. This information is not intended to replace advice given to you by your health care provider. Make sure you discuss any questions you have with your health care provider. Document Revised: 05/03/2020 Document Reviewed: 03/10/2020 ElseTMAT Patient Education ? 2022 [employer] Tim [facility] Heart and Vascular Office/Cl inic Noteon [...] with voice recognition artificial intelligence software, specifically Radiation Watch, aXess [place] and or ownCloud. Substitutions may have occurred due to the inherent limitations of voice recognition and artificial intelligence software. Documentation services were performed after patient or guardian consented to allow [employer] to record this visit. ION project management specialist and provider reviewed before signing. ION: [...] Tobacco Use:. Never (more content not included)... [facility] Comment on above: Result Comment: Elec tronically Signed By: John Whitt MD\.br\Date and Time Signed: 07/19/23 12:36 EST\.br\Electronically Co-Signed By: Irnee Crespo\.br\Date and Time Co-Signed: 07/10/23 17:06 EST Physician Orderon 07-11-2023 Physician Order [id number] 5#1.00TIFF [facility] Heart and Vascular Office/Cl inic [...] few years ago through a program in [facility] and had no significant findings. The patient reports a history of 4 stents and notes no complications with them apart from occasional mild chest discomfort. He had an echocardiogram prior to his hip surgery on 05/30/2020 in [place]. It has been some time since his last stress test. 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 FAMILY [...] hyperlipidemia. He was recently hypertensive with some qmteqavum-ht-pbyjffh blood pressure. He did improve after Dr. [...] with voice recognition artificial intelligence software, specifically Radiation Watch, aXess [place] and or ownCloud. Substitutions may have occurred due to the inherent limitations of voice recognition and artificial intelligence software. Documentation services were performed after patient or guardian consented to allow [employer] to record this visit. ION project management specialist and provider reviewed before signing. ION: [...] Medications aspirin (more content not included)... Normal [facility] Comment on above: Result Comment: Elec tronically Signed By: Jose Eduardo ESPARZA, John Trimble\.br\Date and Time Signed: 07/10/23 14:58 EST\.br\Electronically Co-Signed By: Marycruz Roa\.br\Date and Time Co-Signed: 06/05/23 15:02 EDT Stress EKG Tracingson 2022 Stress EKG Tracings [id number] #1.00TIFF Normal [facility] NM Myocardial Spect Rest/Str ess 1 [...] (Electronic Signature): 07/02/2023 8:50 pm Signed by: John Whitt MD Transcribed by: trudy Technologist: JEREMY Technical Comments Rest Dose (mCi Tc99m Cardiolite): 10.3 Stress Dose (mCi Tc99M Cardiolite): 31.3 Normal [facility] US Carotid Duplex Bilateralo n 06-26-2023 [...] Criteria Committee. Vascular Medicine 2020; https://journals.sag epub.com/doi/full/10 .[id number] 253 Ordering Provider: John Whitt FINAL REPORT Dictated: 06/26/2023 11:17 am Harpal Anderson M.D. Signed (Electronic Signature): 06/26/2023 11:17 am Signed by: Harpal Anderson M.D. Transcribed by: MARIAM Technologist: SAUL Technical Comments Velocities Right Vert. Antegrade Yes Velocities Left Vert. Antegrade Yes [facility] Consent for Treatmenton Consent for Treatment [id number] #1.00TIFF [facility] Physician Referralon 023 Physician Referral [id number] #1.00TIFF [facility] [facility] Physician Orderon 06-06-2023 Physician Order [id number] #1.00TIFF [facility] Transfer Inon 05-21-2023 Transfer In [id number] #1.00CD:127 [facility] Auth for Release of Medical Recordson 05-19-2023 Auth for Release of Medical Records [id number] #1.00CD:127 [facility] Historical Records Officeon 05-15-2023 Historical Records Office [id number]#1.00CD:127 [facility] Lab Reportson 05-15-2023 Lab Reports [id number]# 1.00CD:127 [facility] Patient Logson 05-15-2023 Patient Logs [id number] #1.00CD:127 Normal [facility] Physician Referralon 023 Physician Referral [id number] #1.00CD:127 Normal [facility] Ambulatory Visit Summaryon 0 05-13-2023 Ambulatory [...] Follow-Up Appointments Friday 10:00 AM EDT With: Ponce ESPARZA, Yohan Rdz Where: [facility] Normal [address] [place] [address]- \.br\ Medications\.br\ What How Much When Instructions\.br\ [...] (hypertension)\.b r\ Left inguinal hernia\.br\ \.br\ [facility] Family Medicine Office/Clini c Noteon 05-13-2023 Family Medicine Office/Clinic Note HPI Staff Simone is a 77 year old male here to establish care Establish Care: History: Htn, Gerd, CAD Last provider: Sommer Any recent labs: 04/29 23 MA has labs with him Health Maintenance UTD: [...] - Dizziness is improving - Needs new brain picker as his has retired - HTN are [...] artery disease) (I25.10: Atherosclerotic heart disease of [place] coronary artery without angina pectoris) - Wants to see Anthony - Will order Ordered: Body Mass Index (BMI) documented 3008F Current tobacco non-user 1036F Depression Screening Negative 3352F [facility] External Ambulatory Referral [facility] Internal Ambulatory Referral Influenza immunization administered or previously received 4274F Most recent diastolic blood pressure <80 mm Hg 3078F Patient screen for fall risk: no falls in last year or 1 fall with no injury in last year 1101F Systolic BP <130 mm Hg (Most Recent) 3074F 2. Dizziness (R42: Dizziness and giddiness) - Improving - Follow up with PT Ordered: [facility] External Ambulatory Referral [facility] Internal Ambulatory Referral 3. GERD (gastroesophageal reflux disease) (K21.9: Gastro-esophageal reflux disease without esophagitis) - Stable Ordered: Body Mass Index (BMI) documented 3008F Current tobacco non-user 1036F Depression Screening Negative 3352F [facility] External Ambulatory Referral [facility] Internal Ambulatory Referral Influenza immunization administered or [...] tobacco non-user 1036F Depression Screening Negative 3352F [facility] External Ambulatory Referral [facility] Internal Ambulatory Referral Influenza immunization administered or [...] tobacco non-user 1036F Depression Screening Negative 3352F [facility] External Ambulatory Referral [facility] Internal Ambulatory Referral Influenza immunization administered or [...] age 5 years or older; reducible (02/03/2019), [place] (more content not included)... [facility] Comment on above: Result Comment: Elec tronically Signed By: Ponce ESPARZA, Yohan Rdz\.br\Date and Time Signed: 05/13/23 15:40 EDT Physician Orderon 05-07-2023 Physician Order [id number] #1.00CD:127 [facility] Ambulatory Visit Summaryon 0 05-05-2023 Ambulatory Visit [...] EDT With: Ponce ESPARZA, Yohan Rdz Where: [facility] Normal [address] [place] [address] \.br\ Medications\.br\ What How Much When Instructions\.br\ New losartan (losartan 100 mg Tab) 1 Tablets By Mouth Every day Pickup at [facility]/pharmacy #[id number]\.br\ Unchanged aspirin (aspirin 81 mg Oral EC [...] if questions or concerns \.br\ Pharmacy Information\.br\ [facility]/pharmacy #[id number]: [address], [place] [phone] [phone]\.br\ \.br\ What How Much When Comments\.br\ Stop Taking meloxicam (meloxicam 15 mg Tab) 1 Tablets By Mouth Every day\.br\ Allergies\.br\ No Known Medication Allergies\.br\ Problems\.br\ Ongoing - Any problem that you are currently receiving treatment for.\.br\ CAD (coronary artery disease)\.br\ Finger injury\.br\ GERD (gastroesophageal reflux disease)\.br\ HTN (hypertension)\.b r\ Left inguinal hernia\.br\ \.br\ [facility] Family Medicine Office/Clini c Noteon 05-05-2023 [...] Will add losartan - Pt to call Physician Pediatrician to see if he needs a stress test given his cardiac hx - Want to try and increase the HR given the dizziness. - I am hoping to cut the BB down a little. But need to get the BP under control first. 2. CAD (coronary artery disease) (I25.10: Atherosclerotic heart disease of [place] coronary artery without angina pectoris) - Continue [...] Daily, # 90 tab(s), Refills(s) 0, Pharmacy: [facility]/pharmacy #[id number], 158, cm, 05/05/23 10:49:00 EDT, [...] virus vaccine, inactivated 08/02/2022 Recorded SARS-CoV-2 (COVID-19) mRNAMUL.ORD![id number] 08/02/2022 Recorded influenza virus vaccine, inactivated 08/28/2021 Recorded SARS-CoV-2 (COVID-19) mRNA BNT-162b2 vax 05/25/2021 Recorded 2023-03-24: TPV70 SARS-CoV-2 (COVID-19) mRNA BNT-162b2 vax 10/17/2020 Recorded 2023-03-24: TPV70 SARS-CoV-2 (COVID-19) mRNA BNT-162b2 vax 09/26/2020 Recorded 2023-03-24: TPV70 pneumococcal 13-valent vaccine 05/07/2020 Recorded influenza virus vaccine, inactivated 05/07/2020 Recorded influenza virus vaccine, inactivated 06/06/2019 Recorded Normal [facility] Comment on above: Result Comment: Elec tronically Signed By: Ponce ESPARZA, Yohan Garcia.br\Date and Time Signed: 05/05/23 11:21 EDT Immunization Recordson 04-29 Immunization Records [id number] #1.00CD:127 Normal [facility] Covid-19 PCR (CVDTB)on 08-25 SARS-CoV-2 (COVID-19) RNA CUONG+probe Ql (Unsp spec) Detected Critically abnormal NOT DETECTED [facility] Comment on above: Result Comment: This test is not yet approved or cleared by the [place] FDA. When there are no FDA-approved or cleared tests available, and other criteria are met, FDA can make tests available under an emergency access mechanism called an Emergency Use Authorization (EUA). The EUA for this test is supported by the [place] of Health and Human Service's (HHS's) declaration [...] used). Performed By: #### C VDTB #### [facility] [address] [place] [address] Dr. Romeo Mcfadden Covid-19 PCR (CVDTBH)on 08-26 EUA Statement SEE BELOW Normal [facility] Comment on above: Result Comment: This test is not yet approved or cleared by the [place] FDA. When there are no FDA-approved or cleared tests available, and other criteria are met, FDA can make tests available under an emergency access mechanism called an Emergency Use Authorization (EUA). The EUA for this test is supported by the [place] of Health and Human Service?s (HHS?s) declaration [...] SARS-CoV-2. Performed By: #### C VDTBH #### [facility] [address] [place] [address] Chaparrita Drummond SARS-CoV-2 (COVID-19) RNA CUONG+probe Ql (Unsp spec) Not detected Normal NOT DETECTED [facility] Comment on above: Result Comment: This test is not yet approved or cleared by the [place] FDA. When there are no FDA-approved or cleared tests available, and other criteria are met, FDA can make tests available under an emergency access mechanism called an Emergency Use Authorization (EUA). The EUA for this test is supported by the [place] of Health and Human Service's (HHS's) declaration [...] used). Performed By: #### C VDTBH #### [facility] [address] [place], [place] [id number] Chaparritanhi Drummond Vital Signs Date Time Vital Sign Value Performing Clinician Macy patterson 04-06-2024 11:39-0400 Diastolic blood pressure 89 mm[Hg] KAREEN DEBRA [facility] 04-06-2024 11:39-0400 Mean blood pressure 109 mm[Hg] KAREEN DEBRA [facility] 04-06-2024 11:39-0400 Systolic blood pressure 149 mm[Hg] KAREEN DEBRA [facility] 04-06-2024 11:27-0400 Body temperature 97.88 [degF] KAREEN DEBRA [facility] 04-06-2024 11:27-0400 Diastolic blood pressure 79 mm[Hg] KAREEN DEBRA [facility] 04-06-2024 11:27-0400 Heart rate 53 /min KAREEN DEBRA [facility] 04-06-2024 11:27-0400 Respiratory rate 16 /min KAREEN DEBRA [facility] 04-06-2024 11:27-0400 Systolic blood pressure 149 mm[Hg] KAREEN DEBRA [facility] 07-10-2023 14:21-0500 Diastolic blood pressure 68 mm[Hg] John Whitt [facility] 07-10-2023 14:21-0500 Heart rate 63 /min John Whitt [facility] 07-10-2023 14:21-0500 SaO2% (BldA) [Mass fraction] 96 % John Whitt [facility] 07-10-2023 14:21-0500 Systolic blood pressure 138 mm[Hg] John Childersgena [facility] 06-05-2023 12:51-0400 Diastolic blood pressure 78 mm[Hg] John Jose Eduardo [facility] 06-05-2023 12:51-0400 Heart rate 51 /min John Whitt [facility] 06-05-2023 12:51-0400 SaO2% (BldA) [Mass fraction] 96 % John Jose Eduardo [facility] 06-05-2023 12:51-0400 Systolic blood pressure 140 mm[Hg] John Whitt [facility] Encounters Encounter Date Encounter Type Care Provider Facility Start: 04-19-2024 End: 04-19-2024 ambulatory Garima L Radha Facility:[facility] Start: 04-14-2024 ambulatory Garima Radha [facility] Start: 04-06-2024 End: 04-06-2024 ambulatory KAREEN RICHARDSON Facility:[facility] Start: 04-06-2024 End: 04-06-2024 Patient encounter procedure [facility] Start: 03-29-2024 End: 03-29-2024 ambulatory Yohan Serra Facility:[facility] Start: 02-02-2024 End: 02-02-2024 ambulatory Garima L Radha Facility:[facility] Start: 12-23-2023 End: 12-23-2023 ambulatory Yohan Serra Facility: [facility] Start: 11-10-2023 End: 11-10-2023 ambulatory Yohan Serra Facility:[facility] Start: 07-10-2023 End: 07-10-2023 ambulatory John Whitt Facility:[facility] Start: 07-10-2023 End: 07-10-2023 Patient encounter procedure John Whitt [facility] Start: 06-25-2023 End: 06-25-2023 ambulatory John Whitt Facility:[facility] Start: 06-25-2023 End: 06-25-2023 Patient encounter procedure John Whitt [facility] Start: 06-05-2023 End: 06-05-2023 ambulatory John Whitt Facility:[facility] Start: 06-05-2023 End: 06-05-2023 Patient encounter procedure John Whitt [facility] Start: 05-15-2023 ambulatory Garima Garcia [facility]: [facility] Start: 05-13-2023 End: 05-13-2023 ambulatory Yohan Serra Facility: [facility] Start: 05-05-2023 ambulatory Garima Garcia Facility: [facility] Start: 05-05-2023 End: 05-05-2023 ambulatory Yohan Serra Facility: [facility] Start: 09-04-2021 End: 09-04-[address] NGOC [...] Treatment Date Care Activity Detail Author Start: 04-19-2025 ambulatory Ambulatory Facility:[facility] Start: 07-19-2024 ambulatory Ambulatory Facility:[facility] Start: 06-22-2024 ambulatory Ambulatory Facility:[facility] Immunizations Immunization Date Immunization Notes Care Provider Fa cili 09-14-2023 zoster vaccine recombinant KAREEN RICHARDSON [facility] 07-01-2023 zoster vaccine recombinant KAREEN RICHARDSON [facility] 04-26-2023 influenza virus vaccine, unspecified formulation John Whitt [facility] 08-02-2022 influenza virus vaccine, unspecified formulation John Whitt [facility] 08-02-2022 SARS-CoV-2 (COVID-19 ) mRNAMUL.ORD![id number] John Whitt [facility] 08-28-2021 influenza virus vaccine, unspecified formulation John Whitt [facility] 05-25-2021 SARS-CoV-2 (COVID-19 ) mRNA BNT-162b2 vax John Whitt [facility] Comment on above: Result Comment: 2022: TPV70 10-17-2020 SARS-CoV-2 (COVID-19 ) mRNA BNT-162b2 vax John Whitt [facility] Comment on above: Result Comment: 2022: TPV70 09-26-2020 SARS-CoV-2 (COVID-19 ) mRNA BNT-162b2 vax John Whitt [facility] Comment on above: Result Comment: 2022: TPV70 05-07-2020 influenza virus vaccine, unspecified formulation John Whitt [facility] 05-07-2020 pneumococcal conjugate vaccine, 13 valent John Whitt [facility] 06-06-2019 influenza virus vaccine, unspecified formulation John Whitt [facility] Payers Date Payer Category Payer Medicare [id number] 1958 Unknown [id number] 1945 Unknown [id number] 2.16.84 0.1.755404.3.579.2.593 1945 Unknown [id number] 2.16.84 0.1.400410.3.579.2.593 1945 Unknown [id number] 2.16.8 40.1.561656.3.579.2.727 1945 Unknown [id number] 2.16.8 40.1.480768.3.579.2.727 1945 Unknown [id number] 2.16.8 40.1.606794.3.579.2.727 1945 Unknown [id number] 2.16.8 40.1.722849.3.579.2.727 1945 Unknown [id number] 2.16.8 40.1.366519.3.579.2.727 1945 Unknown [id number] 2.16.8 40.1.439186.3.579.2.727 1945 Unknown [id number] 2.16.8 40.1.458713.3.579.2.727 1945 Unknown [id number] 2.16.8 40.1.259014.3.579.2.727 1945 Unknown [id number] 2.16.8 40.1.715961.3.579.2.727 1945 Unknown [id number] 2.16.8 40.1.945004.3.579.2.727 1945 Unknown [id number] 2.16.8 40.1.300732.3.579.2.727 1945 Unknown [id number] 2.16.8 40.1.667004.3.579.2.727 1945 Unknown [id number] 2.16.8 40.1.036987.3.579.2.727 1945 Unknown [id number] 2.16.8 40.1.813183.3.579.2.727 1945 Unknown [id number] 2.16.8 40.1.397218.3.579.2.727 1945 Unknown [id number] 2.16.8 40.1.911104.3.579.2.727 Social History Date Type Detail Facility Start: 06-05-2023 End: 04-06-2024 Tobacco smoking status Never smoked tobacco (finding) [facility] Tobacco smoking status Never [facility] Sex Assigned At Male [facility] Functional Status Date Assessment Result Facility 04-06-2024 Functional Status N/A [facility] 07-10-2023 Functional Status No [facility] 06-05-2023 Functional Status No [facility] Clinical Notes 06-25-2023 to 04-19-2024 Radiology Note Date & Type Note Facility 04-19-2024 Note Patient Education Emergency Medicine Heart Attack The heart is a muscle that needs oxygen to survive. A heart attack is a condition that occurs when your heart does not get enough oxygen. When this happens, the heart muscle begins to . This can cause permanent damage if not treated right away. A heart attack is a medical emergency. This condition may be called a myocardial infarction, or NJ. It is also known as acute coronary syndrome (ACS). ACS is a term used to describe a group of conditions that affect blood flow to the heart. What are the causes? This condition may be caused by: ? Atherosclerosis. This occurs when a fatty substance called plaque builds up in the arteries and blocks or reduces blood supply to the heart. ? A blood clot. A blood clot can develop suddenly when plaque breaks up within an artery and blocks blood flow to the heart. ? An abnormal heartbeat (arrhythmia). ? Conditions that cause a decrease of oxygen to the heart, such as anemiaorrespiratory failure. ? A spasm, or severe tightening, of a blood vessel that cuts off blood flow to the heart. ? Tearing of a coronary artery (spontaneous coronary artery dissection). Other causes may include: ? Using drugs such as cocaine or methamphetamine. ? Low blood pressure (hypotension). What increases the risk? The following factors may make you more likely to develop this condition: ? Aging. The risk for a heart attack increases as you get older. ? Having a personal or family history of chest pain, heart attack, stroke, or narrowing of the arteries in the legs, arms, head, or stomach (peripheral vascular disease). ? Having taken chemotherapy or immune-suppressing medicines. ? Being male. ? Being overweight or obese. ? Having any of these conditions: ? High blood pressure. ? High cholesterol (hypercholesterolemia). ? Diabetes. ? Making lifestyle choices such as: ? Drinking too much alcohol. ? Not getting regular exercise. ? Smoking. What are the signs or symptoms? Symptoms of this condition may vary, depending on factors like gender and age. Symptoms may include: ? Chest pain. It may feel like: ? Crushing or squeezing. ? Tightness, pressure, fullness, or heaviness. ? Pain in the arm, neck, jaw, back, or upper body. ? Heartburn or upset stomach. ? Shortness of breath. ? Nausea. ? Sudden cold sweats. ? Sudden light-headedness, dizziness, or passing out. ? Feeling tired (fatigue). How is this diagnosed? This condition may be diagnosed with: ? Imaging tests, such as: ? Electrocardiogram (ECG) to measure the electrical activity of your heart. ? CT scan. ? Coronary angiogram. For this test, dye is injected into the heart arteries, and X-rays are taken. ? Echocardiogram. This is a test that uses sound waves to produce detailed images of the heart. ? Blood tests to check for cardiac markers. These chemicals are released by a damaged heart muscle. These tests may be repeated at certain time intervals. How is this treated? A heart attack must be treated as soon as possible. Treatment may include: ? Medicines to: ? Break up or dissolve blood clots (fibrinolytic therapy). ? Thin your blood and help prevent blood clots. ? Treat blood pressure. ? Improve blood flow to the heart, such as nitroglycerin. ? Reduce pain. ? Reduce cholesterol, such as statins. ? Angioplasty and stent placement. These are procedures to widen a blocked artery and keep it open. ? Coronary artery bypass graft (CABG) or open heart surgery. This enables blood to flow to the heart by going around the blocked part of the artery. ? Cardiac rehabilitation. This improves your health and well-being through exercise, education, and counseling. Follow these instructions at home: Medicines ? Take pjbo-iqw-zufgmvt and prescription medicines only as told by your health care provider. ? Do not take the following medicines unless your health care provider says it is okay to take them: ? NSAIDs, such as ibuprofen, naproxen, or celecoxib. ? Any vitamins or supplements. ? Hormone replacement therapy that contains estrogen with or without progestin. ? If you are taking blood thinners: ? Talk with your health care provider before you take any medicines that contain aspirin or NSAIDs. These medicines increase your risk for dangerous bleeding. ? Take your medicine exactly as told, at the same time every day. ? Avoid activities that could cause injury or bruising, and follow instructions about how to prevent falls. ? Wear a medical alert bracelet or carry a card that lists what medicines you take. Lifestyle ? Do not use any products that contain nicotine or tobacco. These products include cigarettes, chewing tobacco, and vaping devices, such as e-cigarettes. If you need help quitting, ask your health care provider. ? Avoid secondhand smoke. ? (more content not included)... [facility] 04-06-2024 Hospital Discharge instructions Patient Education 04/06/2024 11:52:01 Kidney Stones, Hrhu-eo-Qxok Kidney Stones Kidney stones are rock-like masses [...] Follow these instructions at home: Medicines Take xmko-okn-nodjqzo and prescription medicines only as told by [...] Kidney Foundation (NKF): www.kidney.org [facility] (F): www.urologyhealth.org Contact a doctor if: You have [...] provider. Document Revised: 04/15/2022 Document Reviewed: 04/15/2022 [employer] Patient Education 2022 [facility]. Follow Up Care 03/29/2024 09:23:26 With:KAREEN RICHARDSON PA-C, URL Address: [address] [place] [address] [phone] When: Unknown [facility] 04-06-2024 Note Patient Education Urology Kidney Stones [...] these instructions at home: Medicines ? Take vrgj-gqm-boeeifp and prescription medicines only as told by [...] provider. Document Revised: 04/15/2022 Document Reviewed: 04/15/2022 [employer] Patient Education ? 2022 [facility]. [facility] 06-25-2023 Note Echocardiology Procedure Exam Date/Time Accession # Ordering Echo Transthoracic 06/25/2023 08:39 EDT [id number] Jose Eduardo ESPARZA, John Trimble CPT code [id number] Reason for Exam (Echo Transthoracic Complete) I25.10;CAD Coronary artery disease Report [facility] [address] [place] [address] Adult Echocardiogram Report Name: DAVID MCKINNEY Study Date: 06/25/2023 07:55 AM BP: 151/70 mmHg Patient Location: [facility] HR: 50 : 1945 Gender: Male Height: 63 in Age: 77 yrs Ethnicity: [facility] Weight: 144 lb Reason For Study: CAD Coronary artery disease BSA: 1.7 m2 History: HTN,Stents Ordering Physician: Jose Eduardo^John^Leatha. Referring Physician: John Whitt Performed By: Brigette [...] Signed by: John Whitt MD Transcribed by: Brigitte Technologist: [facility] Evaluation + Plan note Future Appointments Appointment Date:07/10/2023 02:15:00 PM Scheduled Provider:John Whitt MD [facility] Appointment Type:Cardiology Follow Up ([facility]) Appointment Date:11/10/2023 10:00:00 AM Scheduled Provider:Yohan Serra MD Location:[facility] Appointment Type: Open Appointment Date:04/19/2024 08:00:00 AM Scheduled Provider: Location:[facility] Appointment Type: Medicare Wellness Subsequent Future Scheduled TestsNM Myocardial Spect Rest/Stress 1 Day 06/05/23Echo Transthoracic Complete 06/05/23US Carotid Duplex Bilateral 06/05/23 [facility] Evaluation + Plan note Future Appointments Appointment Date:07/10/2023 02:15:00 PM Scheduled Provider:[facility] Type:Cardiology Follow Up ([facility]) Appointment Date:11/10/2023 10:00:00 AM Scheduled Provider:Yohan Serra MD Location:[facility] Appointment Type:FM Open Appointment Date:04/19/2024 08:00:00 AM Scheduled Provider: Location:[facility] Appointment Type:FM Medicare Wellness Subsequent [facility] Evaluation + Plan note Future Appointments Appointment Date:11/10/2023 10:00:00 AM Scheduled Provider:Yohan Serra MD Location:[facility] Appointment Type: Open Appointment Date:04/19/2024 08:00:00 AM Scheduled Provider: Location:[facility] Appointment Type: Medicare Wellness Subsequent [facility] Evaluation + Plan note Future Appointments Appointment Date:04/19/2024 08:00:00 AM Scheduled Provider: Location:[facility] Appointment Type: Medicare Wellness Subsequent Appointment Date:04/30/2024 09:00:00 AM Scheduled Provider:Richard Bradley MD [facility] Type:Cardiology Follow Up ([place]) Appointment Date:05/10/2024 08:15:00 AM Scheduled Provider:Yohan Serar MD [facility] [facility] Appointment Type: Open Appointment Date:06/22/2024 08:15:00 AM Scheduled Provider:Yohan Serra MD Location:[facility] Appointment Type: Open [facility] Hospital course Narrative No data available for this section [facility] Hospital Discharge instructions No data available for this section [facility] Progress note No data available for this section [facility] Summary Purpose Family History No Family [...] content) DATE CREATED AUTHOR 09/07/2021 [facility] DATE CREATED AUTHOR AUTHOR'S YUMIKO GEORGES 04/20/2024 [facility] Patient Care team informatio n (unrecognized section and content) Personnel Name: Garima Arredondo Address: Address: [address] [place] [address]- Personnel Name: Garima Arredondo Address: Address: [address] [place] [address]- Personnel Name: Garima Arredondo Address: Address: [address] [place] [address]- Personnel Name: Garima Arredondo Address: Address: [address] [place] [address]- FOR RECORDS PERTAINING TO PATIENTS WHO ARE [...] BE BASED ON THE PRIMARY CLINICAL RECORDS. [facility] [employer] [facility]. provides no warranty or guarantee of the accuracy or completeness of information in this document.
== END 2024-04-22 07:53 | disposition home or self-care (01) ==
LOC: CT 07:52
PROVIDERS: PCP Family Medicine; Visit Provider Urology
DX: Z87.442 Personal history of urinary calculi (principal)
CPT/HCPCS: 74176